=== PATIENT | male | born 1930 | race Two or more races ===

== ENCOUNTER 2018-03-21 19:00 | Inpatient (IN) | payer MEDICAID ==
--- NOTE | 2018-03-21 19:12 | EDPHY ---
H & P Stated Complaint: Weak, Swollen ankles Time Seen by Provider: 03/21/18 19:12 - Personal History Current Tetanus/Diphtheria Vaccine: Unsure Current Tetanus Diphtheria and Acellular Pertussis (TDAP): Unsure - Medical/Surgical History Hx Asthma: No Hx Chronic Respiratory Disease: No Hx Diabetes: No Hx Cardiac Disease: No Hx Renal Disease: No Hx Cirrhosis: No Hx Alcoholism: No Hx HIV/AIDS: No Hx Splenectomy or Spleen Trauma: No Other PMH: Diabetes, bradycardia, prostatectomy, glaucoma L eye - Social History Smoking Status: Never smoked Constitutional: Initial Vital Signs Temperature (C) 36.5 C 03/21/18 19:02 Heart Rate 45 L 03/21/18 19:02 Respiratory Rate 16 03/21/18 19:02 Blood Pressure 173/65 H 03/21/18 19:02 O2 Sat (%) 97 03/21/18 19:02 O2 Delivery Mode Room Air Allergies/Adverse Reactions: No Known Allergies Allergy (Unverified 09/16/16 20:10) Home Medications: Medication Instructions Recorded NK [No Known Home Meds] 03/21/18 Medical Decision Making ED Course/Re-evaluation: CHIEF COMPLAINT: Bradycardia, near syncope HISTORY OF PRESENT ILLNESS: The patient is an 87 y/o male with a history of bradycardia complaining of peripheral edema, near syncope, fatigue, and bradycardia. He was advised to have a pacemaker placed about a year ago. He refused at that time. He fell last week and was worked up for it. He reports having peripheral edema and fatigue prompting his visit. In triage he had a pulse of 28. He denies any other associated symptoms. He would like a pacemaker placed. REVIEW OF SYSTEMS: A 10 point review of systems was performed and is negative with the exception of the elements mentioned in the history of present illness. PHYSICAL EXAM: HR, BP, O2 Sat, RR. Temp noted General Appearance: Alert, well hydrated, appropriate, and non-toxic appearing. Head: Atraumatic without scalp tenderness or obvious injury Eyes: Pupils equal, round, reactive to light and accommodation, EOMI, no trauma , no injection. Ears: Clear bilaterally, no perforation, normal landmarks Nose: Atraumatic, no rhinorrhea, clear. Throat: There is no erythema or exudates, no lesions, normal tonsils, mucus membranes moist. Neck: Supple, nontender, no lymphadenopathy. Respiratory: No retractions, no distress, no wheezes, and no accessory muscle use. Lungs are clear to auscultation bilaterally. Cardiovascular: Bradycardic regular rate and rhythm, no murmurs, rubs, or gallops. Gastrointestinal: Abdomen is soft, nontender, non-distended, no masses, no rebound, no guarding, no peritoneal signs. Musculoskeletal: Normal active ROM of all extremities, atraumatic. Neurological: Alert, appropriate, and interactive. Skin: No rashes, good turgor, no nodules on palpation. Past medical history: Bradycardia Past surgical history: Denies Family history: Non-contributory Social history: Daughter at bedside, lives in [place], retired, DIAGNOSTICS/PROCEDURES/CRITICAL CARE TIME: The 12 lead EKG was interpreted by myself. See hard copy and/or "tracemaster" electronic copy for interpretation. Sinus bradycardia. I spent a total of 30 minutes of critical care time including but not limited to obtaining history, performing a physical exam, ordering interventions and the bedside monitoring of those interventions, collecting and interpreting tests and discussion with consultants but not including time spent performing procedures. DIFFERENTIAL DIAGNOSIS: The differential diagnosis for this patient's symptoms included but was not limited to bradycardia, congestive heart failure, and sepsis. MEDICAL DECISION MAKING: The patient presents with bradycardia, fatigue, near syncope, and peripheral edema. He has a history of bradycardia and refused a pacemaker 1 year ago. He requests a pacemaker now. Temporary pacer pads were placed. He is mentating well. He has a normal blood pressure. His heart rate is staying around 40 in the ED. Plan for CBC, basic metabolic panel, BNP, magnesium , troponin, coagulation, and EKG. I consulted with Dr. Tovar, cardiology, regarding this patient. He agrees to admit for a pacer placement tomorrow, assuming his blood pressure stays good overnight. Dr. Haddad will be the admitting physician. - Data Points Laboratory Results: Laboratory Results 03/21/18 19:16 03/21/18 19:16 03/21/18 03/21/18 03/21/18 19:22 19:21 19:16 WBC RBC Hgb POC Hgb 14.3 gm/dL gm/dL (13.7-17.5) Hct POC Hct 42 % % (40-51) MCV MCH MCHC RDW Plt Count MPV Neut % (Auto) Lymph % (Auto) Braxton % (Auto) Eos % (Auto) Baso % (Auto) Nucleat RBC Rel Count Absolute Neuts (auto) Absolute Lymphs (auto) Absolute Monos (auto) Absolute Eos (auto) Absolute Basos (auto) Absolute Nucleated RBC Immature Gran % Immature Gran # PT INR APTT POC Sodium 141 mEq/L mEq/L (135-145) Sodium POC Potassium 4.0 mEq/L mEq/L (3.3-5.0) Potassium POC Chloride 102 mEq/L mEq/L (97-110) Chloride Carbon Dioxide Anion Gap POC BUN 13 mg/dL mg/dL (7-23) BUN Creatinine POC Creatinine 1.0 mg/dL mg/dL (0.7-1.3) Estimated GFR Glucose POC Glucose 241 mg/dL H mg/dL (70-100) Hemoglobin A1c Pending Estim Average Glucose Pending Calcium Magnesium POC Troponin I 0.00 ng/mL ng/mL (0.00-0.08) NT-Pro-B Natriuret Pep 03/21/18 03/21/18 03/21/18 19:16 19:16 19:16 WBC 7.38 10^3/uL 10^3/uL (3.80-9.50) RBC 4.52 10^6/uL 10^6/uL (4.40-6.38) Hgb 12.7 g/dL L g/dL (13.7-17.5) POC Hgb Hct 38.8 % L % (40.0-51.0) POC Hct MCV 85.8 fL fL (81.5-99.8) MCH 28.1 pg pg (27.9-34.1) MCHC 32.7 g/dL g/dL (32.4-36.7) RDW 12.8 % % (11.5-15.2) Plt Count 181 10^3/uL 10^3/uL (150-400) MPV 11.3 fL fL (8.7-11.7) Neut % (Auto) 50.2 % % (39.3-74.2) Lymph % (Auto) 22.6 % % (15.0-45.0) Braxton % (Auto) 7.0 % % (4.5-13.0) Eos % (Auto) 18.7 % H % (0.6-7.6) Baso % (Auto) 1.2 % % (0.3-1.7) Nucleat RBC Rel Count 0.0 % % (0.0-0.2) Absolute Neuts (auto) 3.70 10^3/uL 10^3/uL (1.70-6.50) Absolute Lymphs (auto) 1.67 10^3/uL 10^3/uL (1.00-3.00) Absolute Monos (auto) 0.52 10^3/uL 10^3/uL (0.30-0.80) Absolute Eos (auto) 1.38 10^3/uL H 10^3/uL (0.03-0.40) Absolute Basos (auto) 0.09 10^3/uL 10^3/uL (0.02-0.10) Absolute Nucleated RBC 0.00 10^3/uL 10^3/uL (0-0.01) Immature Gran % 0.3 % % (0.0-1.1) Immature Gran # 0.02 10^3/uL 10^3/uL (0.00-0.10) PT 14.1 SEC SEC (12.0-15.0) INR 1.07 (0.83-1.16) APTT 26.7 SEC SEC (23.0-38.0) POC Sodium Sodium 142 mEq/L mEq/L (135-145) POC Potassium Potassium 4.1 mEq/L mEq/L (3.3-5.0) POC Chloride Chloride 102 mEq/L mEq/L (97-110) Carbon Dioxide 26 mEq/l mEq/l (22-31) Anion Gap 14 mEq/L mEq/L (8-16) POC BUN BUN 14 mg/dL mg/dL (7-23) Creatinine 0.9 mg/dL mg/dL (0.7-1.3) POC Creatinine Estimated GFR > 60 Glucose 228 mg/dL H mg/dL (70-100) POC Glucose Hemoglobin A1c Estim Average Glucose Calcium 9.2 mg/dL mg/dL (8.5-10.4) Magnesium 1.8 mg/dL mg/dL (1.6-2.3) POC Troponin I NT-Pro-B Natriuret Pep 591 pg/mL H pg/mL (0-450) Point of Care Test Results: Chemistry 03/21/18 03/21/18 19:22 19:21 POC Sodium 141 mEq/L mEq/L (135-145) POC Potassium 4.0 mEq/L mEq/L (3.3-5.0) POC Chloride 102 mEq/L mEq/L (97-110) POC BUN 13 mg/dL mg/dL (7-23) POC Creatinine 1.0 mg/dL mg/dL (0.7-1.3) POC Glucose 241 mg/dL H mg/dL (70-100) POC Troponin I 0.00 ng/mL ng/mL (0.00-0.08) ISTAT H&H 03/21/18 19:21 POC Hgb 14.3 gm/dL gm/dL (13.7-17.5) POC Hct 42 % % (40-51) Departure - Departure Disposition: [facility] [place] [facility] Acute Clinical Impression: Bradycardia, Near syncope Fatigue Qualifiers: Fatigue type: other Qualified Code(s): R53.83 - Other fatigue Condition: Fair
--- NOTE | 2018-03-21 19:20 | CPEKG ---
Heart Rate: 45 RR Interval: 1333 P-R Interval: 184 QRSD Interval: 88 QT Interval: 468 QTC Interval: 405 P Moose: 35 QRS Moose: -23 T Wave Moose: 15 EKG Severity - OTHERWISE NORMAL ECG - EKG Impression: SINUS BRADYCARDIA EKG Impression: BORDERLINE LEFT AXIS DEVIATION Electronically Signed By: Dickson Sauer 21-Mar-2018 20:51:03
[2018-03-21 19:40] LABS: PLATELET COUNT 181 10^3/uL (150-400)
[2018-03-21] MEDS ORDERED: ONDANSETRON DISINTEGRATING 4 MG TAB PO PRN (19:44)
[2018-03-21] MEDS ORDERED: ONDANSETRON 4 MG/2 ML VIAL IVP PRN (19:44)
[2018-03-21] MEDS ORDERED: NS 1,000 ML IV SCH (19:45)
[2018-03-21 19:47] LABS: INR 1.07 (0.83-1.16); PROTIME(PATIENT) 14.1 SEC (12.0-15.0)
[2018-03-21] MEDS ORDERED: D50W 25 GM/50 ML SYR IVP PRN (20:01)
[2018-03-21] MEDS: hydrALAZINE 20 MG/ML VIAL IVP PRN (21:08)
[2018-03-21] MEDS: ACETAMINOPHEN 325 MG TAB PO PRN (21:15)
--- NOTE | 2018-03-21 22:14 | PDHOSCONS ---
History and Physical - Chief Complaint near syncope, fatigue - History of Present Illness The patient is an 87 y/o male with a history of bradycardia complaining of peripheral edema, near syncope, fatigue, and bradycardia. He was advised to have a pacemaker placed about a year ago. He refused at that time. He had a syncopal episode last week and managed at [facility]. Since discharge from there, he has continued to feel weak and therefore presented here for further mgmt. In the ER he has a pulse of 28. Cardiology has been consulted and the plan is for pacemaker tomorrow. He denies cp or sob. He denies fever Past medical history: Bradycardia, DM-II Past surgical history: Prostate surgery Family history: Non-contributory Social history: Daughter at bedside, lives in [place], retired, EKG with sinus bradycardia History Information - Allergies/Home Medication List Allergies/Adverse Reactions: No Known Allergies Allergy (Unverified 09/16/16 20:10) Home Medications: NK [No Known Home Meds] 03/21/18 [Last Taken Unknown] I have personally reviewed and updated: medical history, social history - Past Medical History Additional medical history: Bradycardia: Per past medical records, patient was offered a pacemaker for this in the past has refused. It is unclear if he has had recent follow-up with the premium representative regarding this issue. Dm 2: Noncompliant with metformin - Surgical History Additional surgical history: TURP - Family History Positive for: non-pertinent (Parents ) - Social History Smoking Status: Never smoked Additional social history: Patient is originally from [place] and splits his time between [place] and [place], where most of his children reside. He is retired, formerly in agricultural work Review of Systems Review of Systems: ROS: 10pt was reviewed & negative except for what was stated in HPI & below Physical Exam Physical Exam: Temp Pulse Resp BP Pulse Ox 36.6 C 40 L 14 188/57 H 96 03/21/18 20:20 03/21/18 20:20 03/21/18 20:20 03/21/18 21:08 03/21/18 20:20 Constitutional: no apparent distress Eyes: PERRL, EOMI Ears, Nose, Mouth, Throat: moist mucous membranes, hearing normal Cardiovascular: bradycardia, edema (trace) Respiratory: no respiratory distress, no rales or rhonchi Gastrointestinal: normoactive bowel sounds, soft, non-tender abdomen Skin: warm Musculoskeletal: generalized weakness Neurologic: AAOx3 Psychiatric: interacting appropriately, not anxious, not encephalopathic Lymph, Heme, Immunologic: No petechiae Lab Data & Imaging Review 03/21/18 19:16 03/21/18 19:16 WBC 7.38 10^3/uL (3.80-9.50) 03/21/18 19:16 RBC 4.52 10^6/uL (4.40-6.38) 03/21/18 19:16 Hgb 12.7 g/dL (13.7-17.5) L 03/21/18 19:16 POC Hgb 14.3 gm/dL (13.7-17.5) 03/21/18 19:21 Hct 38.8 % (40.0-51.0) L 03/21/18 19:16 POC Hct 42 % (40-51) 03/21/18 19:21 MCV 85.8 fL (81.5-99.8) 03/21/18 19:16 MCH 28.1 pg (27.9-34.1) 03/21/18 19:16 MCHC 32.7 g/dL (32.4-36.7) 03/21/18 19:16 RDW 12.8 % (11.5-15.2) 03/21/18 19:16 Plt Count 181 10^3/uL (150-400) 03/21/18 19:16 MPV 11.3 fL (8.7-11.7) 03/21/18 19:16 Neut % (Auto) 50.2 % (39.3-74.2) 03/21/18 19:16 Lymph % (Auto) 22.6 % (15.0-45.0) 03/21/18 19:16 Ventura % (Auto) 7.0 % (4.5-13.0) 03/21/18 19:16 Eos % (Auto) 18.7 % (0.6-7.6) H 03/21/18 19:16 Baso % (Auto) 1.2 % (0.3-1.7) 03/21/18 19:16 Nucleat RBC Rel Count 0.0 % (0.0-0.2) 03/21/18 19:16 Absolute Neuts (auto) 3.70 10^3/uL (1.70-6.50) 03/21/18 19:16 Absolute Lymphs (auto) 1.67 10^3/uL (1.00-3.00) 03/21/18 19:16 Absolute Monos (auto) 0.52 10^3/uL (0.30-0.80) 03/21/18 19:16 Absolute Eos (auto) 1.38 10^3/uL (0.03-0.40) H 03/21/18 19:16 Absolute Basos (auto) 0.09 10^3/uL (0.02-0.10) 03/21/18 19:16 Absolute Nucleated RBC 0.00 10^3/uL (0-0.01) 03/21/18 19:16 Immature Gran % 0.3 % (0.0-1.1) 03/21/18 19:16 Immature Gran # 0.02 10^3/uL (0.00-0.10) 03/21/18 19:16 PT 14.1 SEC (12.0-15.0) 03/21/18 19:16 INR 1.07 (0.83-1.16) 03/21/18 19:16 APTT 26.7 SEC (23.0-38.0) 03/21/18 19:16 POC Sodium 141 mEq/L (135-145) 03/21/18 19:21 Sodium 142 mEq/L (135-145) 03/21/18 19:16 POC Potassium 4.0 mEq/L (3.3-5.0) 03/21/18 19:21 Potassium 4.1 mEq/L (3.3-5.0) 03/21/18 19:16 POC Chloride 102 mEq/L (97-110) 03/21/18 19:21 Chloride 102 mEq/L (97-110) 03/21/18 19:16 Carbon Dioxide 26 mEq/l (22-31) 03/21/18 19:16 Anion Gap 14 mEq/L (8-16) 03/21/18 19:16 POC BUN 13 mg/dL (7-23) 03/21/18 19:21 BUN 14 mg/dL (7-23) 03/21/18 19:16 Creatinine 0.9 mg/dL (0.7-1.3) 03/21/18 19:16 POC Creatinine 1.0 mg/dL (0.7-1.3) 03/21/18 19:21 Estimated GFR > 60 03/21/18 19:16 Glucose 228 mg/dL (70-100) H 03/21/18 19:16 POC Glucose 184 mg/dL (70-100) H 03/21/18 20:49 Calcium 9.2 mg/dL (8.5-10.4) 03/21/18 19:16 Magnesium 1.8 mg/dL (1.6-2.3) 03/21/18 19:16 POC Troponin I 0.00 ng/mL (0.00-0.08) 03/21/18 19:22 NT-Pro-B Natriuret Pep 591 pg/mL (0-450) H 03/21/18 19:16 Assessment & Plan Assessment: #Symptomatic Sinus Bradycardia (Acute) #HTN: BP is actually elevated #Fatigue (Acute) #Near syncope (Acute) #DM #BPH Plan: Pacer pads are on Tele TTE Pacemaker in a.m. unless decompensates tonight ISS, optimize glucose monitor BP. Will not treat aggressively ashlee Holley Full code, confirmed at bedside total critical care time is 45 minutes
[2018-03-22] MEDS: ACETAMINOPHEN 325 MG TAB PO PRN ×2 (02:22→06:06)
[2018-03-22 04:54] LABS: PLATELET COUNT 163 10^3/uL (150-400)
[2018-03-22] MEDS ORDERED: ceFAZolin 2 GM/DEXTROSE 100 ML IV ONE ×2 (06:00→11:51)
--- NOTE | 2018-03-22 07:26 | PDMN ---
Medical Necessity Medical necessity: Pt meets IP criteria per MD; est los >2 mn for eval/tx of symptomatic bradycardia w/HR of 28, near syncope, fatigue, htn & peripheral edema; requiring Cardiology consult & pacemaker placement; per H&P & order
--- NOTE | 2018-03-22 09:53 | PDCARCONS ---
Cardiology Consult Reason for Consult: Slow heart rates and history of syncope (about one week ago) Chief Complaint: Feeling poorly (post fall? bradycardia? chest tightness?) Requesting Physician: Hospitalist team History of Present Illness: Patient is an 87 y/o male with history of HTN, DM (not currently on therapy), but no CAD or HLP, who presents to [facility] with complaints of weakness and lower extremity swelling. Patient is Macedonian speaking only, but with help of family ( initially) and formal translators, discussion about symptoms and plans was undertaken. In the room today, the patient stated that he was not feeling well secondary to the bed (not comfortable), as well as neck and head pains (from the fall about one week ago). At that time, the patient was taken to [facility], and work up for the fall ensued. No discussion, according to patient or family, about PPM need. About one year ago, bradycardia was noted, and recommendations were for a pacemaker at that time. The patient refused for reasons that are not clear. Outside of last week, there has been no syncope or lightheadedness noted. All the malaise that is currently noted has only been since the fall. 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 Blood pressure is noted to be hypertensive (>180 mm Hg systolic) with uncertainty on the length of time this has been noted. No stress testing has been performed with notable CV risk factors (HTN, male, age >50, DM (untreated)). No fevers or chills. No PND or orthopnea. Neck, head and chest discomfort is noted (? query fall). Remainder of the 12 point review of systems is unremarkable. History Information - Allergies/Home Medication List Allergies/Adverse Reactions: No Known Allergies Allergy (Unverified 09/16/16 20:10) Home Medications: NK [No Known Home Meds] 03/21/18 [Last Taken Unknown] I have personally reviewed and updated: family history, medical history, social history, surgical history Past Medical History: - Past Medical History diabetes type 2, hypertension - Surgical History Additional surgical history: surgery - Family History Positive for: hypertension - Social History Smoking Status: Never smoked Alcohol Use: None Drug Use: None Cardiac History - Cardiac History Cardiac Risk Factors: hypertension (>140/90), diabetes mellitus, age > 65, male Timing/Duration: Weeks Severity: mild Severity Scale: 3 Location: substernal Activities at Onset: none Modifying Factors: improves with: rest Associated Symptoms: chest pain, weakness RANI Risk Evaluation age greater or equal to 65: yes greater or equal to 3 CAD risk factors: no known CAD(stenosis greater or eqaul to 50%): no ASA use in past 7 days: no severe angina(greater or equal to 2 episodes in 24hrs): no EKG ST changes greater or equal to 0.5mm: no positive cardiac marker: no Total Score: 1 RANI Score: 4.7% risk Physical Exam Physical Exam: Temp Pulse Resp BP Pulse Ox 36.7 C 43 L 18 185/70 H 96 03/22/18 07:28 03/22/18 07:28 03/22/18 07:28 03/22/18 07:28 03/22/18 07:28 Constitutional: no apparent distress, appears nourished, not in pain Eyes: PERRL Ears, Nose, Mouth, Throat: moist mucous membranes, hearing normal, ears appear normal Cardiovascular: regular rate and rhythym (bradycardia), pulses symmetric bilaterally, bradycardia, No systolic murmur, No irregularly irregular, No diastolic murmur, No JVD, No edema Peripheral Pulses: 2+: dorsalis-pedis (R), dorsalis-pedis (L) Respiratory: no respiratory distress, no rales or rhonchi, clear to auscultation Gastrointestinal: normoactive bowel sounds Skin: warm, normal color, no rashes or abrasions Musculoskeletal: full muscle strength, normal joint ROM Neurologic: AAOx3, sensation intact bilaterally, CN II-XII Intact Psychiatric: interacting appropriately, not anxious, not encephalopathic Lab and Imaging 03/22/18 04:01 03/22/18 04:01 WBC 7.50 10^3/uL (3.80-9.50) 03/22/18 04:01 RBC 4.65 10^6/uL (4.40-6.38) 03/22/18 04:01 Hgb 12.8 g/dL (13.7-17.5) L 03/22/18 04:01 POC Hgb 14.3 gm/dL (13.7-17.5) 03/21/18 19:21 Hct 38.8 % (40.0-51.0) L 03/22/18 04:01 POC Hct 42 % (40-51) 03/21/18 19:21 MCV 83.4 fL (81.5-99.8) 03/22/18 04:01 MCH 27.5 pg (27.9-34.1) L 03/22/18 04:01 MCHC 33.0 g/dL (32.4-36.7) 03/22/18 04:01 RDW 12.8 % (11.5-15.2) 03/22/18 04:01 Plt Count 163 10^3/uL (150-400) 03/22/18 04:01 MPV 11.8 fL (8.7-11.7) H 03/22/18 04:01 Neut % (Auto) 59.6 % (39.3-74.2) 03/22/18 04:01 Lymph % (Auto) 17.7 % (15.0-45.0) 03/22/18 04:01 Logan % (Auto) 6.1 % (4.5-13.0) 03/22/18 04:01 Eos % (Auto) 15.1 % (0.6-7.6) H 03/22/18 04:01 Baso % (Auto) 1.2 % (0.3-1.7) 03/22/18 04:01 Nucleat RBC Rel Count 0.0 % (0.0-0.2) 03/22/18 04:01 Absolute Neuts (auto) 4.47 10^3/uL (1.70-6.50) 03/22/18 04:01 Absolute Lymphs (auto) 1.33 10^3/uL (1.00-3.00) 03/22/18 04:01 Absolute Monos (auto) 0.46 10^3/uL (0.30-0.80) 03/22/18 04:01 Absolute Eos (auto) 1.13 10^3/uL (0.03-0.40) H 03/22/18 04:01 Absolute Basos (auto) 0.09 10^3/uL (0.02-0.10) 03/22/18 04:01 Absolute Nucleated RBC 0.00 10^3/uL (0-0.01) 03/22/18 04:01 Immature Gran % 0.3 % (0.0-1.1) 03/22/18 04:01 Immature Gran # 0.02 10^3/uL (0.00-0.10) 03/22/18 04:01 PT 14.1 SEC (12.0-15.0) 03/21/18 19:16 INR 1.07 (0.83-1.16) 03/21/18 19:16 APTT 26.7 SEC (23.0-38.0) 03/21/18 19:16 POC Sodium 141 mEq/L (135-145) 03/21/18 19:21 Sodium 143 mEq/L (135-145) 03/22/18 04:01 POC Potassium 4.0 mEq/L (3.3-5.0) 03/21/18 19:21 Potassium 3.8 mEq/L (3.3-5.0) 03/22/18 04:01 POC Chloride 102 mEq/L (97-110) 03/21/18 19:21 Chloride 110 mEq/L (97-110) 03/22/18 04:01 Carbon Dioxide 25 mEq/l (22-31) 03/22/18 04:01 Anion Gap 8 mEq/L (8-16) 03/22/18 04:01 POC BUN 13 mg/dL (7-23) 03/21/18 19:21 BUN 13 mg/dL (7-23) 03/22/18 04:01 Creatinine 0.7 mg/dL (0.7-1.3) 03/22/18 04:01 POC Creatinine 1.0 mg/dL (0.7-1.3) 03/21/18 19:21 Estimated GFR > 60 03/22/18 04:01 Glucose 161 mg/dL (70-100) H 03/22/18 04:01 POC Glucose 184 mg/dL (70-100) H 03/21/18 20:49 Calcium 8.8 mg/dL (8.5-10.4) 03/22/18 04:01 Magnesium 1.8 mg/dL (1.6-2.3) 03/21/18 19:16 POC Troponin I 0.00 ng/mL (0.00-0.08) 03/21/18 19:22 NT-Pro-B Natriuret Pep 591 pg/mL (0-450) H 03/21/18 19:16 Visualized and Interpreted EKG results: Yes EKG Interpretation: Positive for: normal sinsus rhythm (sinus bradycardia) Telemetry: sinus bradycardia with rates of 45-50 bpm A/P Assessment: Patient is an 87 y/o male with history of DM (untreated at present), HTN (also relatively untreated), with noted bradycardia, and recommendations in the remote past for PPM implant. At that time, the patient refused. One week ago, syncope was noted (uncertain on etiology) with work up post fall at [facility]. No discussion (per family reports) about need for PPM at that time. Patient was "feeling poorly" yesterday, and opted for admission to [facility]. Blood pressure continues to be moderately elevated (>180 mm Hg systolic) and heart rates are slow (45-50 bpm), but sinus. Chief complaints at present are tenderness to head and neck, as well as tightness to anterior chest - thought secondary to the fall by patient and family. No cardiac biomarker elevation and no dynamic ST/T wave changes to ECG. Plan: Recommendations for aggressive blood pressure control today (would refrain from PRN therapy, and start scheduled therapy). No beta blockers for obvious reasons. Would also consider the addition of ACEi therapy with DM, normal renal function, and likely need for dual antihypertensive therapy with the pressures noted. Advance diet this morning (patient was voicing hunger). Would begin more aggressive DM control (this was to be started as well, but compliance with therapy has been poor). Monitor heart rates overnight. NPO after midnight for PPM - contingent on better blood pressure control. Patient should also have MPI testing prior to discharge with HTN (poor control) , DM (no control), male, aged greater than 50, and the complaints of "chest tightness". Patient and all family were in agreement with these plans.
[2018-03-22] MEDS: hydrALAZINE 20 MG/ML VIAL IVP PRN (11:27)
[2018-03-22] MEDS: INSULIN LISPRO 100 UNIT/ML SC SCH ×3 (11:48→21:10)
[2018-03-22] MEDS: LISINOPRIL 2.5 MG TAB PO SCH (13:02)
[2018-03-22] MEDS: oxyCODONE IR 5 MG TAB PO PRN ×3 (13:50→23:12)
[2018-03-22] MEDS ORDERED: D50W 25 GM/50 ML VIAL IVP PRN (16:00)
--- NOTE | 2018-03-22 16:03 | ASMTCMCOM ---
CM Note CM Note Notes: 03/22/2018 Case Management Note Discussed pt during rounds this morning. Pt admitted for symptomatic bradycardia. Plan for pacer tomorrow. Pt is chinese speaking and has strong family supports. There are are PT and OT evals pending. Case Management d/c poc: to be determined. Case Management to follow. Date Signed: 03/22/2018 04:03 PM Electronically Signed By:Sonal Washington RN
[2018-03-22] MEDS: hydrALAZINE 10 MG TAB PO SCH ×2 (16:13→23:11)
--- NOTE | 2018-03-22 17:18 | HOSPPROG ---
Hospitalist Progress Note Assessment/Plan: Assessment: 87-year-old male presents with acute symptomatic bradycardia and hypertensive urgency Plan: 1. Acute symptomatic bradycardia. Patient with heart rates in the 40s, sinus bradycardia on EKG, personally interpreted, resulting in generalized symptoms -discussed with Dr. Jack Lamb, we both agree the patient warrants permanent pacemaker placement but given the patient's persistent, significantly elevated blood pressure, this places patient at high risk for bleeding into the pacemaker pocket and is advisable for us to acutely manage the blood pressure prior to performing pacemaker placement -checking echocardiogram -will monitor on telemetry -if becomes hypotensive or symptoms worsening, will transcutaneously pace until permanent pacemaker can be placed 2. Hypertensive urgency. Acute worsening of chronic hypertension, unclear whether this is secondary to inadequate outpatient management verses an acute ischemic event -initiate hydralazine and lisinopril today, gauge effect 3. Paresis. Acute, new problem this provider, further workup indicated. Right upper extremity, onset approximately 1 week ago in the setting of a mechanical fall -order outside records from [facility] where the patient received his initial evaluation -if MRI of brain, cervical, thoracic spine has not been performed, will get prior to placement of pacemaker as I suspect the patient may have experienced a subacute CVA -work with physical and occupational therapy -given that the patient's left upper extremity will be immobilized after the pacemaker, and the patient's right upper extremity is significantly impaired, the patient will most likely require usp facility following this episode of care given that he will be unsafe to mobilize independently -given upper extremity edema, will check D-dimer and get upper extremity ultrasound if elevated 4. Hyperglycemia. Most likely secondary to undiagnosed undertreated diabetes -hemoglobin A1c pending -initiate insulin sliding scale -patient will most likely require metformin for likely new diagnosis of diabetes , hold on initiating as the patient will be NPO in a.m. 5. BPH. Acute urinary retention on likely chronic condition, patient with Holley catheter placed secondary to inability to void -initiate tamsulosin HS -continue Holley catheter and outpatient urology assessment, potentially inpatient trial void prior to discharge #Symptomatic Sinus Bradycardia (Acute) #HTN: BP is actually elevated #Fatigue (Acute) #Near syncope (Acute) #DM #BPH Diet. Diabetic, NPO in a.m. Prophylaxis. High risk patient, Lovenox 40, hold in a.m. For procedure Code. Full Disposition. Anticipated discharge uncertain this time, anticipated length stay is greater than 48 hr for reasonable medical necessity including acute symptomatic bradycardia with high risk comorbid acute paresis and likely new diagnosis of diabetes, requiring further workup as well as pacemaker placement. Subjective: Patient reports ongoing right upper extremity paresis, he is feeling poorly reporting that he is feeling a constriction around his upper chest and neck Objective: Vital Signs Temp Pulse Resp BP Pulse Ox 36.6 C 48 L 16 154/75 H 96 03/22/18 15:30 03/22/18 15:30 03/22/18 15:30 03/22/18 15:30 03/22/18 15:30 Laboratory Results 03/22/18 04:01 03/22/18 04:01 03/21/18 03/22/18 03/23/18 05:59 05:59 05:59 Intake Total 583 Output Total 1200 850 Balance -617 -850 PT 14.1 SEC (12.0-15.0) 03/21/18 19:16 INR 1.07 (0.83-1.16) 03/21/18 19:16 - Physical Exam Constitutional: no apparent distress, chronically ill appearing, uncomfortable, No not in pain (Mild) Cardiovascular: systolic murmur (1/6 at apex), bradycardia, edema (Trace soft tissue right upper extremity), No irregularly irregular, No tachycardia Respiratory: no respiratory distress, no rales or rhonchi, clear to auscultation Gastrointestinal: normoactive bowel sounds, soft, non-tender abdomen, no palpable masses, No distension Musculoskeletal: other (Full range of motion of the neck without substantial pain, no tenderness to palpation over the bilateral trapezius muscles, some muscular atrophy in the right upper extremity as well as the bilateral calf muscles, mild contraction in right upper extremity at the wrist and at the elbow ) Neurologic: AAOx3, weakness (Right wrist on extensor as well as right elbow extensor), No sensation intact bilaterally (Left palmar paresthesias), No facial droop Psychiatric: not anxious, flat affect, other (Follows commands, responds to verbal stimuli), No agitated ICD10 Worksheet Patient Problems: Problems Problem Status Onset Bradycardia Acute Hyperglycemia Acute Dehydration Acute Near syncope Acute Fatigue Acute
[2018-03-23] MEDS ORDERED: BACITRACIN IRRIGATION/NS 50,000 UNITS/1,000 ML BTL IRR ONE (06:00)
[2018-03-23] MEDS ORDERED: ceFAZolin 2 GM/DEXTROSE 100 ML IV ONE (06:00)
[2018-03-23] MEDS ORDERED: NS 1,000 ML IV ONE (06:00)
[2018-03-23] MEDS: LISINOPRIL 2.5 MG TAB PO SCH (08:11)
[2018-03-23] MEDS: hydrALAZINE 10 MG TAB PO SCH ×3 (08:11→20:55)
[2018-03-23] MEDS: INSULIN LISPRO 100 UNIT/ML SC SCH ×3 (08:14→17:24)
--- NOTE | 2018-03-23 09:44 | CPEKG ---
Heart Rate: 52 RR Interval: 1154 P-R Interval: 188 QRSD Interval: 96 QT Interval: 476 QTC Interval: 443 P Raymond: 41 QRS Raymond: -27 T Wave Raymond: 53 EKG Severity - BORDERLINE ECG - EKG Impression: SINUS RHYTHM EKG Impression: BORDERLINE LEFT AXIS DEVIATION EKG Impression: BORDERLINE T ABNORMALITIES, ANT-LAT LEADS Electronically Signed By: Jack Lamb 25-Mar-2018 07:33:40
--- NOTE | 2018-03-23 11:26 | ECHO ---
[email or web address] [place] [id number] Main: [phone] Fax: Transthoracic Echocardiogram Name: FREDI PRICE MR#: [id number] Study Date: 03/23/2018 Study Time: 09:21 AM Date of : 1930 Age: 87 year(s) Height: 175.3 cm (69 in.) Weight: 49.9 kg (110 lb.) BSA: 1.6 m2 Gender: Male Examination: Echo Indication: Bradycardia Image Quality: Contrast: Requested by: Rick Haddad BP: 158 mmHg/68 mmHg Heart Rate: Rhythm: Indication: Bradycardia Procedure Staff Livestock Slaughterer: Myra Gutierres RDCS Reading Physician: Marshall Fernandez MD Requesting Provider: Conclusions: No pericardial effusion. Concentric left ventricular hypertrophy with preserved LV systolic function. No valvular abnormalities by Doppler 2 dimensional study. Mild calcification of the mitral valve annulus. Measurements: Chambers Valvular Assessment AV/MV Valvular Assessment TV/PV Normal Normal Normal Name Value Range Name Value Range Name Value Range Ao Chery (MM): 3.4 cm (2.2 cm-3.7 AV Vmax: 1.32 m/s (1 m/s-1.7 cm) m/s) LVDd (2D): 4.2 cm (4.2 cm-5.9 AV maxP mmHg ( - ) cm) AV meanP mmHg ( - ) LVEF (MOD4): 78 % (>=55 %) MV E Vmax: 0.65 m/s ( - ) EF Range: 65-70 % MV A Vmax: 0.85 m/s ( - ) MV E/A: 0.76 ( - ) Continued Measurements: Chambers Valvular Assessment AV/MV Name Value Name Value LADs: 3.6 cm MV E/E' Septal: 15.40 MV E/E' Lateral: 10.70 Additional Vessels Name Value Ao Ascendin.5 cm Patient: FREDI PRICE Study Date: 03/23/2018 Page 1 of 2 09:21 AM Findings: Left Ventricle: Normal size left ventricle. Mild concentric LV hypertrophy. Normal global systolic LV function. The ejection fraction is estimated to be 65-70 %. No regional wall motion abnormality. Right Ventricle: Normal size right ventricle. Left Atrium: The left atrium is normal in size. Right Atrium: The right atrium is normal in size. Mitral Valve: Mild mitral annular calcification. Aortic Valve: The aortic valve is normal in appearance and function. Tricuspid Valve: The tricuspid valve is normal in appearance and function. Pulmonic Valve: Pulmonary valve not well visualized. Aorta: The aorta is normal. Pericardium: No pericardial effusion. (No Signature Object) Patient: FREDI PRICE Study Date: 03/23/2018 Page 2 of 2 09:21 AM [id number]
[2018-03-23] MEDS: oxyCODONE IR 5 MG TAB PO PRN ×3 (12:29→22:26)
[2018-03-23] MEDS ORDERED: D5W 1/2 NS W/ 20 KCl/L 1,000 ML IV SCH (13:45)
--- NOTE | 2018-03-23 15:16 | PDCARPN ---
Cardiology Progress Note Chief Complaint: Right arm numbness and a fall (without clear etiology) Assessment/Plan: Assessment: 03-23-18 Patient doing fair today. No cardiovascular complaints, but ongoing complaints of neck, back, and right arm pains (rather severe). Paperwork from [facility] was obtained, and imaging studies were reviewed. There was NOT a CVA noted (CT/MRI) , but there was severe cervical stenosis noted with cord swelling/compression noted. Neuro and neurosurgery input was provided. Etiology of the fall was not clearly noted. Bradycardia has been noted for several years. In 2010, there was discussion about pacemaker implantation, but bradycardia was not severe, and chronotropic competence was noted on stress testing (at that time). On telemetry at present, the patient is maintaining heart rates of 50-60 bpm. No overt symptoms are noted with this rate. 03-22-18 Patient is an 87 y/o male with history of HTN, DM (not currently on therapy), but no CAD or HLP, who presents to [facility] with complaints of weakness and lower extremity swelling. Patient is Hebrew speaking only, but with help of family ( initially) and formal translators, discussion about symptoms and plans was undertaken. In the room today, the patient stated that he was not feeling well secondary to the bed (not comfortable), as well as neck and head pains (from the fall about one week ago). At that time, the patient was taken to [facility], and work up for the fall ensued. No discussion, according to patient or family, about PPM need. About one year ago, bradycardia was noted, and recommendations were for a pacemaker at that time. The patient refused for reasons that are not clear. Outside of last week, there has been no syncope or lightheadedness noted. All the malaise that is currently noted has only been since the fall. 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 Blood pressure is noted to be hypertensive (>180 mm Hg systolic) with uncertainty on the length of time this has been noted. No stress testing has been performed with notable CV risk factors (HTN, male, age >50, DM (untreated)). No fevers or chills. No PND or orthopnea. Neck, head and chest discomfort is noted (? query fall). Plan: (1) Would have aggressive OT/PT therapy started (2) Neuro and neurosurgery input at [facility] should be sought for reassessment of the recommendations provided (but not implemented by [facility]) (3) Would maintain telemetry monitoring while in house (4) At the time of discharge, recommendations for patient to have 30 day monitor ([employer]) (5) Outpatient follow up with cardiology is recommended within one week (of discharge) (6) Aggressive DM therapy is indicated given the elevated A1C noted in recent past (7) Blood pressure management (without louann agents) should be maintained Subjective: Complaints of neck, back, and right arm/elbow pains Reviewed/Discussed With: family, hospitalist, multidisciplinary team Objective: Vital Signs (8 Hrs) Temp Pulse Resp BP Pulse Ox 03/23/18 11:28 36.4 C 53 L 20 148/63 H 94 03/23/18 07:22 36.4 C 99 16 158/68 H 95 Intake/Output (24 Hrs) 03/22/18 03/23/18 03/24/18 05:59 05:59 05:59 Intake Total 583 650 Output Total 1200 1650 Balance -617 -1000 Intake: Oral (ml) 650 IV Infused (ml) 583 Ns 1,000 ml @ 60 mls/hr 583 IV CONT CHACORTA Rx#: [id number] Output: Urine (ml) 1200 1650 Catheter 1200 1650 Other: Weight 54.5 kg Result Diagrams: 03/22/18 04:01 03/22/18 04:01 Telemetry: Sinus rhythm - Physical Exam Constitutional: WDWN, healthy appearing, apparent distress (due to neck and shoulder pains) Eyes: EOMI Ears, Nose, Mouth, Throat: moist mucous membranes Cardiovascular: regular rate and rhythm, pulses symmetric bilat, No jugular vein distention Peripheral Pulses: 2+: dorsalis-pedis (R), dorsalis-pedis (L) Respiratory: clear to auscultate bilat Skin: no edema Musculoskeletal: muscular tenderness (to right shoulder, arm, and neck) Neurologic: AAOx3 Psychiatric: interactive, following commands ICD10 Worksheet Patient Problems: Problems Problem Status Onset Bradycardia Acute Fatigue Acute Near syncope Acute Dehydration Acute Hyperglycemia Acute
--- NOTE | 2018-03-23 15:32 | ASMTCMCOM ---
CM Note CM Note Notes: Pts case discussed in morning rounds. OT is recommending inpatient rehab. PT recommendations are pending. eGma Mahoney is following this case. [facility]. CM to follow. Plan: TBD Date Signed: 03/23/2018 03:31 PM Electronically Signed By:HAILEE Chung
[2018-03-23] MEDS ORDERED: ASPIRIN EC 81 MG TAB PO SCH (16:00)
[2018-03-23] MEDS: metFORMIN HCL 500 MG TAB PO SCH ×2 (17:18→17:36)
[2018-03-23] MEDS: DEXAMETHASONE 2 MG TAB PO SCH ×2 (17:19→20:55)
--- NOTE | 2018-03-23 17:54 | HOSPPROG ---
Hospitalist Progress Note Assessment/Plan: Assessment: 87-year-old male presents with persistent fatigue s/p fall 1 week ago that resulted in a hospitalization at [facility] and was most likely 2/2 gait instability and evolving paresis/paresthesia from cervical stenosis and chord compression/edema. He was noted to have sinus bradycardia on presentation, and, initially a PPM was planned; but after extensive coordination with Dr. Lamb, we have decided that it is very inconclusive whether his fall was occasioned by his bradycardia (which has reportedly been present for at least 1 year) or his cervical stenosis symptoms, and, since he requires immediate tx and therapy for his spinal stenosis, we are recommending that that be the focus of his immediate care, and will continue monitoring his bradycardia. Plan: # Cervical stenosis. Acute chord compression and edema (noted on 03/18/18 cervical MRI w/ NSGY consultation by Dr. Valero at [facility]) -Dr. Valero had recommended Dex 2mg bid + Gabapentin w/ therapy and outpt reassessment in his 03/18/18 consult note, but, per patient family, he was discharged from [facility] w/o any meds, home services, or recommended follow-up -his current symptoms are likely the result of ongoing stenosis/compression/ edema, so no indication for repeat MRI, but will start Dex 2mg bid now (dose reduced given his underlying DM2) and gauge effect, can uptitrate if not seeing any benefit -pain control also an issue (in posterior neck and RUE), so gabapentin 300mg HS started, uptitrate q3 days -PRN oxy IR/tylenol -PT/OT, patient cannot complete ADLs and will require rehab, either inpt or SNF # Sinus bradycardia. Patient with heart rates in the 40s, sinus bradycardia on EKG, but unclear whether it is the cause of his generalized symptoms for fatigue /weakness, as his cervical stenosis may be the culprit -discussed with Dr. Jack Lamb, we both agree the patient should have ongoing monitoring while he engages in therapy/tx for the cervical stenosis, which will require aggressive therapy of BOTH upper extremities (which would be limited if PPM placed now) -if becomes hypotensive or symptoms worsening, will transcutaneously pace until permanent pacemaker can be placed -of note, HR 90-100s from 6/24 PM entered inaccurately # Hypertensive urgency. Acute worsening of chronic hypertension, likely secondary to inadequate outpatient management -initiate hydralazine and lisinopril, gauge effect # RUE paresis and LUE paresthesia. 2/2 cervical stenosis w/ cord compression -most recent brain MRI 03/16/18, no e/o CVA, also had CTA w/o any vascular stenosis, no further brain imaging recommended at this time -require aggressive OT -Inpt Rehab consult recommended, placed # DM2 w/ hyperglycemia. Untreated, A1c 9.1% -initiated insulin sliding scale -started on metformin 500mg bid -if ongoing insulin use tomorrow and diet stabilized, start 5u lantus and uptitrate # Acute urinary retention on likely chronic condition, likely underlying BPH, patient with Mc catheter placed secondary to inability to void at [facility] w/o additional w/u -initiate tamsulosin HS -continue Mc catheter and outpatient urology assessment, potentially inpatient trial void prior to discharge # Superficial thrombophlebitis. RUE, no DVT on US -elevate/warm compress Diet. Diabetic Prophylaxis. High risk patient, Lovenox 40 Code. Full Disposition. Anticipated discharge uncertain this time, likely SNF/rehab vs. Inpt Rehab. I counseled the patient and his family extensively regarding all of the issues outlined above. They are currently working together to determine a medical power of child's nurse. Subjective: patient w/ pain this AM, responded well to oxy IR but patient is now somnolent Objective: Vital Signs Temp Pulse Resp BP Pulse Ox 37.2 C 62 16 127/51 H 93 03/23/18 15:59 03/23/18 15:59 03/23/18 15:59 03/23/18 15:59 03/23/18 15:59 Laboratory Results 03/22/18 04:01 03/22/18 04:01 03/22/18 03/23/18 03/24/18 05:59 05:59 05:59 Intake Total 583 650 Output Total 1200 1650 Balance -617 -1000 PT 14.1 SEC (12.0-15.0) 03/21/18 19:16 INR 1.07 (0.83-1.16) 03/21/18 19:16 - Time Spent With Patient Time Spent with Patient: greater than 35 minutes Time Spent with Patient: Greater than 35 minutes spent on this patients care, greater than 50% of time spent counseling, educating, and coordinating care regarding the above mentioned plan. - Physical Exam Constitutional: no apparent distress, not in pain, chronically ill appearing, No uncomfortable Cardiovascular: regular rate and rhythym, no murmur, rub, or gallop, edema ( trace RUE) Respiratory: no respiratory distress, no rales or rhonchi, clear to auscultation , reduced air movement (shallow breathing) Gastrointestinal: normoactive bowel sounds, soft, non-tender abdomen, no palpable masses Genitourinary: mc in urethra Neurologic: weakness (R hand quantitative research analyst 3/5 w/ impaired elbow and wrist extension), No sensation intact bilaterally (L palm paresthesia) Psychiatric: not anxious, other (somnolent and arousable to tactile stimuli), No agitated ICD10 Worksheet Patient Problems: Problems Problem Status Onset Bradycardia Acute Fatigue Acute Near syncope Acute Dehydration Acute Hyperglycemia Acute
[2018-03-23] MEDS: ENOXAPARIN 40 MG/0.4 ML SYR SC SCH (18:56)
[2018-03-23] MEDS ORDERED: GABAPENTIN 300 MG CAP PO SCH (21:00)
--- NOTE | 2018-03-24 08:30 | HOSPPROG ---
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 (no CVA on MRI) - seen last week at [facility]; Dr Valero recommended 2 weeks trial of steroids, then consider surgery - cont gabapentin 300 HS and decadron 2 bid - cont oxy IR - will need SNF/inpatient rehab # R elbow pain - will check XR # sinus bradycardia - per cards - likely no plans for ppm at present # hypertensive urgency - resolved - incr lisinopril to 5 - decr hydral to 5 tid # DM2 - a1c 9.1% - cont metformin, consider uptitration - cont lispro SSI # urinary retention - mc placed at [facility]; consider voiding trial Subjective: c/o R wlbow pain today - was not present yesterday Objective: Vital Signs Temp Pulse Resp BP Pulse Ox 36.7 C 50 L 20 101/47 L 93 03/24/18 08:00 03/24/18 08:00 03/24/18 08:00 03/24/18 08:00 03/24/18 08:00 Laboratory Results 03/22/18 04:01 03/24/18 03:58 03/23/18 03/24/18 03/25/18 05:59 05:59 05:59 Intake Total 650 500 Output Total 1650 520 30 Balance -1000 -20 -30 PT 14.1 SEC (12.0-15.0) 03/21/18 19:16 INR 1.07 (0.83-1.16) 03/21/18 19:16 chart reviewed [facility] records reviewed - Physical Exam Constitutional: no apparent distress, appears nourished Cardiovascular: systolic murmur, bradycardia, No irregularly irregular, No diastolic murmur Respiratory: no respiratory distress, no rales or rhonchi, clear to auscultation Gastrointestinal: soft, non-tender abdomen, no palpable masses Musculoskeletal: other (pain over head of R radius; pain with flexion and extension of R elbow) ICD10 Worksheet Patient Problems: Problems Problem Status Onset Bradycardia Acute Fatigue Acute Near syncope Acute Dehydration Acute Hyperglycemia Acute
[2018-03-24] MEDS: ACETAMINOPHEN 650 MG/20.3 ML UDCUP PO PRN (08:44)
[2018-03-24] MEDS ORDERED: hydrALAZINE 10 MG TAB PO SCH (08:44)
[2018-03-24] MEDS: LISINOPRIL 2.5 MG TAB PO SCH (09:38)
[2018-03-24] MEDS: ASPIRIN 81 MG CHEWABLE TAB PO SCH (09:39)
[2018-03-24] MEDS: DEXAMETHASONE 2 MG TAB PO SCH ×2 (09:39→22:09)
[2018-03-24] MEDS: INSULIN LISPRO 100 UNIT/ML SC SCH ×3 (09:39→18:48)
[2018-03-24] MEDS: metFORMIN HCL 500 MG TAB PO SCH ×2 (09:39→18:48)
[2018-03-24] MEDS: ENOXAPARIN 40 MG/0.4 ML SYR SC SCH (09:40)
[2018-03-24] MEDS ORDERED: NS 500 ML IV ONE (10:18)
--- NOTE | 2018-03-24 13:00 | PDCARPN ---
Cardiology Progress Note Chief Complaint: Ongoing right elbow pains. Assessment/Plan: Assessment: 03-24-18 Patient doing fair, but there are some concerns about the patient's lethargy. Right arm/elbow pains continue to be noted. Hospitalist with plans to tap the elbow today. X-ray of the elbow without evidence for fracture. Cardiology with concerns about the affect of the patient - there is lethargy, and not a clear etiology for the patient's disposition. Family was at bedside today, and stated that the patient was up in a chair earlier today without complaints voiced. Ongoing steroids for the cord compression/swelling that had been noted. 03-23-18 Patient doing fair today. No cardiovascular complaints, but ongoing complaints of neck, back, and right arm pains (rather severe). Paperwork from [facility] was obtained, and imaging studies were reviewed. There was NOT a CVA noted (CT/MRI) , but there was severe cervical stenosis noted with cord swelling/compression noted. Neuro and neurosurgery input was provided. Etiology of the fall was not clearly noted. Bradycardia has been noted for several years. In 2010, there was discussion about pacemaker implantation, but bradycardia was not severe, and chronotropic competence was noted on stress testing (at that time). On telemetry at present, the patient is maintaining heart rates of 50-60 bpm. No overt symptoms are noted with this rate. 03-22-18 Patient is an 87 y/o male with history of HTN, DM (not currently on therapy), but no CAD or HLP, who presents to [facility] with complaints of weakness and lower extremity swelling. Patient is Cuban speaking only, but with help of family ( initially) and formal translators, discussion about symptoms and plans was undertaken. In the room today, the patient stated that he was not feeling well secondary to the bed (not comfortable), as well as neck and head pains (from the fall about one week ago). At that time, the patient was taken to [facility], and work up for the fall ensued. No discussion, according to patient or family, about PPM need. About one year ago, bradycardia was noted, and recommendations were for a pacemaker at that time. The patient refused for reasons that are not clear. Outside of last week, there has been no syncope or lightheadedness noted. All the malaise that is currently noted has only been since the fall. 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 Blood pressure is noted to be hypertensive (>180 mm Hg systolic) with uncertainty on the length of time this has been noted. No stress testing has been performed with notable CV risk factors (HTN, male, age >50, DM (untreated)). No fevers or chills. No PND or orthopnea. Neck, head and chest discomfort is noted (? query fall). Plan: (1) We will continue to monitor heart rates on telemetry - would like to see the patient ambulate and follow heart rates with that activity (2) Would continue ACEi therapy - hypotension was noted with alpha/ACEi therapy earlier today (3) Continue steroid for the neuro involvement noted (4) Aggressive DM therapy is needed (5) Hospitalists with plans to tap the right elbow today Subjective: No cardiovascular complaints Reviewed/Discussed With: family, hospitalist Objective: Vital Signs (8 Hrs) Temp Pulse Resp BP Pulse Ox 03/24/18 11:45 36.7 C 44 L 18 92/40 L 93 03/24/18 11:10 96/43 L 03/24/18 10:09 71/39 L 03/24/18 08:00 36.7 C 50 L 20 101/47 L 93 Intake/Output (24 Hrs) 03/23/18 03/24/18 03/25/18 05:59 05:59 05:59 Intake Total 650 500 50 Output Total 1650 520 30 Balance -1000 -20 20 Intake: Oral (ml) 650 500 50 Output: Urine (ml) 1650 520 30 Catheter 1650 520 30 Result Diagrams: 03/22/18 04:01 03/24/18 03:58 Telemetry: sinus bradycardia - Physical Exam Constitutional: no apparent distress Eyes: PERRL Ears, Nose, Mouth, Throat: moist mucous membranes Cardiovascular: regular rate and rhythm, pulses symmetric bilat, No jugular vein distention Peripheral Pulses: 2+: dorsalis-pedis (R), dorsalis-pedis (L) Respiratory: clear to auscultate bilat, no crackles Skin: no edema Musculoskeletal: muscular tenderness Neurologic: paresis Psychiatric: interactive, following commands ICD10 Worksheet Patient Problems: Problems Problem Status Onset Bradycardia Acute Fatigue Acute Near syncope Acute Dehydration Acute Hyperglycemia Acute
[2018-03-24] MEDS ORDERED: NS 1,000 ML IV SCH (13:30)
[2018-03-24] MEDS ORDERED: LIDOCAINE 1% 300 MG/30 ML SDV ONE (14:23)
[2018-03-24] MEDS ORDERED: LACTULOSE 20 GM/30 ML UDCUP PO PRN (14:32)
[2018-03-24] MEDS ORDERED: MAGNESIUM HYDROXIDE 30 ML UDCUP PO PRN (14:32)
[2018-03-24] MEDS ORDERED: POLYETHYLENE GLYCOL 3350 17 GM PKT PO PRN (14:32)
[2018-03-24] MEDS ORDERED: BISACODYL 10 MG SUPP PR PRN (14:32)
[2018-03-24] MEDS ORDERED: NS 1,000 ML IV ONE (20:41)
[2018-03-24 20:52] LABS: PLATELET COUNT 157 10^3/uL (150-400)
[2018-03-24] MEDS ORDERED: VANCOMYCIN 750 MG in D5W 150 ML IV SCH (21:30)
[2018-03-24] MEDS: GABAPENTIN 250 MG/5 ML 30 ML BOTTLE PO SCH (22:09)
--- NOTE | 2018-03-24 22:45 | PDCONSULT ---
Bolter Helper Note: Please see my dictated consult note for full details. I spoke w/ Dr. Oneill regarding the pt this evening. His xrays were reviewed. Images show a fairly arthritic elbow with an effusion. Mr. Castaneda was examined this evening. He did not have any pain with passive flexion/extension or rotation of the elbow, apart from the end range of flexion, which may be 2/2 OA. Pain at the mid-arc of motion would be more consistent with a septic joint. In addition, he is able to actively flex/extend the elbow without any pain at the mid-arc. His exam this evening does not suggest a septic joint, however this may be complicated by the cord compression as well as the steroids he is receiving. Will plan on reviewing the aspirate tmrw for signs of crystals. If crystals negative will re-examine the patient to make a decision on operative treatment of the elbow. If he is improving on IV Vanco it may be reasonable to follow the cultures and his clinical exam as he presents a high surgical risk. His nurse present this evening notes that the arm is improved in appearance from 2d prior. Cell counts of >50k are usually due to infectious etiology. His cell count may be 2/2 gout or pseudogout, though infection is certainly possible. Reactive inflammatory effusion is on differential, however it is usually <33k.
[2018-03-25] MEDS: oxyCODONE IR 5 MG TAB PO PRN (01:13)
[2018-03-25] MEDS: NS 1,000 ML IV SCH ×2 (06:15→22:17)
[2018-03-25] MEDS: ASPIRIN 81 MG CHEWABLE TAB PO SCH (09:36)
[2018-03-25] MEDS: metFORMIN HCL 500 MG TAB PO SCH (09:36)
[2018-03-25] MEDS: INSULIN LISPRO 100 UNIT/ML SC SCH ×3 (09:36→17:38)
[2018-03-25] MEDS: DEXAMETHASONE 2 MG TAB PO SCH ×2 (09:37→22:17)
[2018-03-25] MEDS: LISINOPRIL 2.5 MG TAB PO SCH (09:37)
--- NOTE | 2018-03-25 11:57 | PDCARPN ---
Cardiology Progress Note Chief Complaint: Patient doing well today. Right arm/elbow pains are doing better (to the point that no symptoms are noted today) Assessment/Plan: Assessment: 03-25-18 No cardiovascular complaints today. Right elbow was tapped last night with elevated WBC noted. Further analysis today with findings more concerning for pseudogout. Patient up in chair, and without complaint of right arm/elbow discomfort/pains today. Arm strength is also improved, and some degree of movement is now being noted. Blood cultures are pending today. Family continues to be at bedside. Heart rates on telemetry overnight were without appreciable pauses noted (up to 3.2 second pauses were noted yesterday afternoon ). Heart rates this morning while talking to the patient while up in chair were 38-39 bpm. Staff noted that with minimal ambulation, there was an increase in heart rates noted. 03-24-18 Patient doing fair, but there are some concerns about the patient's lethargy. Right arm/elbow pains continue to be noted. Hospitalist with plans to tap the elbow today. X-ray of the elbow without evidence for fracture. Cardiology with concerns about the affect of the patient - there is lethargy, and not a clear etiology for the patient's disposition. Family was at bedside today, and stated that the patient was up in a chair earlier today without complaints voiced. Ongoing steroids for the cord compression/swelling that had been noted. 03-23-18 Patient doing fair today. No cardiovascular complaints, but ongoing complaints of neck, back, and right arm pains (rather severe). Paperwork from [facility] was obtained, and imaging studies were reviewed. There was NOT a CVA noted (CT/MRI) , but there was severe cervical stenosis noted with cord swelling/compression noted. Neuro and neurosurgery input was provided. Etiology of the fall was not clearly noted. Bradycardia has been noted for several years. In 2010, there was discussion about pacemaker implantation, but bradycardia was not severe, and chronotropic competence was noted on stress testing (at that time). On telemetry at present, the patient is maintaining heart rates of 50-60 bpm. No overt symptoms are noted with this rate. 03-22-18 Patient is an 87 y/o male with history of HTN, DM (not currently on therapy), but no CAD or HLP, who presents to [facility] with complaints of weakness and lower extremity swelling. Patient is Mosotho speaking only, but with help of family ( initially) and formal translators, discussion about symptoms and plans was undertaken. In the room today, the patient stated that he was not feeling well secondary to the bed (not comfortable), as well as neck and head pains (from the fall about one week ago). At that time, the patient was taken to [facility], and work up for the fall ensued. No discussion, according to patient or family, about PPM need. About one year ago, bradycardia was noted, and recommendations were for a pacemaker at that time. The patient refused for reasons that are not clear. Outside of last week, there has been no syncope or lightheadedness noted. All the malaise that is currently noted has only been since the fall. 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 Blood pressure is noted to be hypertensive (>180 mm Hg systolic) with uncertainty on the length of time this has been noted. No stress testing has been performed with notable CV risk factors (HTN, male, age >50, DM (untreated)). No fevers or chills. No PND or orthopnea. Neck, head and chest discomfort is noted (? query fall). Plan: (1) Advance diet today (2) Await blood cultures (48 hours) (3) Would continue steroid therapy and aggressive PT/OT therapy - ambulation in the halls today (if possible) (4) Aggressive DM therapy should continue (5) Continue ACEi therapy (better blood pressure controls are noted today) (6) Plans toward PPM implant tomorrow Subjective: No cardiovascular complaints Reviewed/Discussed With: family, hospitalist Objective: Vital Signs (8 Hrs) Temp Pulse Resp BP Pulse Ox 03/25/18 08:00 36.6 C 44 L 24 H 128/54 H 97 03/25/18 04:00 36.4 C 45 L 16 117/53 L 94 Intake/Output (24 Hrs) 03/24/18 03/25/18 03/26/18 05:59 05:59 05:59 Intake Total 500 2950 Output Total 520 530 Balance -20 2420 Intake: Oral (ml) 500 400 IV Infused (ml) 2550 Ns 1,000 ml @ 3000 mls/hr 1000 IV ONCE ONE Rx#: [id number] Ns 1,000 ml @ 75 mls/hr 1050 IV CONT CHACORTA Rx#: [id number] Ns 500 ml @ 1500 mls/hr 500 IV ONCE ONE Rx#: [id number] Output: Urine (ml) 520 530 Catheter 520 530 Other: Intake Quantity No Sufficient Number of Stools Bedside Commode 1 Result Diagrams: 03/24/18 20:46 03/25/18 03:56 Telemetry: sinus rhythm/sinus bradycardia - Physical Exam Constitutional: WDWN, healthy appearing, no apparent distress Eyes: PERRL, EOMI Ears, Nose, Mouth, Throat: moist mucous membranes Cardiovascular: regular rate and rhythm, pulses symmetric bilat, No jugular vein distention Peripheral Pulses: 2+: dorsalis-pedis (R), dorsalis-pedis (L) Respiratory: clear to auscultate bilat, no crackles Gastrointestinal: normoactive bowel sounds Skin: no edema Musculoskeletal: no muscular tenderness Neurologic: AAOx3, CN II-XII grossly intact Psychiatric: cooperative, interactive, following commands ICD10 Worksheet Patient Problems: Problems Problem Status Onset Bradycardia Acute Fatigue Acute Near syncope Acute Dehydration Acute Hyperglycemia Acute
--- NOTE | 2018-03-25 12:24 | HOSPPROG ---
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 (no CVA on MRI) - seen last week at [facility]; Dr Valero recommended 2 weeks trial of steroids, then consider surgery - cont gabapentin 300 HS and decadron 2 bid - cont oxy IR - will need SNF/inpatient rehab # R elbow pseudogout - will still watch cultures but doubt septic arthritis at this point - vanc stopped - cont decadron - will not start NSAIDs or colchicine at this point given clinical improvement - consider intraarticular injection - appreciate Dr Mccabe's assistance # sinus bradycardia - 3.2s pause yesterday - plan ppm tomorrow # hypotension - resolved with IVF # hypertensive urgency - resolved; hold anti-hypertensives with hypotension # DM2 - a1c 9.1% - hold metformin - cont lispro SSI # urinary retention - mc placed at [facility]; voiding trial possible tomorrow Subjective: elbow pain much better today; moving R arm better than before Objective: Vital Signs Temp Pulse Resp BP Pulse Ox 36.6 C 44 L 24 H 128/54 H 97 03/25/18 08:00 03/25/18 08:00 03/25/18 08:00 03/25/18 08:00 03/25/18 08:00 Microbiology 03/24/18 15:30 Gram Stain - Final Synovial Fluid - Aspirate Laboratory Results 03/24/18 20:46 03/25/18 03:56 03/24/18 03/25/18 03/26/18 05:59 05:59 05:59 Intake Total 500 2950 Output Total 520 530 Balance -20 2420 PT 14.1 SEC (12.0-15.0) 03/21/18 19:16 INR 1.07 (0.83-1.16) 03/21/18 19:16 high risk discussed with Richard Mccabe and Zainab - Physical Exam Constitutional: no apparent distress, other (sitting in chair) Cardiovascular: regular rate and rhythym, no murmur, rub, or gallop Respiratory: no respiratory distress, no rales or rhonchi, clear to auscultation Gastrointestinal: soft, non-tender abdomen, no palpable masses, No guarding, No rebound, No distension Neurologic: other (moving R arm; ROM improved today) ICD10 Worksheet Patient Problems: Problems Problem Status Onset Bradycardia Acute Hyperglycemia Acute Dehydration Acute Near syncope Acute Fatigue Acute
[2018-03-25] MEDS: ENOXAPARIN 40 MG/0.4 ML SYR SC SCH (13:52)
--- NOTE | 2018-03-25 15:13 | ASMTCMCOM ---
CM Note CM Note Notes: 03/25/2018 Case Management Note Met w/pt,, grandson, son and multiple family members with siding installer to discuss d/c plan. We discussed several options. Option 1: Inpatient rehab. [facility] is following the case. Per [facility] inpatient rehab may not be a good fit d/t required 3 hours of PT per day. Pt does not appear able to participate in 3 hours a day of PT at this time. [facility] will continue to follow along, but has not accepted the patient. Option 2: SNF rehab. Pt has Medicaid and will require a ULTC 100 application and a minimum 30 day stay. No therapies are covered. Family declined this option. Option 3: ULTC 100 to initiate home community based services (HCBS). Application can be started here at [facility] but services will take 60 - 90 days to start. Services are for unskilled care only. Option 4: Home Care. Family members will remain with the pt 24 hours a day. This seems the most likely option at this time. Discussed benefits of palliative care. Pt insurance will require case management to apply to [facility] agencies to seek [facility] pallative care. Referred pt to [facility]: [facility] for further supports after d/c. Pt son requested time for the family to discuss. Case management and siding installer to meet with family at 9 am tomorrow. Case Management d/c poc: to be determined. Case Management to follow. Date Signed: 03/25/2018 03:12 PM Electronically Signed By:Sonal Washington RN
--- NOTE | 2018-03-25 21:36 | SOAPPROG ---
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 Mccabe if any issues arise or clinical course worsens 03/25/18 21:33 Subjective: I am accompanied by his RN, who assists with translation. The patient's elbow feels better Objective: Vital Signs Temp Pulse Resp BP Pulse Ox 36.2 C 49 L 16 129/52 H 96 03/25/18 20:00 03/25/18 20:00 03/25/18 20:00 03/25/18 20:00 03/25/18 20:00 Microbiology 03/24/18 15:30 Gram Stain - Final Synovial Fluid - Aspirate Laboratory Results 03/24/18 20:46 03/25/18 03:56 03/24/18 03/25/18 03/26/18 05:59 05:59 05:59 Intake Total 500 2950 995 Output Total 520 530 450 Balance -20 2420 545 PT 14.1 SEC (12.0-15.0) 03/21/18 19:16 INR 1.07 (0.83-1.16) 03/21/18 19:16 R elbow -mild diffuse edema about the elbow -minimal erythema -no pain w/ PROM except at extremes -improved AROM today w/ minimal pain ICD10 Worksheet Patient Problems: Problems Problem Status Onset Bradycardia Acute Fatigue Acute Near syncope Acute Dehydration Acute Hyperglycemia Acute
[2018-03-25] MEDS: GABAPENTIN 250 MG/5 ML 30 ML BOTTLE PO SCH (22:17)
[2018-03-26 08:20] LABS: PLATELET COUNT 172 10^3/uL (150-400)
[2018-03-26] MEDS: LISINOPRIL 2.5 MG TAB PO SCH (08:56)
[2018-03-26] MEDS: ASPIRIN 81 MG CHEWABLE TAB PO SCH (08:58)
[2018-03-26] MEDS: ENOXAPARIN 40 MG/0.4 ML SYR SC SCH (09:02)
--- NOTE | 2018-03-26 09:37 | HOSPPROG ---
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 (no CVA on MRI) - part of his weakness waws apparently from elbow pain (pseudogout) - strength is slowly improving - seen last week at [facility]; Dr Valero recommended 2 weeks trial of steroids ( only started here), then consider surgery - cont gabapentin 300 HS, decadron 2 bid and cont oxy IR - will need SNF/inpatient rehab - placement will be challenging with medicaid # R elbow pseudogout - better after aspiration - cont decadron - will not start NSAIDs or colchicine at this point given clinical improvement - consider intraarticular injection, appreciate Dr Mccabe's assistance # hypotension - resolved with IVF # hypertensive urgency - resolved; hold anti-hypertensives with hypotension # DM2 - a1c 9.1% - hold metformin - cont lispro SSI # urinary retention - mc placed at [facility]; will try voiding trial after ppm - flomax # dvt ppx - lovenox tomorrow Subjective: moving his arm better; elbow pain better Objective: Vital Signs Temp Pulse Resp BP Pulse Ox 36.3 C 39 L 18 157/60 H 97 03/26/18 07:33 03/26/18 07:33 03/26/18 07:33 03/26/18 07:33 03/26/18 07:33 Microbiology 03/24/18 15:30 Gram Stain - Final Synovial Fluid - Aspirate Laboratory Results 03/26/18 08:05 03/26/18 08:05 03/25/18 03/26/18 03/27/18 05:59 05:59 05:59 Intake Total 2950 1845 Output Total 530 900 Balance 2420 945 PT 14.1 SEC (12.0-15.0) 03/21/18 19:16 INR 1.07 (0.83-1.16) 03/21/18 19:16 high risk needing ppm - Physical Exam Constitutional: no apparent distress, appears nourished Cardiovascular: no murmur, rub, or gallop, bradycardia Respiratory: no respiratory distress, no rales or rhonchi, clear to auscultation Gastrointestinal: soft, non-tender abdomen, no palpable masses, No guarding, No rebound, No distension Musculoskeletal: other (bilat weakness in arms, R>L; R elbow pain with full flexion and extension) ICD10 Worksheet Patient Problems: Problems Problem Status Onset Bradycardia Acute Hyperglycemia Acute Dehydration Acute Near syncope Acute Fatigue Acute
[2018-03-26] MEDS: DEXAMETHASONE 2 MG TAB PO SCH ×2 (09:50→22:02)
--- NOTE | 2018-03-26 09:56 | PDCARPN ---
Cardiology Progress Note Chief Complaint: Patient doing fair today. Ongoing bradycardia on telemetry Assessment/Plan: Assessment: 03-26-18 No cardiovascular complaints today. Patient with fair sleep last night. Minimal right arm pains noted. Ongoing bradycardia (to upper 30's) noted on telemetry today. Blood cultures with no growth to date (pseudogout as diagnosis to the right elbow). Family was at bedside. Progress toward PPM implant today. 03-25-18 No cardiovascular complaints today. Right elbow was tapped last night with elevated WBC noted. Further analysis today with findings more concerning for pseudogout. Patient up in chair, and without complaint of right arm/elbow discomfort/pains today. Arm strength is also improved, and some degree of movement is now being noted. Blood cultures are pending today. Family continues to be at bedside. Heart rates on telemetry overnight were without appreciable pauses noted (up to 3.2 second pauses were noted yesterday afternoon ). Heart rates this morning while talking to the patient while up in chair were 38-39 bpm. Staff noted that with minimal ambulation, there was an increase in heart rates noted. 03-24-18 Patient doing fair, but there are some concerns about the patient's lethargy. Right arm/elbow pains continue to be noted. Hospitalist with plans to tap the elbow today. X-ray of the elbow without evidence for fracture. Cardiology with concerns about the affect of the patient - there is lethargy, and not a clear etiology for the patient's disposition. Family was at bedside today, and stated that the patient was up in a chair earlier today without complaints voiced. Ongoing steroids for the cord compression/swelling that had been noted. 03-23-18 Patient doing fair today. No cardiovascular complaints, but ongoing complaints of neck, back, and right arm pains (rather severe). Paperwork from [facility] was obtained, and imaging studies were reviewed. There was NOT a CVA noted (CT/MRI) , but there was severe cervical stenosis noted with cord swelling/compression noted. Neuro and neurosurgery input was provided. Etiology of the fall was not clearly noted. Bradycardia has been noted for several years. In 2010, there was discussion about pacemaker implantation, but bradycardia was not severe, and chronotropic competence was noted on stress testing (at that time). On telemetry at present, the patient is maintaining heart rates of 50-60 bpm. No overt symptoms are noted with this rate. 03-22-18 Patient is an 87 y/o male with history of HTN, DM (not currently on therapy), but no CAD or HLP, who presents to [facility] with complaints of weakness and lower extremity swelling. Patient is Nigerien speaking only, but with help of family ( initially) and formal translators, discussion about symptoms and plans was undertaken. In the room today, the patient stated that he was not feeling well secondary to the bed (not comfortable), as well as neck and head pains (from the fall about one week ago). At that time, the patient was taken to [facility], and work up for the fall ensued. No discussion, according to patient or family, about PPM need. About one year ago, bradycardia was noted, and recommendations were for a pacemaker at that time. The patient refused for reasons that are not clear. Outside of last week, there has been no syncope or lightheadedness noted. All the malaise that is currently noted has only been since the fall. 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 Blood pressure is noted to be hypertensive (>180 mm Hg systolic) with uncertainty on the length of time this has been noted. No stress testing has been performed with notable CV risk factors (HTN, male, age >50, DM (untreated)). No fevers or chills. No PND or orthopnea. Neck, head and chest discomfort is noted (? query fall). Plan: (1) PPM today (2) Continue steroids for cordal swelling/elbow inflammation (3) Continue ACEi therapy for HTN (much better control has been noted with this therapy) (4) Further recommendations post PPM implant Subjective: No cardiovascular complaints today. Reviewed/Discussed With: family, hospitalist Objective: Vital Signs (8 Hrs) Temp Pulse Resp BP Pulse Ox 03/26/18 07:33 36.3 C 39 L 18 157/60 H 97 03/26/18 04:00 36.3 C 42 L 16 146/63 H 96 Intake/Output (24 Hrs) 03/25/18 03/26/18 03/27/18 05:59 05:59 05:59 Intake Total 2950 1845 Output Total 530 900 Balance 2420 945 Intake: Oral (ml) 400 350 IV Intake (ml) 645 IV Infused (ml) 2550 850 Ns 1,000 ml @ 3000 mls/hr 1000 IV ONCE ONE Rx#: [id number] Ns 1,000 ml @ 75 mls/hr 1050 IV CONT CHACORTA Rx#: [id number] Ns 1,000 ml @ 75 mls/hr 850 IV CONT CHACORTA Rx#: [id number] Ns 500 ml @ 1500 mls/hr 500 IV ONCE ONE Rx#: [id number] Output: Urine (ml) 530 900 Catheter 530 900 Other: Intake Quantity No Sufficient Number of Stools Bedside Commode 1 Result Diagrams: 03/26/18 08:05 03/26/18 08:05 Telemetry: sinus bradycardia - Physical Exam Constitutional: WDWN, healthy appearing, no apparent distress Eyes: PERRL, EOMI Ears, Nose, Mouth, Throat: moist mucous membranes Cardiovascular: regular rate and rhythm (bradycardia), pulses symmetric bilat, No jugular vein distention Peripheral Pulses: 2+: dorsalis-pedis (R), dorsalis-pedis (L) Respiratory: clear to auscultate bilat Gastrointestinal: normoactive bowel sounds Skin: no edema Musculoskeletal: no joint effusions Neurologic: AAOx3, CN II-XII grossly intact Psychiatric: cooperative, interactive, following commands ICD10 Worksheet Patient Problems: Problems Problem Status Onset Bradycardia Acute Fatigue Acute Near syncope Acute Dehydration Acute Hyperglycemia Acute
[2018-03-26] MEDS ORDERED: NS 1,000 ML IV ONE (10:05)
[2018-03-26] MEDS ORDERED: BACITRACIN IRRIGATION/NS 50,000 UNITS/1,000 ML BTL IRR ONE (10:05)
[2018-03-26] MEDS ORDERED: ceFAZolin 2 GM/DEXTROSE 100 ML IV ONE (10:05)
--- NOTE | 2018-03-26 10:05 | PDPROPOC ---
Sedation Plan of Care Sedation Plan of Care: vital signs stable, mental status noted, patient educated of risks, benefits, alternatives, patient can tolerate sedation ASA Classification: ASA 2 Planned drugs: fentanyl, midazolam Mallampati Score: Class 1 Mallampati Reference Image: Patient passed 3-3-2 rule?: Yes
[2018-03-26] MEDS: INSULIN LISPRO 100 UNIT/ML SC SCH ×3 (10:46→18:23)
[2018-03-26] MEDS: TAMSULOSIN HCL 0.4 MG CAP PO SCH (10:56)
[2018-03-26] MEDS ORDERED: MIDAZOLAM 2 MG/2 ML VIAL ONE (12:50)
[2018-03-26] MEDS ORDERED: fentaNYL 100 MCG/2 ML INJ ONE (12:50)
[2018-03-26] MEDS ORDERED: IOPAMIDOL (ISOVUE-300) 50 ML VIAL ONE (12:50)
[2018-03-26] MEDS ORDERED: LIDOCAINE 1% 300 MG/30 ML SDV ONE (12:50)
[2018-03-26] MEDS ORDERED: BUPIVACAINE 0.5% 30 ML SDV ONE (12:51)
[2018-03-26] MEDS ORDERED: LIDO/EPI 1% **for epidural** 30 ML SDV ONE (12:51)
--- NOTE | 2018-03-26 16:07 | CPEKG ---
Heart Rate: 60 RR Interval: 1000 P-R Interval: 179 QRSD Interval: 86 QT Interval: 440 QTC Interval: 440 QRS [place]: -24 T Wave [place]: 45 EKG Severity - ABNORMAL ECG - EKG Impression: ATRIAL-PACED RHYTHM EKG Impression: BORDERLINE LEFT AXIS DEVIATION EKG Impression: NONSPECIFIC ST_T WAVE ABNORMAILITES Electronically Signed By: Jack Hubbard 27-Mar-2018 12:12:38
--- NOTE | 2018-03-26 16:36 | ASMTCMCOM ---
CM Note CM Note Notes: 03/26/2018 Case Management Note Pt had pacer placed today. Met w/family members multiple times today with mapping editor. Family decided that home care was a benefit. Faxed referral to [facility] via all scripts. Familiy in agreement with benefits of palliative care. Faxed referral to [facility]. Case Management d/c poc: [facility] PT with palliative to follow pending acceptance. Case Management to follow. Date Signed: 03/26/2018 04:36 PM Electronically Signed By:Sonal Washington RN
--- NOTE | 2018-03-26 16:53 | SUROPNOTE ---
[facility] Operative Report - Surgery PROCEDURE: (1) venogram to isolate the left subclavian vein (2) PPM implant INDICATION: (1) Symptomatic bradycardia PROCEDURE DETAILS: After consents were obtained, the patient was taken to the cardiac organic lab worker. Prep and drape in the usual sterile fashion. A venogram was performed to isolate the left subclavian vein. Lidocaine was used in the left subclavian region. A single stick was performed without difficulty, and a wire was advanced into the subclavian vein. A second stick was unsuccessful with recannulation of the subclavian vein, and concerns of pneumothorax were elevated. The initial wire was used for access. A pocket was created with #10 blade and bovie. The single wire was pulled into the pocket. A sheath was placed and a second wire was placed, the sheath was removed, leaving two wires from single stick. A ray tech soaked in bacitracin was placed into the pocket. The ventricular lead was placed first. RV M#: [id number] S#[id number] RV capture at 0.4 V @ 0.5 ms, 0.6 mA with sensing at 7.7 mV, 2.8 V/s and 581 Ohms. This lead was sutured into position. The atrial lead was placed secondly, RA M#: [id number] RA capture at 1.7 V @ 1.0 ms 3.0 mA with sensing at 1.0 mV, 0.2 V/s and impedance at 470 ohms. This lead was sutured into position. The ray tech was explanted, and the pocket was inspected for haemostasis. The leads were then connected to the generator, and the generator was sutured into position. Generator M#: [id number] S#: [id number] The pocket was closed with 2-0, 3-0, and 4-0. No complications were appreciated, but concerns about pneumothorax given the unsuccessful access with second independent stick. CXR (portable) was performed as this was being written, and a small pneumo was noted to the posterolateral wall I spoke with IR, and they recommended a repeat CXR in 1.5 hours, which has been ordered.
[2018-03-26] MEDS ORDERED: fentaNYL 100 MCG/2 ML INJ IVP PRN (19:05)
[2018-03-26] MEDS ORDERED: NALOXONE HCL 0.4 MG/ML INJ IVP PRN (19:05)
[2018-03-26] MEDS ORDERED: NS 1,000 ML IV SCH (19:15)
--- NOTE | 2018-03-26 19:58 | PDRADPRE ---
Radiology History & Physical Indication for procedure: other (pneumothorax) Home medications: NK [No Known Home Meds] 03/21/18 [Last Taken Unknown] Allergies/Adverse Reactions: No Known Allergies Allergy (Unverified 09/16/16 20:10) Heart exam: regular rate and rhythm Mallampati Score: Class 2
--- NOTE | 2018-03-26 20:57 | PDRADPN ---
Radiology Procedure Note Date of Procedure: 03/26/18 Radiologist: Marco Antonio Spain Anesthesia: IV Sedation Pre-op Diagnosis: Ptx Post-op Diagnosis: Same Procedure: CT guided chest tube placement Inf/Abcess present in the surg proc area at time of surgery?: No EBL: Minimal
[2018-03-26] MEDS: ACETAMINOPHEN 650 MG/20.3 ML UDCUP PO PRN (22:02)
[2018-03-26] MEDS: GABAPENTIN 250 MG/5 ML 30 ML BOTTLE PO SCH (22:02)
[2018-03-26] MEDS: INSULIN GLARGINE 100 UNITS/ML UNIT SC SCH (22:02)
[2018-03-27 04:16] LABS: PLATELET COUNT 179 10^3/uL (150-400)
--- NOTE | 2018-03-27 08:53 | CPEKG ---
Heart Rate: 64 RR Interval: 938 P-R Interval: 149 QRSD Interval: 84 QT Interval: 408 QTC Interval: 421 QRS [place]: -28 T Wave [place]: 37 EKG Severity - ABNORMAL ECG - EKG Impression: ATRIAL-PACED RHYTHM EKG Impression: BORDERLINE LEFT AXIS DEVIATION EKG Impression: BORDERLINE T ABNORMALITIES, ANTERIOR LEADS Electronically Signed By: Jack Hubbard 27-Mar-2018 12:11:41
[2018-03-27] MEDS: INSULIN LISPRO 100 UNIT/ML SC SCH ×3 (09:05→18:30)
[2018-03-27] MEDS: ASPIRIN 81 MG CHEWABLE TAB PO SCH (09:08)
[2018-03-27] MEDS: DEXAMETHASONE 2 MG TAB PO SCH ×2 (09:09→22:27)
[2018-03-27] MEDS: TAMSULOSIN HCL 0.4 MG CAP PO SCH (09:09)
[2018-03-27] MEDS: LISINOPRIL 5 MG TAB PO SCH (09:35)
[2018-03-27] MEDS: ENOXAPARIN 40 MG/0.4 ML SYR SC SCH (10:15)
--- NOTE | 2018-03-27 11:16 | PDCARPN ---
Cardiology Progress Note Chief Complaint: Patient was doing well this morning. Pacer site was without swelling. Assessment/Plan: Assessment: 03-27-18 Pacer was implanted yesterday, and a small pneumothorax was appreciated with was noted to enlarge with follow up CXR. IR placed a chest tube last night. Patient was awake and alert this morning. Family felt that the patient's affect was improved this morning compared to yesterday. No chest pains or pressure. Pacer parameters this morning were excellent. 03-26-18 No cardiovascular complaints today. Patient with fair sleep last night. Minimal right arm pains noted. Ongoing bradycardia (to upper 30's) noted on telemetry today. Blood cultures with no growth to date (pseudogout as diagnosis to the right elbow). Family was at bedside. Progress toward PPM implant today. 03-25-18 No cardiovascular complaints today. Right elbow was tapped last night with elevated WBC noted. Further analysis today with findings more concerning for pseudogout. Patient up in chair, and without complaint of right arm/elbow discomfort/pains today. Arm strength is also improved, and some degree of movement is now being noted. Blood cultures are pending today. Family continues to be at bedside. Heart rates on telemetry overnight were without appreciable pauses noted (up to 3.2 second pauses were noted yesterday afternoon ). Heart rates this morning while talking to the patient while up in chair were 38-39 bpm. Staff noted that with minimal ambulation, there was an increase in heart rates noted. 03-24-18 Patient doing fair, but there are some concerns about the patient's lethargy. Right arm/elbow pains continue to be noted. Hospitalist with plans to tap the elbow today. X-ray of the elbow without evidence for fracture. Cardiology with concerns about the affect of the patient - there is lethargy, and not a clear etiology for the patient's disposition. Family was at bedside today, and stated that the patient was up in a chair earlier today without complaints voiced. Ongoing steroids for the cord compression/swelling that had been noted. 03-23-18 Patient doing fair today. No cardiovascular complaints, but ongoing complaints of neck, back, and right arm pains (rather severe). Paperwork from [facility] was obtained, and imaging studies were reviewed. There was NOT a CVA noted (CT/MRI) , but there was severe cervical stenosis noted with cord swelling/compression noted. Neuro and neurosurgery input was provided. Etiology of the fall was not clearly noted. Bradycardia has been noted for several years. In 2010, there was discussion about pacemaker implantation, but bradycardia was not severe, and chronotropic competence was noted on stress testing (at that time). On telemetry at present, the patient is maintaining heart rates of 50-60 bpm. No overt symptoms are noted with this rate. 03-22-18 Patient is an 87 y/o male with history of HTN, DM (not currently on therapy), but no CAD or HLP, who presents to [facility] with complaints of weakness and lower extremity swelling. Patient is Bengali speaking only, but with help of family ( initially) and formal translators, discussion about symptoms and plans was undertaken. In the room today, the patient stated that he was not feeling well secondary to the bed (not comfortable), as well as neck and head pains (from the fall about one week ago). At that time, the patient was taken to [facility], and work up for the fall ensued. No discussion, according to patient or family, about PPM need. About one year ago, bradycardia was noted, and recommendations were for a pacemaker at that time. The patient refused for reasons that are not clear. Outside of last week, there has been no syncope or lightheadedness noted. All the malaise that is currently noted has only been since the fall. 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 Blood pressure is noted to be hypertensive (>180 mm Hg systolic) with uncertainty on the length of time this has been noted. No stress testing has been performed with notable CV risk factors (HTN, male, age >50, DM (untreated)). No fevers or chills. No PND or orthopnea. Neck, head and chest discomfort is noted (? query fall). Plan: (1) Chest tube monitoring today (2) Continue steroids for cordal swelling (3) ACEi for HTN should continue (4) Outpatient follow up with cardiology Subjective: No cardiovascular complaints. Fair sleep overnight (with newly paced chest tube ) Reviewed/Discussed With: family, hospitalist Objective: Vital Signs (8 Hrs) Pulse Resp BP Pulse Ox 03/27/18 07:11 63 15 119/74 95 03/27/18 04:08 63 18 125/73 H 94 Intake/Output (24 Hrs) 03/26/18 03/27/18 03/28/18 05:59 05:59 05:59 Intake Total 1845 700 Output Total 900 850 350 Balance 945 -150 -350 Intake: Oral (ml) 350 700 IV Intake (ml) 645 IV Infused (ml) 850 Ns 1,000 ml @ 75 mls/hr 850 IV CONT CHACORTA Rx#: [id number] Output: Urine (ml) 900 850 350 Catheter 900 850 350 Other: Output Comment Catheter catheter removed Result Diagrams: 03/27/18 04:08 03/27/18 04:08 Telemetry: Atrial paced rhythm - Physical Exam Constitutional: WDWN, healthy appearing, no apparent distress Eyes: PERRL, EOMI Ears, Nose, Mouth, Throat: moist mucous membranes Cardiovascular: regular rate and rhythm, No jugular vein distention Peripheral Pulses: 2+: dorsalis-pedis (R), dorsalis-pedis (L) Respiratory: clear to auscultate bilat Gastrointestinal: normoactive bowel sounds Skin: no rashes, no edema Musculoskeletal: no muscular tenderness Neurologic: AAOx3, CN II-XII grossly intact Psychiatric: cooperative, interactive, following commands ICD10 Worksheet Patient Problems: Problems Problem Status Onset Bradycardia Acute Fatigue Acute Near syncope Acute Dehydration Acute Hyperglycemia Acute
--- NOTE | 2018-03-27 15:06 | ASMTCMCOM ---
CM Note CM Note Notes: 03/27/2018 Case Management Note Discussed pt during rounds this morning. Pt had pacer placed yesterday. Kishan d/c. Anticipating d/c tomorrow. Es Castaneda [phone] speaks yakut and lives with family. [facility] and will provide ukrainian speak staff. [facility]. Pt primary MD is Josephine Holt from [facility], notified 21/[facility]. Case Management d/c poc: 21/04 [facility] RN PT OT with [facility] to follow outpatient. Case Management to follow. Date Signed: 03/27/2018 03:06 PM Electronically Signed By:Sonal Washington RN
--- NOTE | 2018-03-27 15:27 | HOSPPROG ---
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 (no CVA on MRI) - part of his weakness was apparently from elbow pain (pseudogout) - strength is slowly improving - seen last week at [facility]; Dr Valero recommended 2 weeks trial of steroids ( only started here), then consider surgery - cont gabapentin 300 HS, decadron 2 bid and cont oxy IR - pt/ot working with him and [facility] [place] [facility] # R elbow pseudogout - better after aspiration - cont decadron - will not start NSAIDs or colchicine at this point given clinical improvement - consider intraarticular injection if worsens # hypotension - resolved with IVF # hypertensive urgency - resolved; hold anti-hypertensives with hypotension # DM2 - a1c 9.1% - hold metformin - cont lispro SSI # urinary retention - mc placed at [facility]; will try voiding trial after ppm - flomax # dvt ppx - lovenox when OK with CT surg Subjective: no significant overnight events, jt did not sleep well last night due to CT, sleepy today Objective: Vital Signs Temp Pulse Resp BP Pulse Ox 36.1 C 67 15 94/52 L 94 03/27/18 12:00 03/27/18 12:00 03/27/18 12:00 03/27/18 12:00 03/27/18 12:00 Microbiology 03/24/18 15:30 Gram Stain - Final Synovial Fluid - Aspirate Laboratory Results 03/27/18 04:08 03/27/18 04:08 03/26/18 03/27/18 03/28/18 05:59 05:59 05:59 Intake Total 1845 700 Output Total 900 850 350 Balance 945 -150 -350 PT 14.1 SEC (12.0-15.0) 03/21/18 19:16 INR 1.07 (0.83-1.16) 03/21/18 19:16 awake alert nad anicteric op clear rrr no mrg cta with dec bs at bases, CT in left soft nt nd 1+ ble edema warm dry well perfused somnolent ICD10 Worksheet Patient Problems: Problems Problem Status Onset Bradycardia Acute Fatigue Acute Near syncope Acute Dehydration Acute Hyperglycemia Acute
[2018-03-27] MEDS ORDERED: NS 1,000 ML IV ONE (17:30)
--- NOTE | 2018-03-27 20:27 | CPEKG ---
Heart Rate: 66 RR Interval: 909 P-R Interval: 212 QRSD Interval: 86 QT Interval: 452 QTC Interval: 474 P [place]: 0 QRS [place]: -30 T Wave [place]: 70 EKG Severity - ABNORMAL ECG - EKG Impression: ATRIAL-PACED COMPLEXES EKG Impression: LEFT AXIS DEVIATION EKG Impression: BORDERLINE T ABNORMALITIES, ANT-LAT LEADS Electronically Signed By: Maxi Love 28-Mar-2018 10:41:53
[2018-03-27] MEDS: INSULIN GLARGINE 100 UNITS/ML UNIT SC SCH (22:27)
[2018-03-27] MEDS: GABAPENTIN 250 MG/5 ML 30 ML BOTTLE PO SCH (22:27)
--- NOTE | 2018-03-28 10:05 | PDCARPN ---
Cardiology Progress Note Chief Complaint: SSS/syncope Assessment/Plan: Assessment: 87y/o M PMH htn and DM (untreated until this admission) p/w weakness and fatigue. Admitted week [employer] at [facility] for syncope. Noted to have cervical cord compression by imaging at [facility] and started on steroid trial by NSG. First encounter. Chart reviewed. Kimberlee provided graduate student instructor support. #. SSS/pauses: noted to have ongoing SSS and pauses in this admission s/p ppm [facility] device our office will schedule appropriate device follow up #. iatrogenic PTX with CT: CT has been removed after improved CXR showing resolution of PTX recheck now #. htn: had some hypotension yesterday and currently on no antiHTN will follow outpatient #. DM: started on insulin in this admission #. cervical cord compression: with resultant arm weakness (c/b pseudogout in elbow) Plan: - OK to d/c from cardiology if CXR is stable - Our office will call to set up outpatient follow up 03/28/18 10:05 03/28/18 10:25 Subjective: Unaware that he has had pacer insertion. Objective: Vital Signs (8 Hrs) Temp Pulse Resp BP Pulse Ox 03/28/18 07:16 97.4 F 63 20 111/58 L 92 03/28/18 04:00 97.4 F 63 17 127/64 H 94 Intake/Output (24 Hrs) 03/27/18 03/28/18 03/29/18 05:59 05:59 05:59 Intake Total 700 Output Total 850 700 Balance -150 -700 Intake: Oral (ml) 700 Output: Urine (ml) 850 700 Bedside Commode 300 Catheter 850 400 Other: Output Comment Catheter Straight cath Number of Voids Incontinence 1 1 Bladder Scan Volume (ml) Bedside Commode 354 Post Void Residual Scan Volume (ml) Bedside Commode 560 Result Diagrams: 03/27/18 04:08 03/27/18 04:08 Cardiac Labs: Cardiac Lab Results (72 Hrs) 03/27/18 20:39 Troponin I < 0.012 Telemetry: A paced V sensed - Physical Exam Constitutional: no apparent distress, cachectic Eyes: anicteric sclera Ears, Nose, Mouth, Throat: moist mucous membranes Cardiovascular: regular rate and rhythm ICD10 Worksheet Patient Problems: Problems Problem Status Onset Bradycardia Acute Fatigue Acute Near syncope Acute Dehydration Acute Hyperglycemia Acute
[2018-03-28] MEDS: INSULIN LISPRO 100 UNIT/ML SC SCH ×2 (10:28→12:48)
[2018-03-28] MEDS: ASPIRIN 81 MG CHEWABLE TAB PO SCH (10:28)
[2018-03-28] MEDS: LISINOPRIL 5 MG TAB PO SCH (10:28)
[2018-03-28] MEDS: ENOXAPARIN 40 MG/0.4 ML SYR SC SCH (10:28)
[2018-03-28] MEDS: TAMSULOSIN HCL 0.4 MG CAP PO SCH (10:28)
[2018-03-28] MEDS: DEXAMETHASONE 2 MG TAB PO SCH (10:28)
[2018-03-28 11:35] VITALS: BP 116/59
--- NOTE | 2018-03-28 11:53 | PDIAF ---
- Diagnosis Code Status: Full Code - Medication Management Discharge Medications: Medications to Continue on Transfer Acetaminophen [Tylenol 650/20.3ML Oral Liq (*)] 650 mg PO Q4HRS PRN udcup 03/28 [Last Taken Unknown] Aspirin [Aspirin 81mg (*)] 81 mg PO DAILY tab.chew 03/28/18 [Last Taken Unknown ] Dexamethasone [Decadron 0.5 mg (*)] 1 mg PO BID 9 Days 03/28/18 [Last Taken Unknown] Dexamethasone [Decadron 2 MG (*)] 2 mg PO DAILY 8 Days tab 03/28/18 [Last Taken Unknown] Gabapentin [Neurontin Oral Liquid] 300 mg PO HS #1 bottle 03/28/18 [Last Taken Unknown] Lisinopril [Zestril 5 mg (*)] 5 mg PO DAILY #30 tab 03/28/18 [Last Taken Unknown ] Polyethylene Glycol 3350 [Miralax 17 gm (*)] 17 gm PO DAILY PRN pkt 03/28/18 [ Last Taken Unknown] Tamsulosin HCl [Flomax 0.4 MG (*)] 0.4 mg PO DAILY #30 cap 03/28/18 [Last Taken Unknown] oxyCODONE IR [Oxycodone Ir (*)] 2.5 - 5 mg PO Q4HRS PRN #30 tab 03/28/18 [Last Taken Unknown] Discharge Medications: Refer to the Discharge Home Medication list for PRN reason. - Orders Services needed: Home Care, Registered Nurse, Physical Therapy, Occupational Therapy Home Care Face to Face: I certify that this patient was under my care and that I had the required [id number] encounter meeting the encounter requirements on the discharge day. My findings support the fact that the patient is homebound as defined in Home Care Face to Face Continued: CMS Chapter 7 Medicare Benefits Manual 30.1.1 , The condition of the patient is such that there exists a normal inability to leave home and consequently, leaving home would require a considerable and taxing effort. Diet Recommendation: no restrictions on diet Additional Instructions: Left arm restriction (for 2 weeks mostly) 1) no lifting greater than 10 lbs 2) no pushing or pulling 3) no lifting arm above head or putting arm behind back 4) OK to shower tomorrow but try to avoid getting pacer dressing wet 5) wear sling until tomorrow but then you can wear only at bedtime - Follow Up Care Current Providers and Referrals: Patient,NotPresent [Unknown] - As per Instructions Jack Lamb MD [Medical Doctor] - follow up in 1 week Aamir Valero MD [Medical Doctor] - follow up in 1 week
--- NOTE | 2018-03-28 11:54 | PDDCSUM ---
Discharge Summary Discharge Summary: Dates of service 03/21-03/28/18 Consultations: cardiology, orthopedics Procedures performed: PPM placement, CT placement, echocardiogram Hospital course by problem: # sinus bradycardia - had a 3.2s pause on tele - s/p PPM # iatrogenic PTX: in setting of placement of above, chest tube placed and removed. CXR performed day of discharge not showing any new ptx. 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 (no CVA on MRI) - part of his weakness was apparently from elbow pain (pseudogout) - strength is slowly improving - seen last week at [facility]; Dr Valero recommended 2 weeks trial of steroids ( only started here), then consider surgery - cont gabapentin 300 HS, decadron 2 bid with taper and cont oxy IR - pt/ot working with him and will dc with home pt/ot # R elbow pseudogout - better after aspiration - cont decadron - will not start NSAIDs or colchicine at this point given clinical improvement - consider intraarticular injection if worsens # hypotension - resolved with IVF # hypertensive urgency - resolved; hold anti-hypertensives with hypotension # DM2 - a1c 9.1% - cont lispro SSI # urinary retention - mc placed at [facility]; has been able to urinate here but incontinent - flomax continued -will need to f/u and consider repeat mc if retention occurs again DC home with home health Patient to f/u with Neurosurgery, cardiology, PCP > 35 min spent in dc of patient
--- NOTE | 2018-03-28 12:19 | ASMTLACE ---
LACE Length of stay for Answers: 7-13 days current admission Acuity / Level of Answers: Yes Care: Did the patient have an inpatient admission? Comorbidities - select Answers: Diabetes (uncontrolled or all that apply controlled) Other Notes: h/o bradycardia, prostatect beverly , glaucoma L eye # of Emergency department Answers: 1-2 visits in the last 6 months Score: 11 Date Signed: 03/28/2018 12:18 PM Electronically Signed By:Irma Grullon LCSW
--- NOTE | 2018-03-28 12:21 | ASMTCMCOM ---
CM Note CM Note Notes: Pt ready for DC today. Alerted 21/04 [facility] and [facility]. Final orders faxed. Date Signed: 03/28/2018 12:20 PM Electronically Signed By:Irma Grullon LCSW
--- NOTE | 2018-03-28 14:43 | ASDISCHSUM ---
Discharge Information Plan Status:Has needs-TBD Medically Cleared to Leave: Discharge Date:03/28/2018 02:38 PM CM D/C Disposition: ADT D/C Disposition:Home Health Service Projected Discharge Date:03/28/2018 11:00 AM Transportation at D/C: Discharge Delay Reason: Follow-Up Date:03/28/2018 11:00 AM Discharge Slot: Final Diagnosis: Placement Information Referral Type:Palliative Care Referral ID:[id number] Provider Name:[facility] Address 1:[address] Phone Number: Address 2: Fax Number: City:[place] Selection Factors: State:[place] Referral Type:*Home Health Care Services Referral ID:[id number] Provider Name:21/04 [facility] Address 1:[address] [address] Address 2: City:[place] Selection Factors: State:[place] Patient Contact Information Contact Name:TREVER Relationship: Address:[address] City:[place] Alternate Phone: [facility]/Zip Code:[place] [address] Email: Financial Information Financial Class:Medicaid Primary Plan Desc:[facility] Primary Plan Number:[id number] Secondary Plan Desc: Secondary Plan Number: Assessment Information LACE LACE Length of stay for Answers: 7-13 days current admission Acuity / Level of Answers: Yes Care: Did the patient have an inpatient admission? Comorbidities - select Answers: Diabetes (uncontrolled or all that apply controlled) Other Notes: h/o bradycardia, prostatect beverly , glaucoma L eye # of Emergency department Answers: 1-2 visits in the last 6 months Score: 11 Date Signed: 03/28/2018 12:18 PM Electronically Signed By:Irma Grullon LCSW [facility] CM Progress Note CM Note CM Note Notes: 03/22/2018 Case Management Note Discussed pt during rounds this morning. Pt admitted for symptomatic bradycardia. Plan for pacer tomorrow. Pt is cook islander speaking and has strong family supports. There are are PT and OT evals pending. Case Management d/c poc: to be determined. Case Management to follow. Date Signed: 03/22/2018 04:03 PM Electronically Signed By:Sonal Washington RN [facility] CM Progress Note CM Note CM Note Notes: Pts case discussed in morning rounds. OT is recommending inpatient rehab. PT recommendations are pending. Gema Palomareslie is following this case. Family completed [employer] paperwork today. CM to follow. Plan: TBD Date Signed: 03/23/2018 03:31 PM Electronically Signed By:HAILEE Chung [facility] CM Progress Note CM Note CM Note Notes: 03/25/2018 Case Management Note Met w/pt,, grandson, son and multiple family members with video network engineer to discuss d/c plan. We discussed several options. Option 1: Inpatient rehab. [facility] is following the case. Per [facility] inpatient rehab may not be a good fit d/t required 3 hours of PT per day. Pt does not appear able to participate in 3 hours a day of PT at this time. [facility] will continue to follow along, but has not accepted the patient. Option 2: SNF rehab. Pt has Medicaid and will require a ULTC 100 application and a minimum 30 day stay. No therapies are covered. Family declined this option. Option 3: ULTC 100 to initiate home community based services (HCBS). Application can be started here at [facility] but services will take 60 - 90 days to start. Services are for unskilled care only. Option 4: Home Care. Family members will remain with the pt 24 hours a day. This seems the most likely option at this time. Discussed benefits of palliative care. Pt insurance will require case management to apply to [employer] agencies to seek pro dusty pallative care. Referred pt to [facility]: [facility] for further supports after d/c. Pt son requested time for the family to discuss. Case management and video network engineer to meet with family at 9 am tomorrow. Case Management d/c poc: to be determined. Case Management to follow. Date Signed: 03/25/2018 03:12 PM Electronically Signed By:Sonal Washington RN [facility] CM Progress Note CM Note CM Note Notes: 03/26/2018 Case Management Note Pt had pacer placed today. Met w/family members multiple times today with video network engineer. Family decided that home care was a benefit. Faxed referral to [facility] via [email or web address]. Familiy in agreement with benefits of palliative care. Faxed referral to [facility]. Case Management d/c poc: trailer technician PT with palliative to follow pending acceptance. Case Management to follow. Date Signed: 03/26/2018 04:36 PM Electronically Signed By:Sonal Washington RN [facility] CM Progress Note CM Note CM Note Notes: 03/27/2018 Case Management Note Discussed pt during rounds this morning. Pt had pacer placed yesterday. Kishan d/c. Anticipating d/c tomorrow. Es Castaneda [phone] speaks luxembourgish and lives with family. 21/04 [facility] accepted pt to service and will provide cook islander speak staff. [facility]. Pt primary MD is Josephine Holt from [facility], notified 21/04 [facility]. Case Management d/c poc: 21/04 [facility] RN PT OT with [facility] to follow outpatient. Case Management to follow. Date Signed: 03/27/2018 03:06 PM Electronically Signed By:Sonal Washington RN [facility] CM Progress Note CM Note CM Note Notes: Pt ready for DC today. Alerted 21/04 [facility] and [facility]. Final orders faxed. Date Signed: 03/28/2018 12:20 PM Electronically Signed By:Irma Grullon LCSW Intervention Information
== END 2018-03-28 14:38 | disposition home health service (06) | DRG 171 ==
LOC: F2W 20:16
PROVIDERS: ADMIT Family Medicine; ATTEND Family Medicine
DX: I49.5 Sick sinus syndrome (principal); E11.65 Type 2 diabetes mellitus with hyperglycemia; M11.221 Other chondrocalcinosis, right elbow; J95.811 Postprocedural pneumothorax; M48.02 Spinal stenosis, cervical region; I16.0 Hypertensive urgency; R33.9 Retention of urine, unspecified; G83.21 Monoplegia of upper limb affecting right dominant side; N40.1 Benign prostatic hyperplasia with lower urinary tract symptoms; Z79.84 Long term (current) use of oral hypoglycemic drugs
CPT/HCPCS: 82435-PO; 82565-PO; 82947-PO; 84132-PO; 84295-PO; 84484-PO; 84520-PO; 85014-PO; 97116-GP; 97162-GP; 97167-GO; 97530-GO; 97530-GP; 97535-GO; C1785; C1898; J0360; J0690; J1650; J1815; J2250; J2310; J3010; J3370; Q9967

== ENCOUNTER 2018-03-30 23:06 | Inpatient (IN) | payer MEDICAID ==
--- NOTE | 2018-03-30 23:25 | EDPHY ---
H & P Stated Complaint: DIPIKA FEET SWELLING, AND DIZZINESS/D/C'D LAST WEEK Time Seen by Provider: 03/30/18 23:25 HPI/ROS: HPI CHIEF COMPLAINT: Lightheadedness. HISTORY OF PRESENT ILLNESS: 87-year-old male, multiple chronic medical issues including a recent hospitalization for bradycardia requiring a pacemaker, diabetes, urinary retention, he presents emergency room tonight by private vehicle with his daughter for generalized weakness, and increasing swelling in his legs, additionally every time he goes to stand up he gets very lightheaded. He does not have a syncopal episode. Daughter at bedside reports that he slept most of the day today. No fever. No shortness of breath no chest pain no productive cough. Main complaint generalized weakness, lightheadedness when standing up and bilateral lower extremity swelling getting worse. Past Medical History: recent hospitalization, Bradycardia requiring pacemaker, cervical cord compression, pseudogout, diabetes, urinary retention Past Surgical History: Left chest pacemaker. Social History: Denies drugs alcohol tobacco. Russian-speaking only. Daughter at bedside. Speaks Vietnamese and Russian fluently. Family History: Noncontributory ROS REVIEW OF SYSTEMS: A comprehensive 10 point review of systems is otherwise negative aside from elements mentioned in the history of present illness. Exam Constitutional frail, elderly, nontoxic, triage nursing summary reviewed, vital signs reviewed, awake/alert. Eyes normal conjunctivae and sclera, EOMI, PERRLA. HENT normal inspection, atraumatic, moist mucus membranes, no epistaxis, neck supple/ no meningismus, no raccoon eyes. Respiratory clear to auscultation bilaterally, normal breath sounds, no respiratory distress, no wheezing. Cardiovascular left chest pacemaker dressing clean dry and intact, rate normal , regular rhythm, no murmur, no edema, distal pulses normal. Gastrointestinal soft, non-tender, no rebound, no guarding, normal bowel sounds, no distension, no pulsatile mass. Genitourinary no CVA tenderness. Musculoskeletal bilateral lower extremity edema, no midline vertebral tenderness , full range of motion, no calf swelling, no tenderness of extremities, no meningismus, good pulses, neurovascularly intact. Skin pink, warm, & dry, no rash, skin atraumatic. Neurologic awake, alert and oriented x 3, AAOx3, moves all 4 extremities equally, motor intact, sensory intact, CN II-XII intact, normal cerebellar, normal vision, normal speech. Psychiatric normal mood/affect. Heme/Lymph/Immune no lymphadenopathy. Differential Diagnosis: Includes but is not limited to in a particular order electrolyte disturbance, orthostatic hypotension, infection, CHF Medical Decision Making: Plan for this patient chest x-ray, EKG, full supervisor spinning obtain labs, check electrolytes, check BNP. Check UA and re-evaluate. Re-evaluation: 1241: Patient's blood work, x-ray reviewed. He does have hyponatremia which is new, additionally he appears volume depleted on exam he does have peripheral lower extremity edema. His orthostatics were positive. The patient will need to be admitted for: Orthostatic hypotension, lightheadedness, generalized weakness, volume depletion and hyponatremia. New pacemaker. Source: Patient, Family - Personal History Current Tetanus Diphtheria and Acellular Pertussis (TDAP): Unsure - Medical/Surgical History Hx Asthma: No Hx Chronic Respiratory Disease: No Hx Diabetes: Yes Hx Cardiac Disease: No Hx Renal Disease: No Hx Cirrhosis: No Hx Alcoholism: No Hx HIV/AIDS: No Hx Splenectomy or Spleen Trauma: No Other PMH: Diabetes, bradycardia, prostatectomy, glaucoma L eye, fall February 2018- back injury, PACEMAKER - Social History Smoking Status: Never smoked Constitutional: Initial Vital Signs Temperature (C) 36.7 C 03/30/18 23:12 Heart Rate 61 03/30/18 23:12 Respiratory Rate 16 03/30/18 23:12 Blood Pressure 146/65 H 03/30/18 23:12 O2 Sat (%) 96 03/30/18 23:12 O2 Delivery Mode Room Air Allergies/Adverse Reactions: No Known Allergies Allergy (Verified 03/30/18 23:12) Home Medications: Medication Instructions Recorded Acetaminophen [Tylenol 650/20.3ML 650 mg PO Q4HRS PRN udcup 03/28/18 Oral Liq (*)] Aspirin [Aspirin 81mg (*)] 81 mg PO DAILY tab.chew 03/28/18 Dexamethasone [Decadron 0.5 mg (*)] 1 mg PO BID 9 Days 03/28/18 Dexamethasone [Decadron 2 MG (*)] 2 mg PO DAILY 8 Days tab 03/28/18 Gabapentin [Neurontin Oral Liquid] 300 mg PO HS #1 bottle 03/28/18 Insulin Glargine [Lantus Syringe] 5 units SC HS #100 unit 03/28/18 Insulin Lispro [HumaLOG LISPRO] 2 - 10 unit SC TIDMEAL #100 unit 03/28/18 Lisinopril [Zestril 5 mg (*)] 5 mg PO DAILY #30 tab 03/28/18 Polyethylene Glycol 3350 [Miralax 17 gm PO DAILY PRN pkt 03/28/18 17 gm (*)] Tamsulosin HCl [Flomax 0.4 MG (*)] 0.4 mg PO DAILY #30 cap 03/28/18 oxyCODONE IR [Oxycodone Ir (*)] 2.5 - 5 mg PO Q4HRS PRN #30 tab 03/28/18 Medical Decision Making - Diagnostics Imaging Results: Imaging Impressions Chest X-Ray 03/30/18 23:25 Impression: 1. Negative for pneumothorax. 2. Persistent left basilar opacity probably a combination of pleural fluid and basilar atelectasis. - Data Points Laboratory Results: Laboratory Results 03/30/18 23:35 03/30/18 23:35 03/30/18 03/30/18 03/30/18 23:42 23:35 23:35 WBC RBC Hgb Hct MCV MCH MCHC RDW Plt Count MPV Neut % (Auto) Lymph % (Auto) [place] % (Auto) Eos % (Auto) Baso % (Auto) Nucleat RBC Rel Count Absolute Neuts (auto) Absolute Lymphs (auto) Absolute Monos (auto) Absolute Eos (auto) Absolute Basos (auto) Absolute Nucleated RBC Immature Gran % Immature Gran # PT 14.4 SEC SEC (12.0-15.0) INR 1.10 (0.83-1.16) APTT 25.2 SEC SEC (23.0-38.0) Sodium 128 mEq/L L mEq/L (135-145) Potassium 4.6 mEq/L mEq/L (3.3-5.0) Chloride 100 mEq/L mEq/L (97-110) Carbon Dioxide 25 mEq/l mEq/l (22-31) Anion Gap 3 mEq/L L mEq/L (8-16) BUN 20 mg/dL mg/dL (7-23) Creatinine 0.8 mg/dL mg/dL (0.7-1.3) Estimated GFR > 60 Glucose 350 mg/dL H mg/dL (70-100) Calcium 8.6 mg/dL mg/dL (8.5-10.4) Magnesium 1.7 mg/dL mg/dL (1.6-2.3) Total Bilirubin 0.5 mg/dL mg/dL (0.1-1.4) Conjugated Bilirubin 0.4 mg/dL mg/dL (0.0-0.5) Unconjugated Bilirubin 0.1 mg/dL mg/dL (0.0-1.1) AST 21 IU/L IU/L (17-59) ALT 37 IU/L IU/L (21-72) Alkaline Phosphatase 100 IU/L IU/L (38-126) POC Troponin I 0.01 ng/mL ng/mL (0.00-0.08) NT-Pro-B Natriuret Pep 493 pg/mL H pg/mL (0-450) Total Protein 6.1 g/dL L g/dL (6.3-8.2) Albumin 3.3 g/dL L g/dL (3.5-5.0) 03/30/18 23:35 WBC 7.66 10^3/uL 10^3/uL (3.80-9.50) RBC 4.35 10^6/uL L 10^6/uL (4.40-6.38) Hgb 12.1 g/dL L g/dL (13.7-17.5) Hct 36.5 % L % (40.0-51.0) MCV 83.9 fL fL (81.5-99.8) MCH 27.8 pg L pg (27.9-34.1) MCHC 33.2 g/dL g/dL (32.4-36.7) RDW 13.2 % % (11.5-15.2) Plt Count 189 10^3/uL 10^3/uL (150-400) MPV 10.9 fL fL (8.7-11.7) Neut % (Auto) 81.2 % H % (39.3-74.2) Lymph % (Auto) 12.5 % L % (15.0-45.0) [place] % (Auto) 4.8 % % (4.5-13.0) Eos % (Auto) 0.5 % L % (0.6-7.6) Baso % (Auto) 0.1 % L % (0.3-1.7) Nucleat RBC Rel Count 0.0 % % (0.0-0.2) Absolute Neuts (auto) 6.21 10^3/uL 10^3/uL (1.70-6.50) Absolute Lymphs (auto) 0.96 10^3/uL L 10^3/uL (1.00-3.00) Absolute Monos (auto) 0.37 10^3/uL 10^3/uL (0.30-0.80) Absolute Eos (auto) 0.04 10^3/uL 10^3/uL (0.03-0.40) Absolute Basos (auto) 0.01 10^3/uL L 10^3/uL (0.02-0.10) Absolute Nucleated RBC 0.00 10^3/uL 10^3/uL (0-0.01) Immature Gran % 0.9 % % (0.0-1.1) Immature Gran # 0.07 10^3/uL 10^3/uL (0.00-0.10) PT INR APTT Sodium Potassium Chloride Carbon Dioxide Anion Gap BUN Creatinine Estimated GFR Glucose Calcium Magnesium Total Bilirubin Conjugated Bilirubin Unconjugated Bilirubin AST ALT Alkaline Phosphatase POC Troponin I NT-Pro-B Natriuret Pep Total Protein Albumin Medications Given: Discontinued Medications Sodium Chloride (Ns) 500 mls @ 0 mls/hr IV ONCE ONE PRN Reason: Wide Open Stop: 03/31/18 00:27 Last Admin: 03/31/18 00:32 Dose: 500 mls Point of Care Test Results: Chemistry 03/30/18 23:42 POC Troponin I 0.01 ng/mL ng/mL (0.00-0.08) Departure - Departure Disposition: [facility] Inpatient Acute Clinical Impression: Generalized weakness, Orthostatic hypotension, Hyperglycemia, Severe muscle deconditioning, Hyponatremia Condition: Fair Referrals: NONE *PRIMARY CARE P,. [Primary Care Provider] - As per Instructions
--- NOTE | 2018-03-30 23:31 | CPEKG ---
Heart Rate: 63 RR Interval: 952 P-R Interval: 184 QRSD Interval: 86 QT Interval: 400 QTC Interval: 410 QRS Wells: -31 T Wave Wells: 39 EKG Severity - ABNORMAL ECG - EKG Impression: ATRIAL-PACED RHYTHM EKG Impression: LEFT AXIS DEVIATION Electronically Signed By: Rayshawn Tsai 31-Mar-2018 07:05:23
[2018-03-30 23:49] LABS: PLATELET COUNT 189 10^3/uL (150-400)
[2018-03-30 23:58] LABS: INR 1.1 (0.83-1.16); PROTIME(PATIENT) 14.4 SEC (12.0-15.0)
[2018-03-31] MEDS ORDERED: NS 500 ML IV ONE ×2 (00:26→00:40)
[2018-03-31] MEDS ORDERED: ONDANSETRON 4 MG/2 ML VIAL IVP PRN (00:40)
[2018-03-31] MEDS ORDERED: ONDANSETRON DISINTEGRATING 4 MG TAB PO PRN (00:40)
[2018-03-31] MEDS ORDERED: ACETAMINOPHEN 325 MG TAB PO PRN (00:40)
--- NOTE | 2018-03-31 01:09 | PDGENHP ---
History and Physical - Chief Complaint Dizziness - History of Present Illness 87 yo M w/ hx of bradycardia s/p recent PPM placement, cervical cord compression s/p fall, and diabetes presents with dizziness. Patient was recently discharged on 03/28 after hospitalization dealing with symptomatic bradycardia and sequelae of a fall. History was mostly obtained from adult daughter, who is at bedside and denied offer for diplomatic interpreter services. Patient is Central African speaking only. His daughter tells me he has been mildly confused since his fall a few weeks ago. His mental status has been stable since discharge. His main complaint was dizziness upon standing and difficulty urinating. This is in the setting of new tamsulosin therapy. Additionally, his blood glucose has been high as he is on steroids for his cervical cord compression. The patient himself denies complaints to me at this time. He and his daughter deny any infectious symptoms. Work-up in the ED notable for hyponatremia, hyperglycemia, and orthostatic VS. Case discussed with ED physician Dr. Basilio; previous records reviewed including D/C summary by Dr. Cornell dated 03/28/18. History Information - Allergies/Home Medication List Allergies/Adverse Reactions: No Known Allergies Allergy (Verified 03/30/18 23:12) I have personally reviewed and updated: family history, medical history - Past Medical History diabetes type 2, hypertension Additional medical history: Urinary retention - Surgical History Reports: pacemaker/AICD Additional surgical history: TURP - Family History Positive for: hypertension Additional family history: Adult daughter in the room, healthy - Social History Smoking Status: Never smoked Additional social history: Patient is originally from [place] and splits his time between [place] and [place], where most of his children reside. He is retired, formerly in agricultural work Review of Systems Review of Systems: ROS: 10pt was reviewed & negative except for what was stated in HPI & below Physical Exam Physical Exam: Temp Pulse Resp BP Pulse Ox 36.7 C 64 16 178/83 H 96 03/30/18 23:12 03/31/18 00:00 03/31/18 00:00 03/31/18 00:00 03/31/18 00:00 Constitutional: not in pain, chronically ill appearing Eyes: PERRL, anicteric sclera Ears, Nose, Mouth, Throat: moist mucous membranes, no oral mucosal ulcers Cardiovascular: regular rate and rhythym, no murmur, rub, or gallop, edema ( Trace b/l NATALIE), other (Pacer pocket with c/d/i dressing overlying) Respiratory: no respiratory distress, clear to auscultation Gastrointestinal: normoactive bowel sounds, soft, non-tender abdomen Skin: warm, normal color Neurologic: other (A&Ox2, hard of hearing), No facial droop Psychiatric: interacting appropriately, not anxious Lab Data & Imaging Review 03/30/18 23:35 03/30/18 23:35 WBC 7.66 10^3/uL (3.80-9.50) 03/30/18 23:35 RBC 4.35 10^6/uL (4.40-6.38) L 03/30/18 23:35 Hgb 12.1 g/dL (13.7-17.5) L 03/30/18 23:35 Hct 36.5 % (40.0-51.0) L 03/30/18 23:35 MCV 83.9 fL (81.5-99.8) 03/30/18 23:35 MCH 27.8 pg (27.9-34.1) L 03/30/18 23:35 MCHC 33.2 g/dL (32.4-36.7) 03/30/18 23:35 RDW 13.2 % (11.5-15.2) 03/30/18 23:35 Plt Count 189 10^3/uL (150-400) 03/30/18 23:35 MPV 10.9 fL (8.7-11.7) 03/30/18 23:35 Neut % (Auto) 81.2 % (39.3-74.2) H 03/30/18 23:35 Lymph % (Auto) 12.5 % (15.0-45.0) L 03/30/18 23:35 [place] % (Auto) 4.8 % (4.5-13.0) 03/30/18 23:35 Eos % (Auto) 0.5 % (0.6-7.6) L 03/30/18 23:35 Baso % (Auto) 0.1 % (0.3-1.7) L 03/30/18 23:35 Nucleat RBC Rel Count 0.0 % (0.0-0.2) 03/30/18 23:35 Absolute Neuts (auto) 6.21 10^3/uL (1.70-6.50) 03/30/18 23:35 Absolute Lymphs (auto) 0.96 10^3/uL (1.00-3.00) L 03/30/18 23:35 Absolute Monos (auto) 0.37 10^3/uL (0.30-0.80) 03/30/18 23:35 Absolute Eos (auto) 0.04 10^3/uL (0.03-0.40) 03/30/18 23:35 Absolute Basos (auto) 0.01 10^3/uL (0.02-0.10) L 03/30/18 23:35 Absolute Nucleated RBC 0.00 10^3/uL (0-0.01) 03/30/18 23:35 Immature Gran % 0.9 % (0.0-1.1) 03/30/18 23:35 Immature Gran # 0.07 10^3/uL (0.00-0.10) 03/30/18 23:35 PT 14.4 SEC (12.0-15.0) 03/30/18 23:35 INR 1.10 (0.83-1.16) 03/30/18 23:35 APTT 25.2 SEC (23.0-38.0) 03/30/18 23:35 Sodium 128 mEq/L (135-145) L 03/30/18 23:35 Potassium 4.6 mEq/L (3.3-5.0) 03/30/18 23:35 Chloride 100 mEq/L (97-110) 03/30/18 23:35 Carbon Dioxide 25 mEq/l (22-31) 03/30/18 23:35 Anion Gap 3 mEq/L (8-16) L 03/30/18 23:35 BUN 20 mg/dL (7-23) 03/30/18 23:35 Creatinine 0.8 mg/dL (0.7-1.3) 03/30/18 23:35 Estimated GFR > 60 03/30/18 23:35 Glucose 350 mg/dL (70-100) H 03/30/18 23:35 Calcium 8.6 mg/dL (8.5-10.4) 07/02/18 23:35 Magnesium 1.7 mg/dL (1.6-2.3) 03/30/18 23:35 Total Bilirubin 0.5 mg/dL (0.1-1.4) 03/30/18 23:35 Conjugated Bilirubin 0.4 mg/dL (0.0-0.5) 03/30/18 23:35 Unconjugated Bilirubin 0.1 mg/dL (0.0-1.1) 03/30/18 23:35 AST 21 IU/L (17-59) 03/30/18 23:35 ALT 37 IU/L (21-72) 03/30/18 23:35 Alkaline Phosphatase 100 IU/L (38-126) 03/30/18 23:35 POC Troponin I 0.01 ng/mL (0.00-0.08) 03/30/18 23:42 NT-Pro-B Natriuret Pep 493 pg/mL (0-450) H 03/30/18 23:35 Total Protein 6.1 g/dL (6.3-8.2) L 03/30/18 23:35 Albumin 3.3 g/dL (3.5-5.0) L 03/30/18 23:35 Imaging Review: Imaging Impressions Chest X-Ray 03/30/18 23:25 Impression: 1. Negative for pneumothorax. 2. Persistent left basilar opacity probably a combination of pleural fluid and basilar atelectasis. Visualized and Interpreted EKG results: Yes EKG Interpretation: Positive for: other (Atrially paced rhythm) Assessment & Plan Assessment: 87 yo M w/ hx of bradycardia s/p recent PPM placement, cervical cord compression s/p fall, and diabetes presents with orthostasis, hyperglycemia, hyponatremia, and urinary retention. Plan: 1. Orthostasis - Orthostatic VS confirmed in ED upon admission. I suspect this is multifactorial from dehydration and adverse effect of new alpha radha for urinary retention. It is unclear if his cervical cord compression is contributing to these symptoms. - 1 L NS and recheck orthostatic VS in the AM - Hold tamsulosin - PT/OT evaluations 2. T2DM c/b hyperglycemia - BG 350 on admission; his glucose control is currently made difficult by ongoing steroid therapy. He is significantly hyperglycemic despite insulin glargine 5 u qHS and sliding scale lispro. - Increase insulin glargine to 10 u qHS, titrate as indicated - Insulin lispro SSI standard scale - BH ACHS, D50 IV PRN for hypoglycemia 3. Hyponatremia - I suspect hypovolemic hyponatremia driven by hyperglycemia and poor PO intake. - Will obtain urine lytes and serum/urine Osms - 1 L NS, recheck BMP in the AM 4. Cervical cord compression - Complication from recent fall; patient is currently on dexamethasone for this. - Continue steroids, needs med reconciliation 5. Bradycardia - S/p recent pacemaker placement. Admission ECG shows atrially paced rhythm (personally interpreted). - Monitor on telemetry 6. Urinary retention - Tamsulosin recently started but has led to debilitating orthostasis. - Hold tamsulosin - Will have RN check PVR, may need catheter placement if persistently retaining 7. HTN - Continue home medications, cautious in setting of orthostasis. Diet - Cardiac Code - Full Ppx - LMWH, low dose Dispo - Admit under observation status
[2018-03-31] MEDS ORDERED: INSULIN LISPRO 100 UNIT/ML SC ONE (02:45)
[2018-03-31 03:31] LABS: PLATELET COUNT 179 10^3/uL (150-400)
[2018-03-31] MEDS ORDERED: ENOXAPARIN 30 MG/0.3 ML SYR SC SCH (09:00)
[2018-03-31] MEDS: INSULIN LISPRO 100 UNIT/ML SC SCH ×3 (09:24→18:44)
--- NOTE | 2018-03-31 09:53 | HOSPPROG ---
Hospitalist Progress Note Assessment/Plan: Assessment: 87 yo M w/ hx of bradycardia s/p recent PPM placement, cervical cord compression s/p fall, and diabetes presents with orthostasis, hyperglycemia, hyponatremia, and urinary retention after recent discharge 2 days prior. Plan: # Orthostasis - Orthostatic VS confirmed in ED upon admission. I suspect this is multifactorial from dehydration and adverse effect of new alpha radha for urinary retention. Has improved this am but he remains high risk for recurrent issues given lower extremity edema/elevated glucose and poor po intake. # urinary retention: recently started on tamsulosin but with orthostasis as above. Mc in place, will attempt resuming tamsulosin today and monitor, will likely dc with mc and have pt f/u with urology as an OP # T2DM c/b hyperglycemia - BG 350 on admission; his glucose control is currently made difficult by ongoing steroid therapy. He is significantly hyperglycemic despite insulin glargine 5 u qHS and sliding scale lispro. - Increase insulin glargine to 10 u qHS, titrate as indicated - Insulin lispro SSI standard scale - BH ACHS, D50 IV PRN for hypoglycemia # Hyponatremia - I suspect hypovolemic hyponatremia driven by hyperglycemia and poor PO intake. -normalized s/p 1 L NS yesterday # Cervical cord compression - Complication from recent fall; patient is currently on dexamethasone for this. - Continue steroids--per NSG plan was for 2 weeks and then taper # Bradycardia - S/p recent pacemaker placement. Admission ECG shows atrially paced rhythm (personally interpreted). - Monitor on telemetry # HTN - Continue home medications, cautious in setting of orthostasis. Diet - Cardiac Code - Full Ppx - LMWH, low dose Dispo - Admit under observation status-- will attempt to transfer to SNF today, care plan reviewed with case reviewer, met with patient and family with assistance of Assistant Terminal Manager present at bedside Subjective: no significant overnight events, patient notes feeling well today, does have some minor swelling in feet, not dizzy when up but still very weak Objective: Vital Signs Temp Pulse Resp BP Pulse Ox 36.3 C 60 16 146/66 H 99 03/31/18 07:38 03/31/18 07:38 03/31/18 07:38 03/31/18 07:38 03/31/18 07:38 Laboratory Results 03/31/18 03:14 03/31/18 03:14 03/30/18 03/31/18 04/01/18 05:59 05:59 05:59 Intake Total 1000 Output Total 870 Balance 130 PT 14.4 SEC (12.0-15.0) 03/30/18 23:35 INR 1.10 (0.83-1.16) 03/30/18 23:35 awake alert nad anicteric op clear rrr distant cta b soft nt nd 1+ ble warm dry well perfused oriented - Time Spent With Patient Time Spent with Patient: greater than 35 minutes Time Spent with Patient: Greater than 35 minutes spent on this patients care, greater than 50% of time spent counseling, educating, and coordinating care regarding the above mentioned plan. ICD10 Worksheet Patient Problems: Problems Problem Status Onset Bradycardia Acute Hyperglycemia Acute Dehydration Acute Near syncope Acute Fatigue Acute Generalized weakness Acute Orthostatic hypotension Acute Severe muscle deconditioning Acute Hyponatremia Acute
--- NOTE | 2018-03-31 11:59 | ASMTCMCOM ---
CM Note CM Note Notes: CM met with Pt's physician. Due to Pt returning to the hospital after being D/C'ed 2 days earlier with home care physician is recommending SNF Rehab. [facility]. CM to follow. D/C Plan: Anticipate SNF Rehab Date Signed: 03/31/2018 11:58 AM Electronically Signed By:Lisbeth Santamaria
[2018-03-31] MEDS ORDERED: POLYETHYLENE GLYCOL 3350 17 GM PKT PO PRN (12:15)
[2018-03-31] MEDS: TAMSULOSIN HCL 0.4 MG CAP PO SCH (14:54)
[2018-03-31] MEDS: INSULIN GLARGINE 100 UNITS/ML UNIT SC SCH (21:32)
[2018-03-31] MEDS: DEXAMETHASONE 0.5 MG TAB PO SCH (21:32)
[2018-03-31] MEDS: GABAPENTIN 250 MG/5 ML 30 ML BOTTLE PO SCH (21:33)
--- NOTE | 2018-03-31 23:10 | GPROG ---
[f rep st] PROGRESS NOTE DATE OF SERVICE: 03/31/2018 Called to bedside twice by RN for family questions. Conversation was done with a bedside seo coordinator. Family was concerned of swelling in his legs. I explained that his main reason for hospitalization was due to orthostatic hypotension secondary to dehydration and Flomax. Also explained therapy's recommendations for SNF. Family was concerned because they think they can provide help at home. I explained in detail that inpatient rehabilitation has been recommended. We will await PT evaluation tomorrow and work with Case Management. Recent pacemaker: There was question why did not have his sling. He is on precautions for 2 weeks. He should not lift his arm above his head or behind his back, and he can wear sling at bedtime. Time spent on visit: 30 minutes, counseling family on orthostasis, pacemaker, and discharge plan. /[id number]/MODL MTDD
[2018-04-01] MEDS: ENOXAPARIN 40 MG/0.4 ML SYR SC SCH (09:36)
[2018-04-01] MEDS: INSULIN LISPRO 100 UNIT/ML SC SCH ×3 (09:37→19:16)
[2018-04-01] MEDS: TAMSULOSIN HCL 0.4 MG CAP PO SCH (09:37)
[2018-04-01] MEDS: ASPIRIN 81 MG CHEWABLE TAB PO SCH (09:38)
[2018-04-01] MEDS: DEXAMETHASONE 0.5 MG TAB PO SCH ×2 (09:38→21:21)
--- NOTE | 2018-04-01 10:00 | ASMTCMCOM ---
CM Note CM Note Notes: Chart reviewed patient is Medicaid only no senior living care benefits. Will require screen for eligibility for exterminator medicaid . CM to follow. Plan: TBD Date Signed: 04/01/2018 09:59 AM Electronically Signed By:Mayra Barbosa RN
--- NOTE | 2018-04-01 15:35 | GCON ---
[f rep st] CONSULTATION DATE OF CONSULTATION: 04/01/2018 CHIEF COMPLAINT: The patient is an 87-year-old man with urinary retention. HISTORY OF PRESENT ILLNESS: The patient was reportedly in his normal state of health until he fell d own approximately 2 weeks ago, and developed weakness in his arms and legs. He was admitted to [facility] and seen by one of my partners, neurosurgeon, Dr. Valero, who treated him with [facility] and reportedly sent him home. The patient had some cardiac issues last week, and was readmitt ed to [facility], underwent placement of a pacemaker, and was sent home again. He pr esented today to the [facility] Emergency Room with urinary retention and had over 10 00 cc in his bladder when catheterized. He presents now for neurosurgical consultation. On further questioning with the daughter as an transmitter operator, he is actually improving with regard to his strength in his upper and lower extremities, although his urinary retention has persisted. PAST MEDICAL AND SURGICAL HISTORY: Insulin-dependent diabetes mellitus, cervical stenosis as noted a walter, and cardiac issues status post pacemaker placement last week. MEDICATIONS ON ADMISSION: Insulin and multiple other medications, but the daughter does not know wha t they are. DRUG ALLERGIES: None known. FAMILY HISTORY: Noncontributory. SOCIAL HISTORY: The patient is , has 11 children, and lives in [place]. NEUROLOGIC EXAMINATION: The patient is sleepy, but awakens to voice and follows commands. He is [place] t[place]-speaking only. He moves all of his extremities well, although he is globally weak at about 4+/5 , but this may be age related. His sensation and reflexes are as to be expected. DIAGNOSTIC STUDIES: Unfortunately, we do not have the MRI from 2 weeks ago at [place]. IMPRESSION/RECOMMENDATIONS: This is an 87-year-old man with what sounds like cervical stenosis in ad dition to other medical problems and a recovering myelopathy. We will repeat the MRI of the cervical spine and formulate a plan thereafter. /[id number]/MODL
--- NOTE | 2018-04-01 15:39 | HOSPPROG ---
Hospitalist Progress Note Assessment/Plan: * Acute urinary retention -may be BPH but concern for cervical cord compression -h/o TURP -check MRI C spine -continue mc * Traumatic cervical cord compression -concern for increased weakness, ? saddle anesthesia -d/w Dr. Moore - neurosurgery to consult * Bradycardia s/p recent PCM -check whether MRI compatible device * DM -worsened control on steroids -increased lantus * Orthostasis - may be due to Flomax * Pseudogout -start colchicine Subjective: No pain. 2 person max assist for transfer. Objective: Vital Signs Temp Pulse Resp BP Pulse Ox 36.3 C 60 14 118/71 95 04/01/18 08:42 04/01/18 12:24 04/01/18 12:24 04/01/18 08:42 04/01/18 12:24 Laboratory Results 03/31/18 03:14 03/31/18 03:14 03/31/18 04/01/18 04/02/18 05:59 05:59 05:59 Intake Total 1000 680 Output Total 676 417 0565 Balance 130 130 -1425 PT 14.4 SEC (12.0-15.0) 03/30/18 23:35 INR 1.10 (0.83-1.16) 03/30/18 23:35 - Physical Exam Constitutional: no apparent distress, appears nourished, not in pain Cardiovascular: regular rate and rhythym, no murmur, rub, or gallop Respiratory: no respiratory distress, no rales or rhonchi, clear to auscultation Gastrointestinal: normoactive bowel sounds, soft, non-tender abdomen, no palpable masses Skin: no rashes or abrasions, no fluctuance, no induration Musculoskeletal: generalized weakness (relatively good strength bilaterally distal against resistence) Neurologic: AAOx3, other (decreased sensation in saddle area) Psychiatric: interacting appropriately, not anxious, not encephalopathic, thought process linear ICD10 Worksheet Patient Problems: Problems Problem Status Onset Generalized weakness Acute Hyperglycemia Acute Hyponatremia Acute Orthostatic hypotension Acute Severe muscle deconditioning Acute Bradycardia Acute Dehydration Acute Fatigue Acute Near syncope Acute
[2018-04-01] MEDS: COLCHICINE 0.6 MG CAP/TAB PO SCH (21:21)
[2018-04-01] MEDS: INSULIN GLARGINE 100 UNITS/ML UNIT SC SCH (21:22)
[2018-04-01] MEDS: GABAPENTIN 250 MG/5 ML 30 ML BOTTLE PO SCH (21:22)
[2018-04-02] MEDS: INSULIN LISPRO 100 UNIT/ML SC SCH ×3 (09:22→18:45)
[2018-04-02] MEDS: ENOXAPARIN 40 MG/0.4 ML SYR SC SCH (09:24)
[2018-04-02] MEDS: COLCHICINE 0.6 MG CAP/TAB PO SCH ×2 (09:24→22:35)
[2018-04-02] MEDS: TAMSULOSIN HCL 0.4 MG CAP PO SCH (09:25)
[2018-04-02] MEDS: ASPIRIN 81 MG CHEWABLE TAB PO SCH (09:25)
[2018-04-02] MEDS: DEXAMETHASONE 0.5 MG TAB PO SCH ×2 (09:25→22:34)
--- NOTE | 2018-04-02 10:06 | PDMN ---
Medical Necessity Medical necessity: Change to IP, as of 04/01/18, per MD; los >2 mn for ongoing management of acute urinary retention w/increasing weakness; requiring 2 max assist; concern for cervical cord compression s/p fall; admit for Neuro consult , MRI of spine & therapies; comorbid advanced age; per progress note & order 04/01
--- NOTE | 2018-04-02 10:23 | HOSPPROG ---
Hospitalist Progress Note Assessment/Plan: * Acute urinary retention -may be BPH but concern for cervical cord compression -h/o TURP -check MRI C spine -continue mc * Traumatic cervical cord compression -concern for increased weakness, ? saddle anesthesia -d/w Dr. Moore - neurosurgery to consult * Bradycardia s/p recent PCM -check whether MRI compatible device * DM -worsened control on steroids -increased lantus * Orthostasis - may be due to Flomax * Pseudogout -start colchicine Objective: Vital Signs Temp Pulse Resp BP Pulse Ox 36.3 C 66 12 168/74 H 93 04/02/18 05:46 04/02/18 05:46 04/02/18 05:46 04/02/18 05:46 04/02/18 05:46 04/01/18 04/02/18 04/03/18 05:59 05:59 05:59 Intake Total 350 Output Total 1999 Balance 350 -2000 PT 14.4 SEC (12.0-15.0) 03/30/18 23:35 INR 1.10 (0.83-1.16) 03/30/18 23:35 ICD10 Worksheet Patient Problems: Problems Problem Status Onset Generalized weakness Acute Hyperglycemia Acute Hyponatremia Acute Orthostatic hypotension Acute Severe muscle deconditioning Acute Bradycardia Acute Dehydration Acute Fatigue Acute Near syncope Acute
--- NOTE | 2018-04-02 12:13 | ASMTCMCOM ---
CM Note CM Note Notes: Patient still experiencing acute urinary retention w concern for cervical spince compression. Neurosurgery to consult. If an MRI is required, patient will have to go to another facility that has a machine that's compatible with his pacer leads. Right now, it seems that the conversation will center around surgery v rehab. An order for an inpatient rehab consult has been placed. Case Management will follow. Date Signed: 04/02/2018 12:12 PM Electronically Signed By:Bettye Yen RN
--- NOTE | 2018-04-02 14:40 | GCON ---
[f rep st] CONSULTATION NEUROSURGERY CONSULTATION NOTE CHIEF COMPLAINT: Incontinence and weakness. HISTORY OF PRESENT ILLNESS: This is an 87-year-old male who has a somewhat complicated recent histor y. He was is recently admitted for bradycardia and is status post pacemaker placement approximately a week ago. He was also seen at that time for cervical cord compression, status post fall. The dal[place] ent was originally seen by Dr. Valero in [place] where he was found on his MRI to have some concerni ng cervical cord compression, but to my understanding there was no weakness at that time. He was lat er discharged and then readmitted to [facility] after that with complaints of bradyca rdia and subsequently had a pacemaker placed. He comes into the hospital yesterday with worsening co mplaints of urinary retention as well as confusion and some weakness as well. The patient at this ti me denies any neck pain or back pain. Denies any numbness, tingling, pain in his arms or legs. His family, his son who is by his bedside today is helping to translate for the patient and says that mos tly he was brought back into the hospital this time due to some swelling in his legs. The patient's son notes that other than that he has been doing better at home. It is somewhat hard to get a full a nd accurate history given language barriers, but we did receive most of his history from his family a t his bedside today along with review of the electronic medical record. REVIEW OF SYSTEMS: All pertinent positive and negative review of systems are as stated in the HPI. PAST MEDICAL HISTORY: Significant for diabetes type 2, hypertension, bradycardia, urinary retention, cervical stenosis. PAST SURGICAL HISTORY: History of pacemaker placement and TURP procedure. FAMILY HISTORY: Hypertension. SOCIAL HISTORY: Patient denies any tobacco use. The patient is originally from [place] and splits hi s time between [place] and [place] where most of his children reside. 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 HOME MEDICATIONS: Include Tylenol, aspirin, Neurontin, lisinopril, oxycodone, MiraLAX, Flomax, Decad pamela, insulin Lantus and Humalog. OBJECTIVE: VITAL SIGNS: Blood pressure 135/69, heart rate 63, respiratory rate 12, O2 saturation 92 % on room air, temperature 36.8 degrees Celsius. CONSTITUTIONAL: The patient is somewhat confused t o questions. He is otherwise alert and following commands. HEENT: Head is normocephalic, atraumati c. Eyes: Pupils are equal, react to light accommodation. Extraocular muscles are intact. NECK: N ontender to palpation over the midline and the cervical spine has full range of motion. NEUROLOGIC: Gross neurological motor exam of bilateral upper extremities, exam is somewhat hard to participate b y following commands; however, with the help of the son translating, does move bilateral upper extrem ities and lower extremities, with equal strength in all muscle groups including deltoids, biceps, tri ceps, wrist extensors, flexors, interossei and lever operator and bilateral lower extremities 5/5 and equal in strength in quadriceps, hamstrings, dorsiflexion, plantar flexion, and EHL. Gait was not observed, b ut per son was walking with a walker earlier to the bathroom. Harrison's negative bilaterally. Clonu s negative. Sensation is intact to light touch. EXTREMITIES: No cyanosis or edema noted. Does hav e some tenderness to the bilateral lower extremities and concern for some swelling there. However, t here is no pitting edema present. LABORATORY DATA: Review, white blood cell count 7.76, red blood cell count of 4.79, hemoglobin 12.9, hematocrit 40.5, platelets of 179. INR 1.10, APTT 25.2, PT 14.4. Glucose 244. IMAGING: Review. An MRI of the cervical spine was reviewed from [facility] and did sh ow some severe central canal stenosis at multiple levels including C1-2, 4-5, 5-6. There are also so me cord signal changes at C1-2. His reports from [facility] reveal multilevel cervical spine degenerative changes as discussed, with spinal stenosis at multiple levels and foraminal impin gement as discussed. There is no disk herniation or evidence of ligamentous injury. There is centra l cord signal abnormality noted at the C2 level as well as to a lesser extent at the C5-6 level sugge sting possible cord contusion or edema relating to chronic cord compression. Cervical spine x-ray was performed with flexion-extension views today at [facility], which shows multilevel spondylosis with mild instability, and on the neutral lateral view there is st raightening of the normal cervical curvature with anterior carriage of approximately 45 degrees. The re is severe degenerative narrowing at C5-6 where there are both ventral and dorsal osteophytes prese nt. There is moderate narrowing of the C6-7 disk space with prominent ventral osteophytes present. There is a 2 mm spondy at C4-5, a 3 mm spondylolisthesis at C6-7, and a 5 mm spondylolisthesis at C7- T1, and a 3.5 mm spondylolisthesis at T1-T2. In flexion, there is a new mild 3 mm spondylolisthesis at C3-4; no significant change at 4-5, and a new 2-3 mm spondylolisthesis at C5-6, increased 4 mm spo ndylolisthesis at C6-7, and a stable spondy at T1-T2. In extension, the spondylolisthesis at C4-5 re duces. The spondylolisthesis at C6-7 decreases slightly. There is no change in the spondylolisthesi s at C7-T1. ASSESSMENT AND PLAN: This is an 87-year-old male who has a complex medical history and who received a pacemaker 1 week ago. The patient was also seen in [facility] by Dr. Valero on 03/18 after an unwitnessed fall in the bathroom, and was diagnosed with mild central cord syndrome an d severe multilevel cervical stenosis. At that time, according to Dr. Valero's consultation, the mecca edwards did not want any surgery and wanted to follow up as an outpatient. He was then discharged, but w as recently readmitted to [facility] yesterday with complaints of urinary retention a nd weakness. Since his consults at [facility], he has had a pacemaker placed and is un able to get an MRI. Even though his pacemaker is MRI compatible, the leads are apparently not and is unable to get a repeat MRI of cervical spine at this time. Flexion-extension films were performed a s well, which show some instability. I have discussed this with Dr. Lmia as well as the [facility] pitromeliat and further plans for surgery are unknown at this time. I will speak with Dr. Valero later today, as he was going to see the patient on Friday in his clinic, but given his recent decline at [facility] it will be discussed whether we move to surgery sooner versus other palliative care options. Will update with further plan once I have spoken to Dr. Valero. At this time, please continue any physic al therapy and occupational therapy. He may continue to resume a normal diet at this time. /[id number]/MODL
--- NOTE | 2018-04-02 15:26 | HOSPPROG ---
Hospitalist Progress Note Assessment/Plan: * Acute urinary retention -BPH vs cervical cord compression -h/o TURP -continue mc -restart flomax -neurosurgery does not think this is related to cord compression * Severe cervical stenosis with contusion/compression due to recent trauma -continue to hold off on surgery given advanced age -taper steroids -weakness improving * Bradycardia s/p recent PCM -PCM is MRI compatible, leads are not -if outpatient MRI needed, [facility] has compatible protocol * DM -worsened control on steroids -increased lantus * Orthostasis - may be due to Flomax * Pseudogout -start colchicine Subjective: no new complaints. Objective: Vital Signs Temp Pulse Resp BP Pulse Ox 36.8 C 63 12 135/69 H 92 04/02/18 13:23 04/02/18 13:23 04/02/18 13:23 04/02/18 13:23 04/02/18 13:23 04/01/18 04/02/18 04/03/18 05:59 05:59 05:59 Intake Total 350 Output Total 2000 Balance 350 -2000 PT 14.4 SEC (12.0-15.0) 03/30/18 23:35 INR 1.10 (0.83-1.16) 03/30/18 23:35 d/w Neurosurgery and cardiology PA Cervical xray - mild instability - Time Spent With Patient Time Spent with Patient: greater than 35 minutes Time Spent with Patient: Greater than 35 minutes spent on this patients care, greater than 50% of time spent counseling, educating, and coordinating care regarding the above mentioned plan. - Physical Exam Constitutional: no apparent distress, appears nourished, not in pain Cardiovascular: regular rate and rhythym, no murmur, rub, or gallop Respiratory: no respiratory distress, no rales or rhonchi, clear to auscultation Gastrointestinal: normoactive bowel sounds, soft, non-tender abdomen, no palpable masses Skin: no rashes or abrasions, no fluctuance, no induration Neurologic: AAOx3, sensation intact bilaterally Psychiatric: interacting appropriately, not anxious, not encephalopathic, thought process linear ICD10 Worksheet Patient Problems: Problems Problem Status Onset Generalized weakness Acute Hyperglycemia Acute Hyponatremia Acute Orthostatic hypotension Acute Severe muscle deconditioning Acute Bradycardia Acute Dehydration Acute Fatigue Acute Near syncope Acute
[2018-04-02] MEDS: INSULIN GLARGINE 100 UNITS/ML UNIT SC SCH (22:34)
[2018-04-02] MEDS: GABAPENTIN 250 MG/5 ML 30 ML BOTTLE PO SCH (22:35)
[2018-04-03] MEDS: DEXAMETHASONE 0.5 MG TAB PO SCH ×2 (08:44→21:09)
[2018-04-03] MEDS: ASPIRIN 81 MG CHEWABLE TAB PO SCH (08:44)
[2018-04-03] MEDS: ENOXAPARIN 40 MG/0.4 ML SYR SC SCH (08:44)
[2018-04-03] MEDS: COLCHICINE 0.6 MG CAP/TAB PO SCH ×2 (08:44→21:10)
[2018-04-03] MEDS: TAMSULOSIN HCL 0.4 MG CAP PO SCH (08:44)
[2018-04-03] MEDS: INSULIN LISPRO 100 UNIT/ML SC SCH ×3 (09:00→17:46)
--- NOTE | 2018-04-03 09:46 | NEUSURGPN ---
Assessment/Plan: 87y/o male with cervical stenosis and mild central cord syndrome. Neuro stable Okay to d/c to [facility]. Continue PT/OT as tolerated. Follow up with Dr. Valero once d/c from [facility]. Subjective: Denies any new pain, numbness, tingling or weakness. Objective: NAD A&Ox3 MAEx4 Sensation intact Catheter Insertion Date: 03/31/18 - Physician Discussed Patient with : Anjum Neurosurgery Physical Exam - Vitals, I&O, Labs I and O 04/02/18 04/03/18 04/04/18 05:59 05:59 05:59 Intake Total 350 300 Output Total 3950 Balance 350 -3650 Intake: Oral (ml) 350 300 Output: Urine (ml) 3950 Catheter 3950 Other: Number of Voids Catheter 1 Number of Stools Catheter 1 Incontinence 1 Vital Signs Temp Pulse Resp BP Pulse Ox 36.7 C 64 16 139/74 H 95 04/03/18 08:30 04/03/18 08:30 04/03/18 08:30 04/03/18 08:30 04/03/18 08:30 ICD10 Worksheet Patient Problems: Problems Problem Status Onset Generalized weakness Acute Hyperglycemia Acute Hyponatremia Acute Orthostatic hypotension Acute Severe muscle deconditioning Acute Bradycardia Acute Dehydration Acute Fatigue Acute Near syncope Acute
--- NOTE | 2018-04-03 14:41 | HOSPPROG ---
Hospitalist Progress Note Assessment/Plan: * Acute urinary retention -BPH vs cervical cord compression -h/o TURP -continue mc - voiding trials at rehab -restart flomax * Severe cervical stenosis with spinal contusion/compression due to recent trauma -continue to hold off on surgery given advanced age -taper steroids as outlined by Dr. Valero -weakness improving * Bradycardia s/p recent PCM -PCM is MRI compatible, leads are not -if outpatient MRI needed, [facility] has compatible protocol * DM -worsened control on steroids -increased lantus * Orthostasis - may be due to Flomax * Pseudogout -start colchicine d/w Dr. Sutton - patient accepted for inpatient rehab at [place] tomorrow am Subjective: No new complaints Objective: Vital Signs Temp Pulse Resp BP Pulse Ox 36.7 C 64 16 139/74 H 95 04/03/18 08:30 04/03/18 08:30 04/03/18 08:30 04/03/18 08:30 04/03/18 08:30 04/02/18 04/03/18 04/04/18 05:59 05:59 05:59 Intake Total 350 300 Output Total 3950 Balance 350 -3650 PT 14.4 SEC (12.0-15.0) 03/30/18 23:35 INR 1.10 (0.83-1.16) 03/30/18 23:35 - Physical Exam Constitutional: no apparent distress, appears nourished, not in pain Cardiovascular: regular rate and rhythym, no murmur, rub, or gallop Respiratory: no respiratory distress, no rales or rhonchi, clear to auscultation Gastrointestinal: normoactive bowel sounds, soft, non-tender abdomen, no palpable masses Skin: no rashes or abrasions, no fluctuance, no induration Neurologic: AAOx3, sensation intact bilaterally Psychiatric: interacting appropriately, not anxious, not encephalopathic, thought process linear ICD10 Worksheet Patient Problems: Problems Problem Status Onset Generalized weakness Acute Hyperglycemia Acute Hyponatremia Acute Orthostatic hypotension Acute Severe muscle deconditioning Acute Bradycardia Acute Dehydration Acute Fatigue Acute Near syncope Acute
--- NOTE | 2018-04-03 16:01 | ASMTCMCOM ---
CM Note CM Note Notes: 04/03/2018 Case Management Note Discussed pt during rounds this morning with and grand daughter. Discussed with Fely Houser at inpatient rehab. Family in agreement with inpatient rehab. Per Fely, pt will be limited to a 2 week stay. Pt is current with [facility]. Faxed updates. Pt has [facility] RN PT OT. Faxed updates to agency [facility]. They provide german speaking staff. Case Management d/c poc: to inpatient rehab on Friday. Case management to follow. Date Signed: 04/03/2018 04:01 PM Electronically Signed By:Sonal Washington RN
[2018-04-03] MEDS: GABAPENTIN 250 MG/5 ML 30 ML BOTTLE PO SCH (21:08)
[2018-04-03] MEDS: INSULIN GLARGINE 100 UNITS/ML UNIT SC SCH (21:39)
--- NOTE | 2018-04-04 06:08 | NEUSURGPN ---
Assessment/Plan: Assessment: 87y/o male with cervical stenosis and mild central cord syndrome Plan: -Neuro stable -no surgery recommended at this time -Okay to d/c to [facility] this am -family and patient updated and understands and agree -continue PT/OT as tolerated. -follow up with Dr. Valero once d/c from [facility] -please call with any changes or concerns -pt and family understand and agree Subjective: Awake and alert. Rested fine last night. No barnes/neck/chest/abd or gu complaints. No f/c/n/v/d. Objective: AAO x 3, PERRLA/EOMI no droop follows all commands MAEx4 5/5 BUE/BLE = sensation intact Neuro Check Frequency: per routine Urinary Catheter in Place: No Catheter Insertion Date: 03/31/18 - Physician Discussed Patient with : Anjum Neurosurgery Physical Exam - Vitals, I&O, Labs I and O 04/03/18 04/04/18 04/05/18 05:59 05:59 05:59 Intake Total 300 780 Output Total 3950 1800 Balance -3650 -1020 Intake: Oral (ml) 300 780 Output: Urine (ml) 3950 1800 Catheter 3950 1800 Other: Number of Voids Catheter 1 Toilet 1 Number of Stools Toilet 1 Vital Signs Temp Pulse Resp BP Pulse Ox 36.5 C 65 16 118/59 L 97 04/04/18 04:00 04/04/18 04:00 04/04/18 04:00 04/04/18 04:00 04/04/18 04:00 ICD10 Worksheet Patient Problems: Problems Problem Status Onset Generalized weakness Acute Hyperglycemia Acute Hyponatremia Acute Orthostatic hypotension Acute Severe muscle deconditioning Acute Bradycardia Acute Dehydration Acute Fatigue Acute Near syncope Acute
[2018-04-04 08:33] VITALS: BP 141/72
[2018-04-04] MEDS: TAMSULOSIN HCL 0.4 MG CAP PO SCH (08:56)
[2018-04-04] MEDS: INSULIN LISPRO 100 UNIT/ML SC SCH ×2 (08:56→12:50)
[2018-04-04] MEDS: ENOXAPARIN 40 MG/0.4 ML SYR SC SCH (08:56)
[2018-04-04] MEDS: ASPIRIN 81 MG CHEWABLE TAB PO SCH (08:56)
[2018-04-04] MEDS: DEXAMETHASONE 0.5 MG TAB PO SCH (08:56)
[2018-04-04] MEDS: COLCHICINE 0.6 MG CAP/TAB PO SCH (08:56)
--- NOTE | 2018-04-04 10:49 | HOSPPROG ---
Hospitalist Progress Note Assessment/Plan: *Acute urinary retention -BPH vs cervical cord compression -h/o TURP -continue mc - voiding trials at rehab -restart flomax IS HAVING SOME DIZZINESS would follow orthostatics at rehab Severe cervical stenosis with spinal contusion/compression due to recent trauma -continue to hold off on surgery given advanced age -taper steroids as outlined by Dr. Valero -weakness improving Bradycardia s/p recent PCM -PCM is MRI compatible, leads are not -if outpatient MRI needed, [facility] has compatible protocol DM -worsened control on steroids -increased lantus Orthostasis - may be due to Flomax Pseudogout -start colchicine to rehab today > 30 minutes Subjective: has bed at rehab Objective: Vital Signs Temp Pulse Resp BP Pulse Ox 36.6 C 63 18 141/72 H 99 04/04/18 08:32 04/04/18 08:32 04/04/18 08:32 04/04/18 08:32 04/04/18 08:32 04/03/18 04/04/18 04/05/18 05:59 05:59 05:59 Intake Total 300 780 Output Total 3950 1800 Balance -3650 -1020 PT 14.4 SEC (12.0-15.0) 03/30/18 23:35 INR 1.10 (0.83-1.16) 03/30/18 23:35 - Physical Exam Constitutional: no apparent distress, appears nourished Eyes: PERRL, anicteric sclera Ears, Nose, Mouth, Throat: moist mucous membranes, hearing normal Cardiovascular: regular rate and rhythym, no murmur, rub, or gallop, other ( pacer site c/d/i) Respiratory: no respiratory distress, no rales or rhonchi Gastrointestinal: normoactive bowel sounds Genitourinary: mc in urethra Skin: warm, normal color Musculoskeletal: No full muscle strength Neurologic: AAOx3 ICD10 Worksheet Patient Problems: Problems Problem Status Onset Generalized weakness Acute Hyperglycemia Acute Hyponatremia Acute Orthostatic hypotension Acute Severe muscle deconditioning Acute Bradycardia Acute Dehydration Acute Fatigue Acute Near syncope Acute
--- NOTE | 2018-04-04 10:52 | PDIAF ---
- Diagnosis Diagnosis: spinal stenosis Code Status: Full Code - Medication Management Discharge Medications: Medications to Continue on Transfer Acetaminophen [Tylenol 650/20.3ML Oral Liq (*)] 650 mg PO Q4HRS PRN udcup 03/28 [Last Taken Unknown] Aspirin [Aspirin 81mg (*)] 81 mg PO DAILY tab.chew 03/28/18 [Last Taken ] Gabapentin [Neurontin Oral Liquid] 300 mg PO HS #1 bottle 03/28/18 [Last Taken 03/30/18] Lisinopril [Zestril 5 mg (*)] 5 mg PO DAILY #30 tab 03/28/18 [Last Taken ] Polyethylene Glycol 3350 [Miralax 17 gm (*)] 17 gm PO DAILY PRN pkt 03/28/18 [ Last Taken 03/30/18] Tamsulosin HCl [Flomax 0.4 MG (*)] 0.4 mg PO DAILY #30 cap 03/28/18 [Last Taken 03/30/18] oxyCODONE IR [Oxycodone Ir (*)] 2.5 - 5 mg PO Q4HRS PRN #30 tab 03/28/18 [Last Taken 03/30/18] Colchicine [Colchicine (*)] 0.6 mg PO BID ea 04/04/18 [Last Taken Unknown] Dexamethasone [Decadron 0.5 mg (*)] 0.5 mg PO BID tab 04/04/18 [Last Taken Unknown] Dexamethasone [Decadron 0.5 mg (*)] 0.5 mg PO DAILY tab 04/04/18 [Last Taken Unknown] Insulin Glargine [Lantus Syringe] 10 units SC HS unit 04/04/18 [Last Taken Unknown] Insulin Lispro [HumaLOG LISPRO] 0 unit SC TIDMEAL unit 04/04/18 [Last Taken Unknown] Discharge Medications: Refer to the Discharge Home Medication list for PRN reason. - Orders Services needed: Registered Nurse, Certified Recreation Specialist, Physical Therapy, Occupational Therapy, Speech Language Pathologist Diet Recommendation: ADA 2000 consistent carb - Follow Up Care Current Providers and Referrals: NONE *PRIMARY CARE P,. [Primary Care Provider] - As per Instructions
--- NOTE | 2018-04-04 12:25 | ASMTDCNOTE ---
Case Management Discharge Discharge Order Complete? Answers: Yes Patient to Obtain Answers: Other Notes: [facility] inpatient reha b Medications Transportation Arranged Answers: [facility] W/C Case Management Transport Answers: Yes Form Complete Faxed Final Orders Answers: Yes Notes: hard fax per inpatient rehab request. availab le on [facility] as well. Agency/Facility Transfer Answers: Yes Report Printed & Faxed to Receiving Agency Family Notified Answers: Yes Notes: in room Discharge Comments Notes: 04/04/2018 Case Management Note Pt to transfer to inpatient rehab [facility] location. Arranged transport with [facility] for medicaid transport at request of inpatient rehab coordinator Fely Houser. [facility] chart picker at 12:00 on 04/04/2018. Family in room and notified of transfer. [facility] to follow after d/c. Notified both agencies of transfer to inpatient rehab. There are no further d/c needs identified. Date Signed: 04/04/2018 12:24 PM Electronically Signed By:Sonal Washington RN
--- NOTE | 2018-04-04 12:35 | ASDISCHSUM ---
Discharge Information Plan Status:Inpatient Rehab Medically Cleared to Leave:04/04/2018 Discharge Date:04/04/2018 CM D/C Disposition:[facility] ADT D/C Disposition: Projected Discharge Date:04/05/2018 05:00 PM Transportation at D/C:Medicaid Transportation Discharge Delay Reason: Follow-Up Date:04/05/2018 05:00 PM Discharge Slot: Final Diagnosis: Placement Information Referral Type:*Long Term/SNF Referral ID:[id number] Provider Name: Address 1: Phone Number: Address 2: Fax Number: [facility]: Selection Factors: State: Referral Type:*Home Health Care Services Referral ID:[id number] Provider Name:[facility] [place] Address 1:[address] [address] Phone Number: Address 2: Fax Number: [facility]:[place] Selection Factors: State:[place] Referral Type:Palliative Care Referral ID:[id number] Provider Name:[facility] Address 1:[address] Phone Number: Address 2: Fax Number: [facility]:[place] Selection Factors: State:[place] Patient Contact Information Contact Name:TREVER Relationship: Address:[address] City:[place] Alternate Phone: [facility]/Zip Code:[place] [address] Email: Financial Information Financial Class:Medicaid Primary Plan Desc:[facility] Primary Plan Number:[id number] Secondary Plan Desc: Secondary Plan Number: Assessment Information LACE LACE Length of stay for Answers: 2 days current admission Acuity / Level of Answers: Yes Care: Did the patient have an inpatient admission? Comorbidities - select Answers: Diabetes (uncontrolled or all that apply controlled) Other Notes: Pacemaker; HTN # of Emergency department Answers: 1-2 visits in the last 6 months Score: 8 Date Signed: 04/04/2018 12:34 PM Electronically Signed By:Sonal Washington RN [facility] CM Progress Note CM Note CM Note Notes: CM met with Pt's physician. Due to Pt returning to the hospital after being D/C'ed 2 days earlier with home care physician is recommending SNF Rehab. Referrals were sent to [facility] and [facility]. CM to follow. D/C Plan: Anticipate SNF Rehab Date Signed: 03/31/2018 11:58 AM Electronically Signed By:Lisbeth Santamaria [facility] CM Progress Note CM Note CM Note Notes: Chart reviewed patient is Medicaid only no intermodal dispatcher care benefits. Will require screen for eligibility for intermodal dispatcher medicaid . CM to follow. Plan: TBD Date Signed: 04/01/2018 09:59 AM Electronically Signed By:Mayra Barbosa RN [facility] CM Progress Note CM Note CM Note Notes: Patient still experiencing acute urinary retention w concern for cervical spince compression. Neurosurgery to consult. If an MRI is required, patient will have to go to another facility that has a machine that's compatible with his pacer leads. Right now, it seems that the conversation will center around surgery v rehab. An order for an inpatient rehab consult has been placed. Case Management will follow. Date Signed: 04/02/2018 12:12 PM Electronically Signed By:Bettye Yen RN [facility] CM Progress Note CM Note CM Note Notes: 04/03/2018 Case Management Note Discussed pt during rounds this morning with and grand daughter. Discussed with Fely Houser at inpatient rehab. Family in agreement with inpatient rehab. Per Fely, pt will be limited to a 2 week stay. Pt is current with [facility]. Faxed updates. [facility] has [facility] RN PT OT. Faxed updates to agency [facility]. They provide [place] speaking staff. Case Management d/c poc: to inpatient rehab on Friday. Case management to follow. Date Signed: 04/03/2018 04:01 PM Electronically Signed By:Sonal Washington RN Case Management Discharge Plan Note Case Management Discharge Discharge Order Complete? Answers: Yes Patient to Obtain Answers: Other Notes: [facility] inpatient [facility]ha b Medications Transportation Arranged Answers: [facility] W/C Case Management Transport Answers: Yes Form Complete Faxed Final Orders Answers: Yes Notes: hard fax per inpatient rehab request. [facility]ab [facility] on [employer] as well. Agency/Facility Transfer Answers: Yes Report Printed & Faxed to Receiving Agency Family Notified Answers: Yes Notes: in room Discharge Comments Notes: 04/04/2018 Case Management Note Pt to transfer to inpatient rehab [place] location. Arranged transport with [facility] for medicaid transport at request of inpatient rehab coordinator Fely Houser. [facility] cone picker at 12:00 on 04/04/2018. Family in room and notified of transfer. [facility] to follow after d/c. Notified both agencies of transfer to inpatient rehab. There are no further d/c needs identified. Date Signed: 04/04/2018 12:24 PM Electronically Signed By:Sonal Washington RN Intervention Information
[2018-04-07] MEDS ORDERED: DEXAMETHASONE 0.5 MG TAB PO SCH (09:00)
--- NOTE | 2018-04-17 15:03 | GDS ---
[f rep st] DISCHARGE SUMMARY DISCHARGE DIAGNOSES: 1. Bradycardia status post pacemaker. 2. Urinary retention. 3. Severe cervical stenosis with spinal contusion and compression from recent fall, followed by Neur osurgery. 4. Diabetes. 5. Orthostasis. 6. Pseudogout. 7. Hypertension. HOSPITAL COURSE: Please see admission history and physical by Dr. Melton. The patient presente d on the evening of the 2nd. He had been recently admitted and discharged. He presented largely wit h orthostasis and dizziness as well as in the setting of recent alpha radha therapy. He was admitt ed to the hospital, seen and followed by Neurosurgery. Holley was placed and recommended to stay in. It was felt given his advanced age, that neurosurgery was best to be deferred following rehab. He d id receive a course of steroids and increasing insulin doses. He was discharged to [facility] in rehab f or ongoing therapy. /[id number]/MODL
== END 2018-04-04 13:06 | DRG 40 ==
LOC: F2W 03-31 01:40 → OBSVTOIN 04-01 12:46
PROVIDERS: ADMIT Student in an Organized Health Care Education/Training Program; ATTEND Student in an Organized Health Care Education/Training Program
DX: S14.122A Central cord syndrome at C2 level of cervical spinal cord, initial encounter (principal); E86.0 Dehydration; E11.65 Type 2 diabetes mellitus with hyperglycemia; I95.1 Orthostatic hypotension; T44.6X5A Adverse effect of alpha-adrenoreceptor antagonists, initial encounter; R33.9 Retention of urine, unspecified; M48.02 Spinal stenosis, cervical region; E87.1 Hypo-osmolality and hyponatremia; I10 Essential (primary) hypertension; M10.9 Gout, unspecified; Z79.4 Long term (current) use of insulin; Z95.0 Presence of cardiac pacemaker; W19.XXXA Unspecified fall, initial encounter; Y92.9 Unspecified place or not applicable
CPT/HCPCS: 84484-PO; 97110-GO; 97116-GP; 97162-GP; 97166-GO; 97530-GO; 97530-GP; 97535-GO; G0378; J1650; J1815

== ENCOUNTER 2018-04-19 13:08 | Inpatient (IN) | payer MEDICAID ==
--- NOTE | 2018-04-19 13:34 | EDPHY ---
H & P Stated Complaint: D/C'd from rehab Friday;family states he is still weak Time Seen by Provider: 04/19/18 13:34 - Personal History Current Tetanus Diphtheria and Acellular Pertussis (TDAP): Unsure - Medical/Surgical History Hx Asthma: No Hx Chronic Respiratory Disease: No Hx Diabetes: Yes Hx Cardiac Disease: No Hx Renal Disease: No Hx Cirrhosis: No Hx Alcoholism: No Hx HIV/AIDS: No Hx Splenectomy or Spleen Trauma: No Other PMH: Diabetes, bradycardia, prostatectomy, glaucoma L eye, fall February 2018- back injury, PACEMAKER - Social History Smoking Status: Never smoked Constitutional: Initial Vital Signs Temperature (C) 36.6 C 04/19/18 13:18 Heart Rate 61 04/19/18 13:18 Respiratory Rate 16 04/19/18 13:18 Blood Pressure 110/58 L 04/19/18 13:18 O2 Sat (%) 96 04/19/18 13:18 O2 Delivery Mode Room Air Allergies/Adverse Reactions: No Known Allergies Allergy (Verified 04/19/18 13:17) Home Medications: Medication Instructions Recorded Colchicine [Colchicine (*)] 0.6 mg PO BID #60 ea 04/16/18 Polyethylene Glycol 3350 [Miralax 17 gm PO DAILY PRN #30 pkt 04/16/18 17 gm (*)] SITAGLIPTIN PHOSPHATE [Januvia 50 50 mg PO DAILY #30 tab 04/16/18 mg] Tamsulosin HCl [Flomax 0.4 MG (*)] 0.4 mg PO DAILY #30 cap 04/16/18 metFORMIN HCL [Glucophage 500 mg 1,000 mg PO BIDMEAL #120 tab 04/16/18 (*)] Aspirin EC [Aspirin EC 81 mg (*)] 81 mg PO DAILY 04/19/18 Bimatoprost 0.01% [Lumigan 0.01% 1 drops LEFTEYE 04/19/18 (*)] Insulin Glargine [Lantus 100 5 units SC HS 04/19/18 UNITS/ML (*)] Insulin Lispro [HumaLOG LISPRO] 2 - 10 unit SC TIDMEAL 04/19/18 Medical Decision Making ED Course/Re-evaluation: CHIEF COMPLAINT: Weakness. HISTORY OF PRESENT ILLNESS: This patient is a Citizen Of [place]-speaking 87 year old male arriving with his family for evaluation of weakness. The patient states he does not know what is happening. He denies any pain. His family member at bedside states that he has memory difficulties, and she will explain. The patient was discharged Friday from rehab after admission for cervical spine stenosis and weakness. He has had several recent admissions for various causes. He was initially doing well at the end of rehab, and was almost able to walk unassisted and engage in other normal activities for him. After returning home, the patient has become progressively weaker and has not been eating or drinking well. He can now barely walk with a walked. His family member feels this decline has been very rapid. The patient denies naysea or vomiting. He did have one episode of diarrhea. No fever, chest pain, shortness of breath, or other associated symptoms. HPI obtained primarily through daughter at bedside, with flux plant operator. REVIEW OF SYSTEMS: A 10 point review of systems was performed and is negative with the exception of the elements mentioned in the history of present illness. PHYSICAL EXAM: HR, BP, O2 Sat, RR. Temp noted General Appearance: Alert, well hydrated, appropriate, and non-toxic appearing. Head: Atraumatic without scalp tenderness or obvious injury Eyes: Pupils equal, round, reactive to light and accommodation, EOMI, no trauma , no injection. Ears: Clear bilaterally, no perforation, normal landmarks Nose: Atraumatic, no rhinorrhea, clear. Throat: There is no erythema or exudates, no lesions, normal tonsils, mucus membranes moist. Neck: Supple, 2+ carotid upstroke, nontender, no lymphadenopathy. Respiratory: No retractions, no distress, no wheezes, and no accessory muscle use. Lungs are clear to auscultation bilaterally. Cardiovascular: Regular rate and rhythm, no murmurs, rubs, or gallops. Bilateral carotid, radial, dorsalis pedis, and posterior tibial pulses intact. Good capillary refill all extremities. Gastrointestinal: Abdomen is soft, nontender, non-distended, no masses, no rebound, no guarding, no peritoneal signs. Musculoskeletal: Normal active ROM of all extremities, atraumatic. Neurological: Alert, appropriate, and interactive. The patient has normal DTRs and non-focal cranial nerves, motor, sensory, and cerebellar exam. Skin: No rashes, good turgor, no nodules on palpation. Past medical history: Cervical spine stenosis. Diabetes mellitus type 2. Bradycardia. BPH. Past surgical history: Recent pacemaker placement Family history: Noncontributory Social history: Family at bedside. Lives in [place]. Does not abuse tobacco, drugs, or alcohol. DIFFERENTIAL DIAGNOSIS: Includes but not limited to: electrolyte imbalance, sepsis, central or peripheral neurologic causes, hypoglycemia, ACS, medication effect. MEDICAL DECISION MAKIN87 year old male presents with generalized weakness after being discharged from rehab two days ago. Plan for labs including CBC, chemistries, UA. UA positive for UTI. Plan to administer IV 1gm IV ceftriaxone. 14:53 Discussed results with patient's family member at bedside. Plan to admit. Plan to consult with hospitalist. 14:54 Spoke with hospitalist service. Dr. Hooks accepts admission to med/surg for UTI, weakness. - Data Points Laboratory Results: Laboratory Results 04/19/18 13:45 04/19/18 13:45 04/19/18 04/19/18 04/19/18 14:10 13:45 13:45 WBC 6.48 10^3/uL 10^3/uL (3.80-9.50) RBC 4.65 10^6/uL 10^6/uL (4.40-6.38) Hgb 12.6 g/dL L g/dL (13.7-17.5) Hct 39.7 % L % (40.0-51.0) MCV 85.4 fL fL (81.5-99.8) MCH 27.1 pg L pg (27.9-34.1) MCHC 31.7 g/dL L g/dL (32.4-36.7) RDW 13.2 % % (11.5-15.2) Plt Count 164 10^3/uL 10^3/uL (150-400) MPV 11.0 fL fL (8.7-11.7) Neut % (Auto) 67.9 % % (39.3-74.2) Lymph % (Auto) 18.8 % % (15.0-45.0) Moffat % (Auto) 5.7 % % (4.5-13.0) Eos % (Auto) 6.3 % % (0.6-7.6) Baso % (Auto) 0.8 % % (0.3-1.7) Nucleat RBC Rel Count 0.0 % % (0.0-0.2) Absolute Neuts (auto) 4.40 10^3/uL 10^3/uL (1.70-6.50) Absolute Lymphs (auto) 1.22 10^3/uL 10^3/uL (1.00-3.00) Absolute Monos (auto) 0.37 10^3/uL 10^3/uL (0.30-0.80) Absolute Eos (auto) 0.41 10^3/uL H 10^3/uL (0.03-0.40) Absolute Basos (auto) 0.05 10^3/uL 10^3/uL (0.02-0.10) Absolute Nucleated RBC 0.00 10^3/uL 10^3/uL (0-0.01) Immature Gran % 0.5 % % (0.0-1.1) Immature Gran # 0.03 10^3/uL 10^3/uL (0.00-0.10) Sodium 138 mEq/L mEq/L (135-145) Potassium 4.5 mEq/L mEq/L (3.3-5.0) Chloride 102 mEq/L mEq/L (97-110) Carbon Dioxide 25 mEq/l mEq/l (22-31) Anion Gap 11 mEq/L mEq/L (8-16) BUN 28 mg/dL H mg/dL (7-23) Creatinine 1.0 mg/dL mg/dL (0.7-1.3) Estimated GFR > 60 Glucose 196 mg/dL H mg/dL (70-100) Calcium 9.4 mg/dL mg/dL (8.5-10.4) Urine Color YELLOW Urine Appearance HAZY Urine pH 5.0 (5.0-7.5) Ur Specific [place] 1.020 (1.002-1.030) Urine Protein NEGATIVE (NEGATIVE) Urine Ketones NEGATIVE (NEGATIVE) Urine Blood NEGATIVE (NEGATIVE) Urine Nitrate POSITIVE H (NEGATIVE) Urine Bilirubin NEGATIVE (NEGATIVE) Urine Urobilinogen NEGATIVE EU EU (0.2-1.0) Ur Leukocyte Esterase TRACE H (NEGATIVE) Urine RBC 1-3 /hpf /hpf (0-3) Urine WBC 25-50 /hpf H /hpf (0-3) Ur Epithelial Cells NONE SEEN /lpf /lpf (NONE-1+) Urine Bacteria 2+ /hpf H /hpf (NONE SEEN) Urine Mucus TRACE /lpf /lpf (NONE-1+) Urine Glucose 2+ H (NEGATIVE) 04/19/18 13:30 WBC REJ RBC TNP Hgb TNP Hct TNP MCV TNP MCH TNP MCHC TNP RDW TNP Plt Count TNP MPV TNP Neut % (Auto) TNP Lymph % (Auto) TNP Moffat % (Auto) TNP Eos % (Auto) TNP Baso % (Auto) TNP Nucleat RBC Rel Count TNP Absolute Neuts (auto) TNP Absolute Lymphs (auto) TNP Absolute Monos (auto) TNP Absolute Eos (auto) TNP Absolute Basos (auto) TNP Absolute Nucleated RBC TNP Immature Gran % TNP Immature Gran # TNP Sodium Potassium Chloride Carbon Dioxide Anion Gap BUN Creatinine Estimated GFR Glucose Calcium Urine Color Urine Appearance Urine pH Ur Specific [place] Urine Protein Urine Ketones Urine Blood Urine Nitrate Urine Bilirubin Urine Urobilinogen Ur Leukocyte Esterase Urine RBC Urine WBC Ur Epithelial Cells Urine Bacteria Urine Mucus Urine Glucose Medications Given: Bimatoprost (Lumigan 0.01%) 1 drops LEFTEYE [facility] Stop: 10/16/18 20:59 Last Admin: 04/19/18 20:33 Dose: 1 drop Colchicine (Colchicine) 0.6 mg PO BID [facility] Stop: 10/16/18 20:59 Last Admin: 04/19/18 20:33 Dose: 0.6 mg Insulin Glargine (Lantus Syringe) 5 units SC HS [facility] Stop: 10/16/18 20:59 Last Admin: 04/19/18 20:33 Dose: 5 units Insulin Human Lispro (Humalog Lispro) 2 - 10 unit SC TIDMEAL [facility] Stop: 10/16/18 17:59 Last Admin: 04/19/18 18:34 Dose: Not Given Discontinued Medications Ceftriaxone Sodium/Dextrose (Rocephin 1 Gm (Premix)) 50 mls @ 100 mls/hr IV EDNOW ONE PRN Reason: Protocol Stop: 04/19/18 15:19 Last Admin: 04/19/18 14:53 Dose: 50 mls Metformin HCl (Glucophage) 1,000 mg PO BIDMEAL [facility] Stop: 10/16/18 17:59 Last Admin: 04/19/18 18:34 Dose: Not Given Departure - Departure Disposition: [facility] Inpatient Acute Clinical Impression: Generalized weakness UTI (urinary tract infection) Qualifiers: Urinary tract infection type: acute cystitis Hematuria presence: without hematuria Qualified Code(s): N30.00 - Acute cystitis without hematuria Condition: Fair
[2018-04-19 14:04] LABS: PLATELET COUNT 164 10^3/uL (150-400)
[2018-04-19] MEDS ORDERED: ONDANSETRON DISINTEGRATING 4 MG TAB PO PRN (17:09)
[2018-04-19] MEDS ORDERED: ONDANSETRON 4 MG/2 ML VIAL IVP PRN (17:09)
[2018-04-19] MEDS ORDERED: ACETAMINOPHEN 325 MG TAB PO PRN (17:09)
[2018-04-19] MEDS ORDERED: POLYETHYLENE GLYCOL 3350 17 GM PKT PO PRN (17:10)
[2018-04-19] MEDS ORDERED: metFORMIN HCL 500 MG TAB PO SCH (18:00)
--- NOTE | 2018-04-19 18:00 | GHP ---
[f rep st] HISTORY AND PHYSICAL DATE OF ADMISSION: 04/19/2018 The patient is a pleasant 87-year-old gentleman known to me from previous admissions with a history o f diabetes, recent pacemaker placement, urinary retention, cervical spine stenosis, who was admitted to the hospital from the through the with generalized weakness, discharged to acute inpatient rehab where he did well. He had his Holley catheter removed and per exam, he was up and ambulating, shaving, particularly leading activities of daily life. During his admission, he was seen by Neurosu valentina who noted his severe cervical stenosis, initially diagnosed earlier at [facility] where he received a course of dexamethasone. That was discontinued on the . He was noted to be ambulating 150 feet with a front wheeled walker and climbing, descending 6 stairs with contact guard assist. His family notes that over the last couple of days at home, he has been home about 4 or 5 days, he barnes s gotten progressively weaker and it is beyond their ability to potentially care for him. He has no fever, chills, cough, sputum, nausea, vomiting, diarrhea. He has not had urinary pain or dysuria, ur gency, or frequency. He has been eating and drinking okay. There does not appear to be any focal weakness. His pacemaker is placed within the last month. REVIEW OF SYSTEMS: Complete 10-point review of systems conducted and negative as in the HPI. PAST MEDICAL HISTORY: 1. Cervical spine stenosis on MRI done at [place]. He has a film here showing stenosis as well. 2. He also has type 2 diabetes. 3. Bradycardia. 4. Pacemaker placement. 5. BPH. Last hemoglobin A1c was 9.1. ALLERGIES: No known drug allergies. MEDICATIONS: Aspirin, Lumigan eye drops, colchicine, glargine, lispro, metformin, MiraLAX, sitaglipt in, tamsulosin. SOCIAL HISTORY: He lives locally. Family at the bedside. FAMILY HISTORY: His son is present at the bedside and healthy. PHYSICAL EXAMINATION: PRESENTING VITALS: Temp 36.6, blood pressure 110/58, pulse 61, breathing 16 t imes a minute, 96% on room air. GENERAL: No acute distress. HEENT: Sclerae are anicteric. Oropha rynx clear. Mucous membranes are moist. NECK: Supple without lymphadenopathy or JVD. LUNGS: Jamee r to auscultation bilaterally. HEART: S1, S2. ABDOMEN: Soft, nontender, nondistended. LOWER EXTR EMITIES: Without edema. Calves are nontender. SKIN: Without rash. NEUROLOGIC: Grossly nonfocal. Patient did struggle to sit up, but was able to hold himself up. LABORATORY STUDIES: White count 6.5, hematocrit 39.7, platelets are 164,000. Sodium 138, potassium 4.5, chloride 102, bicarb 25, BUN 28, creatinine 1.0, glucose 196. UA shows 25-50 white cells. I discussed the case with Dr. Dickson Sauer, Neurosurgery. ASSESSMENT/PLAN: 87-year-old gentleman with weakness. 1. Weakness. The primary question is whether this is cervical stenosis creating weakness versus dec onditioning creating generalized weakness. I am unable to get a clear history to dissuade me one way or another from the patient. Notably, if this was cervical stenosis, he has recently discontinued s teroids, and he could have more edema that could be causing stenosis. Alternatively, the patient had recently participated in his ADLs and then had gone home and perhaps was more sedentary, became weak again on that basis. He also possibly has a urinary tract infection. To that end, I consulted Neur osurgery who will attempt to answer the question, whether they think cervical stenosis is truly causi ng his weakness. We will treat his urinary tract infection for 3 days. I will interrogate his pacem pavel and follow him on telemetry. 2. Diabetes. We will continue his medications. 3. Recent pacemaker placement. We will follow him on telemetry to make sure it is capturing. I hav e ordered this to be interrogated. 4. Prophylaxis. Pharmacologic prophylaxis indicated with low-molecular heparin. 5. Disposition: Inpatient status. I suspect he is a candidate for long-term placement. /[id number]/MODL
[2018-04-19] MEDS: INSULIN LISPRO 100 UNIT/ML SC SCH (18:34)
[2018-04-19] MEDS: BIMATOPROST 0.01% 2.5 ML OPHT.BTL LEFTEYE SCH (20:33)
[2018-04-19] MEDS: COLCHICINE 0.6 MG CAP/TAB PO SCH (20:33)
[2018-04-19] MEDS: INSULIN GLARGINE 100 UNITS/ML UNIT SC SCH (20:33)
[2018-04-20 05:32] LABS: PLATELET COUNT 170 10^3/uL (150-400)
--- NOTE | 2018-04-20 06:56 | PDMN ---
Medical Necessity Medical necessity: Pt meets INPT criteria per MD as of 04/19/18 and MCG M-300 UTI (UTI requiring 3 day of tx, with generalized weakness; comorbid diabetes, recent pacemaker placement, cervical stenosis).
[2018-04-20] MEDS: INSULIN LISPRO 100 UNIT/ML SC SCH ×2 (08:35→12:24)
[2018-04-20] MEDS: ASPIRIN 81 MG CHEWABLE TAB PO SCH (09:48)
[2018-04-20] MEDS: ENOXAPARIN 40 MG/0.4 ML SYR SC SCH (09:48)
[2018-04-20] MEDS: TAMSULOSIN HCL 0.4 MG CAP PO SCH (09:48)
[2018-04-20] MEDS: metFORMIN HCL 500 MG TAB PO SCH ×2 (09:49→18:20)
[2018-04-20] MEDS: COLCHICINE 0.6 MG CAP/TAB PO SCH ×2 (09:49→20:54)
[2018-04-20] MEDS: SITAGLIPTIN 50 MG PO SCH (09:50)
--- NOTE | 2018-04-20 11:12 | ASMTCASEMG ---
Living Arrangements What is your living Answers: With Spouse arrangement? Who do you live with? Type Of Residence What kind of residence do Answers: House you live in? Discharge Plan Comments Coordination Status Comments Notes: Pt is a 87 y/o man admitted for weakness and discharged from [facility] inpatient rehab on 04/17. CM spoke to Dr. Marvin about this case. Palliative has been ordered. Pt has a large family w/ 12 kids. Pt is japanese speaking only. PT is recommending home w/ 24hr supervision. Surgery has been consulted. Family meeting needs to take place to identify decision maker and to decide if pt will have surgery or not. CM to follow. Plan: TBD Date Signed: 04/20/2018 11:11 AM Electronically Signed By:HAILEE Chung
--- NOTE | 2018-04-20 14:12 | GCON ---
[f rep st] CONSULTATION DATE OF CONSULTATION: 04/20/2018 REASON FOR CONSULTATION: Cervical stenosis with bilateral hand weakness. HOSPITAL COURSE/HISTORY/MAJOR MEDICAL FINDINGS: Mr. Andrew Castaneda is an 87- year-old gentleman who was brought back to [facility] emergency room on 04/19/2018, for some increasing weakness. He was recently seen at [facility] by Dr. Perry Valero and was admitted there cervical spine stenosis. He was then discharged to [facility] and has been progressing somewhat over there as far as his walking goes, but has noticed that he has been having some worsening hand weakness. According to the record, he is able to ambulate approximately 150 feet with a front-wheeled walker and from his son, he has been doing okay but has noticed that his hands have been getting weaker and weaker. He was brought back to [facility] Emergency Room for further evaluation. REVIEW OF SYSTEMS: Negative, other than what is stated in the HPI. PAST MEDICAL HISTORY: Significant for cervical spine stenosis, diabetes type 2 , bradycardia, pacemaker placement, history of BPH. ALLERGIES: No known drug allergies. SOCIAL HISTORY: The patient has many family members at his bedside. He is not a current smoker. FAMILY HISTORY: Noncontributory. PHYSICAL EXAM: VITAL SIGNS: BP is 133/65, heart rate 66, he is 96% on room air. Temperature 36.7. GENERAL: The patient is in no acute distress. He is alert and oriented. He is Serbian-speaking primarily, but does follow commands quickly with translation through his son. NEURO: In his left upper extremity he is a 5/5 in his deltoids, triceps, biceps, wrist flexors, extensors, interossei, intrinsic phone operator. In the patient's right upper extremity he is a 5- in his deltoids biceps and phone operator. In the patient's bilateral lower extremities he is a 5/5 in his iliopsoas, hamstrings, quadriceps, plantar flexion, dorsiflexion and EHL bilaterally. Sensation is intact to light touch. DIAGNOSTIC REVIEW: The patient underwent a lumbar MRI at [facility], which we have reviewed previously, which demonstrated severe canal stenosis with some cord signal changes at C1-2 and stenosis at C1-2, C4-5 and C5 -6. His cervical spine x-rays that were done prior at [facility] also show straightening of the normal cervical curvature of approximately 45 degrees. There is severe degenerative narrowing at C5-6 and moderate narrowing at C6-7. There is a 2 mm spondylolisthesis of C4-5, 3 mm of spinal listhesis C6-7 and 5 mm of spondylolisthesis at C7-T1, with 3.5 mm of spondylolisthesis at T1-T2. In flexion there is 3 mm of spinal listhesis C3-4 that is increased from his neutral position, increase of 3 mm at C5-6, increase of 4 mm at C6-7. In extension the spinal listhesis at C5 is C4-5 reduced, as well as at C6-7. ASSESSMENT AND PLAN: Andrew is an 87-year-old gentleman who has a complex medical history regarding a recent pacemaker placement. 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 Dr. Valero has discussed before in the past with the patient's family undergoing posterior cervical spine decompression and stabilization. He has improved since that visit with rehabilitation and steroids. The patient has now been readmitted for new weakness and Neurosurgery was again consulted to discuss surgical options. Dr. Jhonson had discussion today with the medicine team about the pros and cons of surgical intervention and they will further discuss with the family whether or not they would like to move forward with surgical intervention at this time to include a posterior decompression and fusion with Dr. Valero. We will continue to follow the patient. We would recommend PT/OT and optimizing pain management. Dr. Johnson staffed and saw this patient this morning. /[id number]/MODL MTDD
[2018-04-20] MEDS ORDERED: D50W 25 GM/50 ML SYR IVP PRN (16:27)
--- NOTE | 2018-04-20 16:41 | HOSPPROG ---
Hospitalist Progress Note Assessment/Plan: * Cervical spinal stenosis with cord compression -surgery indication but family has refused -without surgery he will continue to get weaker -ask palliative care to arrange family meeting to discuss goals of care * UTI -IV ceftriaxone -no culture sent - will try to add on * Urinary retention - due to cord compression vs. BPH -follow bladder scans * BPH s/p TURP * Recent PCM -MRI incompatible device * DM -metformin * Pseudogout -colchicine Subjective: No new complaints. Objective: Vital Signs Temp Pulse Resp BP Pulse Ox 36.4 C 61 16 107/57 L 99 04/20/18 15:30 04/20/18 15:30 04/20/18 15:30 04/20/18 15:30 04/20/18 15:30 Laboratory Results 04/20/18 04:34 04/20/18 04:34 04/19/18 04/20/18 04/21/18 05:59 05:59 05:59 Intake Total 50 Output Total 100 Balance -50 case d/w dr. Johnson - unless family wishes to proceed with surgery, there is nothing further for neurosurgery to do Old chart reviewed regarding rehab course and improvement - Physical Exam Constitutional: no apparent distress, appears nourished, not in pain Cardiovascular: regular rate and rhythym, no murmur, rub, or gallop Respiratory: no respiratory distress, no rales or rhonchi, clear to auscultation Gastrointestinal: normoactive bowel sounds, soft, non-tender abdomen, no palpable masses Skin: no rashes or abrasions, no fluctuance, no induration Neurologic: AAOx3, sensation intact bilaterally Psychiatric: interacting appropriately, not anxious, not encephalopathic, thought process linear ICD10 Worksheet Patient Problems: Problems Problem Status Onset Generalized weakness Acute UTI (urinary tract infection) Acute Bradycardia Acute Dehydration Acute Fatigue Acute Hyperglycemia Acute Hyponatremia Acute Near syncope Acute Orthostatic hypotension Acute Severe muscle deconditioning Acute
[2018-04-20] MEDS: INSULIN LISPRO 100 UNIT/1 ML VIAL STANDARD SC SCH (18:00)
[2018-04-20] MEDS: BIMATOPROST 0.01% 2.5 ML OPHT.BTL LEFTEYE SCH (20:54)
[2018-04-20] MEDS: INSULIN GLARGINE 100 UNITS/ML UNIT SC SCH (20:54)
--- NOTE | 2018-04-21 08:51 | SOAPPROG ---
SOAUDREY Progress Note Assessment/Plan: Assessment: 87 yo male with cervical spondylitic myelopathy/cord compression able to ambulate with minimal assistance Plan: Family still undecided about surgery. If they decide to have surgery, he will need a posterior decompression/fusion. PT feels patient has improved and family feels like he is better as well Subjective: Patient lying in bed, comfortable. Denies worsening symptoms Family present. motor vehicle parts interpreter present to assist with discussion Objective: Vital Signs Temp Pulse Resp BP Pulse Ox 36.3 C 63 16 144/61 H 94 04/21/18 03:24 04/21/18 03:24 04/21/18 03:24 04/21/18 03:24 04/21/18 03:24 Laboratory Results 04/20/18 04:34 04/20/18 04:34 04/20/18 04/21/18 04/22/18 05:59 05:59 05:59 Intake Total 50 Output Total 100 Balance -50 Neuro: BABB, sens +LT ambulates with minimal assist per Physical therapy oriented x4 and follows commands ICD10 Worksheet Patient Problems: Problems Problem Status Onset Generalized weakness Acute UTI (urinary tract infection) Acute Bradycardia Acute Dehydration Acute Fatigue Acute Hyperglycemia Acute Hyponatremia Acute Near syncope Acute Orthostatic hypotension Acute Severe muscle deconditioning Acute
[2018-04-21] MEDS: TAMSULOSIN HCL 0.4 MG CAP PO SCH (09:02)
[2018-04-21] MEDS: SITAGLIPTIN 50 MG PO SCH (09:03)
[2018-04-21] MEDS: COLCHICINE 0.6 MG CAP/TAB PO SCH ×2 (09:04→20:37)
[2018-04-21] MEDS: metFORMIN HCL 500 MG TAB PO SCH ×2 (09:04→19:22)
[2018-04-21] MEDS: ENOXAPARIN 40 MG/0.4 ML SYR SC SCH (09:05)
[2018-04-21] MEDS: INSULIN LISPRO 100 UNIT/1 ML VIAL STANDARD SC SCH ×3 (09:05→18:35)
[2018-04-21] MEDS: ASPIRIN 81 MG CHEWABLE TAB PO SCH (09:05)
--- NOTE | 2018-04-21 12:10 | ASMTCMCOM ---
CM Note CM Note Notes: Family meeting with patient, his , and [address] Marvin discussed the options available to patient and answered questions about the options and patient's current medical status. The family has been asked to discuss it with all the children (12 children) and make a decision about whether to proceed with surgery or honor patient's wishes to return to [place] possibly with some hospice support before going. The family can also make the decision to take patient home with home care but were informed there isn't anything medically we can do for patient except the surgery. Likely if they take him home he will continue to get weaker and they will be returning to the hospital where we have no further treatments to offer him outside of the surgery. Ami, one of the patient's daughters has accepted the role of explaining options to the family and bringing the families decision back to Dr. Marvin in the morning. Patient is scheduled for d/c tomorrow after Dr. Marvin has spoken with the family and we know what their decision is. Patient is current with [facility]. CM will follow. Date Signed: 04/21/2018 12:09 PM Electronically Signed By:Luisa Sexton LCSW
[2018-04-21] MEDS ORDERED: NS 1,000 ML IV SCH ×2 (14:15→16:15)
[2018-04-21] MEDS: MULTIVITAMINS 1 EACH TAB PO SCH (14:37)
--- NOTE | 2018-04-21 17:58 | HOSPPROG ---
Hospitalist Progress Note Assessment/Plan: * Cervical spinal stenosis with cord compression -surgery indication but family has declined after weighing risks -without surgery he will continue to get weaker -dispo - home with HH vs. hospice * UTI -IV ceftriaxone -await culture * Urinary retention - due to cord compression vs. BPH -bladder scan 110 * BPH s/p TURP * Recent PCM -MRI incompatible device * DM -metformin * Pseudogout -colchicine * Diarrhea - check stool studies Subjective: Weak, some diarrhea ovenight Objective: Vital Signs Temp Pulse Resp BP Pulse Ox 36.5 C 63 16 106/59 L 99 04/21/18 16:00 04/21/18 16:00 04/21/18 16:00 04/21/18 16:00 04/21/18 16:00 Laboratory Results 04/20/18 04:34 04/20/18 04:34 04/20/18 04/21/18 04/22/18 05:59 05:59 05:59 Intake Total 50 Output Total 100 Balance -50 d/w Neurosurgery - Time Spent With Patient Time Spent with Patient: greater than 35 minutes (family meeting x 2 with joint sealer to discuss options, possible hospice) Time Spent with Patient: Greater than 35 minutes spent on this patients care, greater than 50% of time spent counseling, educating, and coordinating care regarding the above mentioned plan. - Physical Exam Constitutional: no apparent distress, appears nourished, not in pain Cardiovascular: regular rate and rhythym, no murmur, rub, or gallop Respiratory: no respiratory distress, no rales or rhonchi, clear to auscultation Gastrointestinal: normoactive bowel sounds, soft, non-tender abdomen, no palpable masses Skin: no rashes or abrasions, no fluctuance, no induration Neurologic: AAOx3, sensation intact bilaterally Psychiatric: interacting appropriately, not anxious, not encephalopathic, thought process linear ICD10 Worksheet Patient Problems: Problems Problem Status Onset Generalized weakness Acute UTI (urinary tract infection) Acute Bradycardia Acute Dehydration Acute Fatigue Acute Hyperglycemia Acute Hyponatremia Acute Near syncope Acute Orthostatic hypotension Acute Severe muscle deconditioning Acute
[2018-04-21] MEDS: INSULIN GLARGINE 100 UNITS/ML UNIT SC SCH (20:37)
[2018-04-21] MEDS: BIMATOPROST 0.01% 2.5 ML OPHT.BTL LEFTEYE SCH (20:37)
--- NOTE | 2018-04-22 08:20 | NEUSURGPN ---
Assessment/Plan: Assessment: 87 yo male with cervical spondylitic myelopathy/cord compression able to ambulate with minimal assistance Plan: -Family has decided not to proceed with surgery. Recommend pain management and PT/OT -PT/OT -Patient discussed with Dr Valero Please call neurosurgery with any questions/concerns Subjective: resting in bed Objective: Awakens to voice Follows all commands BABB x4 5/5 BUE aside from 4/5 left triceps Neuro Check Frequency: per routine Urinary Catheter in Place: No - Physician Discussed Patient with Dr.: Valero Neurosurgery Physical Exam - Vitals, I&O, Labs I and O 04/21/18 04/22/18 04/23/18 05:59 05:59 05:59 Output Total 350 Balance -350 Output: Urine (ml) 350 Toilet 350 Other: Intake Quantity Yes Yes Sufficient Output Comment Toilet Ptn had multiple unrecorded output Number of Voids Toilet 2 Bladder Scan Volume (ml) Toilet 111 Vital Signs Temp Pulse Resp BP Pulse Ox 36.3 C 60 19 105/55 L 91 L 04/22/18 04:00 04/22/18 04:00 04/22/18 04:00 04/22/18 04:00 04/22/18 04:00 Laboratory Results 04/20/18 04:34 04/20/18 04:34 ICD10 Worksheet Patient Problems: Problems Problem Status Onset Generalized weakness Acute UTI (urinary tract infection) Acute Bradycardia Acute Dehydration Acute Fatigue Acute Hyperglycemia Acute Hyponatremia Acute Near syncope Acute Orthostatic hypotension Acute Severe muscle deconditioning Acute
[2018-04-22] MEDS: MULTIVITAMINS 1 EACH TAB PO SCH (09:47)
[2018-04-22] MEDS: SITAGLIPTIN 50 MG PO SCH (09:47)
[2018-04-22] MEDS: ASPIRIN 81 MG CHEWABLE TAB PO SCH (09:48)
[2018-04-22] MEDS: ENOXAPARIN 40 MG/0.4 ML SYR SC SCH (09:48)
[2018-04-22] MEDS: COLCHICINE 0.6 MG CAP/TAB PO SCH (09:48)
[2018-04-22] MEDS: metFORMIN HCL 500 MG TAB PO SCH (09:48)
[2018-04-22] MEDS: TAMSULOSIN HCL 0.4 MG CAP PO SCH (09:49)
[2018-04-22] MEDS: INSULIN LISPRO 100 UNIT/1 ML VIAL STANDARD SC SCH ×2 (10:09→14:08)
[2018-04-22 11:25] VITALS: BP 113/56
--- NOTE | 2018-04-22 11:37 | PDIAF ---
- Diagnosis Diagnosis: UTI, severe cervical spine stenosis with cord compresseion Code Status: Full Code - Medication Management Discharge Medications: Medications to Continue on Transfer Colchicine [Colchicine (*)] 0.6 mg PO BID #60 ea 04/16/18 [Last Taken Unknown] Polyethylene Glycol 3350 [Miralax 17 gm (*)] 17 gm PO DAILY PRN #30 pkt [Last Taken Unknown] SITAGLIPTIN PHOSPHATE [Januvia 50 mg] 50 mg PO DAILY #30 tab 04/16/18 [Last Taken Unknown] Tamsulosin HCl [Flomax 0.4 MG (*)] 0.4 mg PO DAILY #30 cap 04/16/18 [Last Taken Unknown] metFORMIN HCL [Glucophage 500 mg (*)] 1,000 mg PO BIDMEAL #120 tab 04/16/18 [ Last Taken Unknown] Aspirin EC [Aspirin EC 81 mg (*)] 81 mg PO DAILY 04/19/18 [Last Taken Unknown] Bimatoprost 0.01% [Lumigan 0.01% (*)] 1 drops LEFTEYE HS 04/19/18 [Last Taken Unknown] Insulin Glargine [Lantus 100 UNITS/ML (*)] 5 units SC HS 04/19/18 [Last Taken Unknown] Insulin Lispro [HumaLOG LISPRO] 2 - 10 unit SC TIDMEAL 04/19/18 [Last Taken Unknown] levOFLOXACIN [levAQUIN (*)] 250 mg PO DAILY #4 tab 04/22/18 [Last Taken Unknown] Discharge Medications: Refer to the Discharge Home Medication list for PRN reason. - Orders Services needed: Home Care, Registered Nurse, Physical Therapy, Occupational Therapy Home Care Face to Face: I certify that this patient was under my care and that I had the required [id number] encounter meeting the encounter requirements on the discharge day. My findings support the fact that the patient is homebound as defined in Home Care Face to Face Continued: CMS Chapter 7 Medicare Benefits Manual 30.1.1 , The condition of the patient is such that there exists a normal inability to leave home and consequently, leaving home would require a considerable and taxing effort. Diet Recommendation: no restrictions on diet Additional Instructions: Home palliative care - Follow Up Care Current Providers and Referrals: NONE *PRIMARY CARE P,. [Primary Care Provider] - As per Instructions
--- NOTE | 2018-04-22 12:46 | ASMTDCNOTE ---
Case Management Discharge Discharge Order Complete? Answers: Yes Patient to Obtain Answers: Independently Medications Transportation Arranged Answers: Family/Friends Faxed Final Orders Answers: Yes Notes: [facility] Agency/Facility Transfer Answers: Yes Notes: [facility] Report Printed & Faxed to Receiving Agency Family Notified Answers: Yes Notes: Discharge Comments Notes: Patient is being d/c'ed home with [facility] today. The family has opted to not do surgery and they are not interested in Palliative or Hospice at this time. It was explained to the family that they will need a 24 hour caregiver as [facility] only visits and is not available for 24 hour care. The family confirmed they understood this and stated someone would always be with the patient. Spoke with Tao at [facility] and they are aware patient is d/c'ing today. Discharge summaries and transfer of care have been Allscripted to [facility]. Patient's nurse will call report. No further needs. Date Signed: 04/22/2018 12:45 PM Electronically Signed By:Luisa Sexton LCSW
--- NOTE | 2018-04-22 13:06 | ASMTLACE ---
LACE Length of stay for Answers: 3 days current admission Acuity / Level of Answers: Yes Care: Did the patient have an inpatient admission? Comorbidities - select Answers: Diabetes (uncontrolled or all that apply controlled) Other Notes: bradycardia, pacemaker, pro statectomy, glaucoma L eye # of Emergency department Answers: 3-4 visits in the last 6 months Score: 11 Date Signed: 04/22/2018 01:05 PM Electronically Signed By:Luisa Sexton LCSW
--- NOTE | 2018-04-22 17:42 | ASDISCHSUM ---
Discharge Information Plan Status:Home with Home Health Medically Cleared to Leave:04/22/2018 Discharge Date:04/22/2018 02:29 PM CM D/C Disposition:Home Health Service ADT D/C Disposition:Home Health Service Projected Discharge Date:04/22/2018 12:00 AM Transportation at D/C:Family Discharge Delay Reason: Follow-Up Date:04/22/2018 12:00 AM Discharge Slot:2 - 12:01 pm - 18:00 pm Final Diagnosis:Severe cervical spinal stenosis Placement Information Referral Type:*Home Health Care Services Referral ID:[id number] [facility] Address 1:[address] [place] [address] Address 2: City:[place] Selection Factors: State:[place] Patient Contact Information Contact Name:TREVER Relationship: Address:[address] City:[place] Alternate Phone: State/Zip Code:[place] [address] Email: Financial Information Financial Class:Medicaid Primary Plan Desc:MEDICAID [facility] [place] Primary Plan Number:[id number] Secondary Plan Desc: Secondary Plan Number: Assessment Information LACE LACE Length of stay for Answers: 3 days current admission Acuity / Level of Answers: Yes Care: Did the patient have an inpatient admission? Comorbidities - select Answers: Diabetes (uncontrolled or all that apply controlled) Other Notes: bradycardia, pacemaker, pro statectomy, glaucoma L eye # of Emergency department Answers: 3-4 visits in the last 6 months Score: 11 Date Signed: 04/22/2018 01:05 PM Electronically Signed By:Luisa Sexton LCSW [facility] Initial CM Assessment Living Arrangements What is your living Answers: With Spouse arrangement? Who do you live with? Type Of Residence What kind of residence do Answers: House you live in? Discharge Plan Comments Coordination Status Comments Notes: Pt is a 87 y/o man admitted for weakness and discharged from [facility] inpatient rehab on 04/17. CM spoke to Dr. Marvin about this case. Palliative has been ordered. Pt has a large family w/ 12 kids. Pt is hebrew speaking only. PT is recommending home w/ 24hr supervision. Surgery has been consulted. Family meeting needs to take place to identify decision maker and to decide if pt will have surgery or not. CM to follow. Plan: TBD Date Signed: 04/20/2018 11:11 AM Electronically Signed By:HAILEE Chung [facility] CM Progress Note CM Note CM Note Notes: Family meeting with patient, his , and [address] Marvin discussed the options available to patient and answered questions about the options and patient's current medical status. The family has been asked to discuss it with all the children (12 children) and make a decision about whether to proceed with surgery or honor patient's wishes to return to [place] possibly with some hospice support before going. The family can also make the decision to take patient home with home care but were informed there isn't anything medically we can do for patient except the surgery. Likely if they take him home he will continue to get weaker and they will be returning to the hospital where we have no further treatments to offer him outside of the surgery. Ami, one of the patient's daughters has accepted the role of explaining options to the family and bringing the families decision back to Dr. Marvin in the morning. Patient is scheduled for d/c tomorrow after Dr. Marvin has spoken with the family and we know what their decision is. Patient is current with [facility]. CM will follow. Date Signed: 04/21/2018 12:09 PM Electronically Signed By:Luisa Sexton LCSW Case Management Discharge Plan Note Case Management Discharge Discharge Order Complete? Answers: Yes Patient to Obtain Answers: Independently Medications Transportation Arranged Answers: Family/Friends Faxed Final Orders Answers: Yes Notes: [facility] Agency/Facility Transfer Answers: Yes Notes: [facility] Report Printed & Faxed to Receiving Agency Family Notified Answers: Yes Notes: Discharge Comments Notes: Patient is being d/c'ed home with [facility] Home Health Care today. The family has opted to not do surgery and they are not interested in Palliative or Hospice at this time. It was explained to the family that they will need a 24 hour caregiver as [facility] only visits and is not available for 24 hour care. The family confirmed they understood this and stated someone would always be with the patient. Spoke with Tao at [facility] and they are aware patient is d/c'ing today. Discharge summaries and transfer of care have been Allscripted to [facility]. Patient's nurse will call report. No further needs. Date Signed: 04/22/2018 12:45 PM Electronically Signed By:Luisa Sexton LCSW Intervention Information
--- NOTE | 2018-04-22 17:47 | GDS ---
[f rep st] DISCHARGE SUMMARY DISCHARGE DIAGNOSES: 1. Morganella urinary tract infection. 2. Severe cervical spinal stenosis with cord compression. Surgery declined. 3. Urinary retention, on Flomax. 4. Recent pacemaker, MRI incompatible device. 5. Diabetes. 6. Pseudogout. HISTORY: The patient is an 87-year-old male, who fell a few weeks ago and was seen at [facility], where he was diagnosed with severe cervical spinal stenosis with some cord compression. He was started on steroids with the hope to decrease inflammation. He was consulted by Neurosurgery, clari sandhu, family has consistently declined surgery as they are concerned regarding the risks given his advan karlie age. HE re-presented to [facility] with bradycardia and had a pacemaker placed. Unfortunately, that is an MRI incompatible device and no further MRIs can be obtained. He continued to have weakness due to his cervical spinal stenosis and cord compression and so was admitted to [facility] inpatient rehab. According to the family, he did very well in rehab and was regaining much of his strength and ADL fun ctioning. However, on the day prior to discharge from rehab, he developed diarrhea and subsequently got weaker. He was discharged from the rehab anyway. Two days later, he re-presented to our emergen cy room with ongoing weakness. The diarrhea was GI PCR negative. He does, however, have a urinary t ract infection with urine culture growing Morganella. [facility]. It is sensitive to Levaquin and will be discharged to complete a 7-day course of therapy. The family is hopeful with treatment of his UTI, his weakness will improve back to where he was during t he majority of his stay in inpatient rehab. They are aware that he has cord compression due to this severe cervical spinal stenosis, however, at this point, it is mild enough that he can continue to am bulate and function Neurosurgery met with him again and discussed surgery as an option and they neto nue to decline due to perceived risks. Hospice was discussed and offered. Given the fact he has shimon oing significant cord compression, but they are not ready at this time, but are aware that without zaragoza rgery, he is likely to decline in the future from this problem. I did arrange for home health pallia tive care. DISCHARGE MEDICATIONS: Please see computer record for full detailed list. New medications: Levaquin 250 mg p.o. daily for 4 more doses additional. ADDITIONAL DISCHARGE INSTRUCTIONS: 1. Home health, PT, OT, VNS. 2. Home health palliative care. Greater than 30 minutes' time spent arranging this discharge. Patient seen and examined by me on the date of discharge. /[id number]/MODL
== END 2018-04-22 14:29 | disposition home health service (06) | DRG 463 ==
LOC: F3E 15:32
PROVIDERS: ADMIT Internal Medicine; ATTEND Internal Medicine
DX: N39.0 Urinary tract infection, site not specified (principal); M48.02 Spinal stenosis, cervical region; E11.9 Type 2 diabetes mellitus without complications; A48.8 Other specified bacterial diseases; N40.1 Benign prostatic hyperplasia with lower urinary tract symptoms; M10.9 Gout, unspecified; R33.9 Retention of urine, unspecified; Z95.0 Presence of cardiac pacemaker
CPT/HCPCS: 96365; 97116-GP; 97161-GP; 97165-GO; 97530-GP; J0696; J1650; J1815